=== PATIENT | female | born 1965 | race Caucasian/White ===

== ENCOUNTER 2020-06-08 13:50 | Outpatient (CLI) | payer OTHER, SELFPAY ==
--- NOTE | ~2020-06-08 | MMUS_ITS ---
EXAMINATION: MM diagnostic adonay BI w grace, US breast LT limited HISTORY: Patient feels a lump at 9:00 9 cm from nipple TECHNIQUE: ML, MLO and craniocaudal 3-D tomosynthesis images of both breasts were performed and synth etic 2-D images were generated. CAD analysis was submitted and interpreted. High resolution targeted left breast ultrasound at 9:00 9 cm from nipple where patient feels a lump breast ultrasound was perf ormed. COMPARISON: None BREAST PARENCHYMAL COMPOSITION: There are scattered areas of fibroglandular density. FINDINGS: MAMMOGRAPHIC FINDINGS: No suspicious mass or architectural distortion, malignant calcification, skin thickening or retractio n is detected. No abnormality is identified at the area of clinical complaint at 9:00; there is fatty tissue in this region. Bilateral axillary tail benign-appearing lymph nodes are noted. ULTRASOUND: There is no evidence of focal abnormal solid or cystic lesion in the vicinity of the patient's compla int of lump at 9:00 9 cm from nipple. IMPRESSION: 1. No mammographic evidence of malignancy 2. Routine mammographic screening is recommended. BI-RADS Category 2: Benign finding(s). Reviewed, dictated and finalized at location A. GRINDER IMPRESSION: 1. No mammographic evidence of malignancy 2. Routine mammographic screening is recommended. BI-RADS Category 2: Benign finding(s).
== END 2020-06-08 13:51 | disposition home or self-care (01) ==
PROVIDERS: Visit Provider Nurse Practitioner Family
DX: N63.20 Unspecified lump in the left breast, unspecified quadrant (principal); R92.8 Other abnormal and inconclusive findings on diagnostic imaging of breast
CPT/HCPCS: 76642; 77062; 77066; G0279

== ENCOUNTER 2020-12-26 11:52 | Inpatient (IN) | payer OTHER, SELFPAY ==
[2020-12-26] VITALS (9 sets, daily range): BP systolic 130–159; BP diastolic 65–93; PULSE 97–113; RESP 15–20; TEMP 36.2–36.6; O2SAT 94–98
--- NOTE | ~2020-12-26 | XR_ITS ---
EXAMINATION: XR lumbar puncture diagnostic EXAM DATE: 12/27/2020 17:46 INDICATION: Altered mental status. 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 Left-sided mastoiditis. TECHNIQUE: Informed consent was obtained from the patient for doing this procedure. I discussed bene fits and risks including bleeding, infection, backache and headache. Alternatives also discussed. Rad iologist Barak Lopez M.D. performed the procedure with date of pulsed dose reduction fluoroscopy, wit h fluoroscopic time of 0.1 minutes. The DAP for this procedure was 0.2 Gycm2. A total of 3 images o btained for the exam. A timeout procedure was performed. The back was prepped in standard sterile fashion with Betadine. L3/4 entry site was chosen under fluoroscopic guidance and infiltrated with 1% lidocaine. The thecal sac was then accessed from a right paracentral approach using a 5 22G needle. Opening pressure determined to be 18 mmHg, normal. 11 of clear cerebral spinal fluid were then drain ed and placed in 4 consecutive vials which were labeled and sent to lab for analysis. There were no immediate complications. IMPRESSION: Status post fluoroscopic guided lumbar puncture. Reviewed, dictated and finalized at location A.
--- NOTE | ~2020-12-26 | CT_ITS ---
EXAMINATION: CTA brain carotid DATE: 12/27/2020 02:17 INDICATION: Headache. Speech deficit. TECHNIQUE: Computed tomographic angiography (CTA) of the head was performed with 100 mL Omnipaque-350 intravenous contrast. CTA of the neck was performed with intravenous contrast. Automated exposure co ntrol and iterative reconstruction technique were employed. The dose-length product was 1158.11 mGy-c m. Maximum intensity projection and volume rendered 3D-reconstructions were created by the technLoudcasteri st on a separate workstation. COMPARISON: Head CT 12/26/2020 FINDINGS: HEAD CTA: There is no intracranial hemorrhage, acute infarction, or abnormal intracranial mass lesion . The ventricles are normal in size. The orbits are normal. There is mucosal thickening in the parana katelin sinuses. There is a left otomastoid effusion. There is a trace right mastoid effusion. The verteb ral arteries are codominant. There is no significant stenosis of basilar artery or the posterior cere bral arteries. There is no significant stenosis of the intracranial internal carotid arteries or ante rior or middle cerebral arteries. The posterior communicating arteries are normal. Anterior communica ting artery is normal. There is no aneurysm. NECK CTA: There are no pathologically enlarged lymph nodes. There is plaque in proximal left internal carotid artery. There is 0% stenosis of the proximal right internal carotid artery relative to laith l distal artery lumen diameter (NASCET criteria). There is 0% stenosis of the proximal left internal carotid artery relative to normal distal artery lumen diameter. There is moderate mild cervical spond ylosis. Dental disease is noted. IMPRESSION: 1. Normal brain. 2. No aneurysm or significant intracranial arterial stenosis. 3. Left otomastoid effusion. 4. 0% stenosis of the proximal internal carotid arteries relative to normal distal artery lumen diame ters (NASCET criteria). Reviewed, dictated and finalized at location A. IMPRESSION: 1. Normal brain. 2. No aneurysm or significant intracranial arterial stenosis. 3. Left otomastoid effusion. 4. 0% stenosis of the proximal internal carotid arteries relative to normal dis rita artery lumen diameters (NASCET criteria).
--- NOTE | ~2020-12-26 | CT_ITS ---
EXAMINATION: CT IAC/mastoids BI wo con DATE: 12/27/2020 15:16 INDICATION: Left-sided otomastoiditis. Headache. TECHNIQUE: Computed tomography (CT) of the temporal bones was performed without intravenous contrast. Automated exposure control and iterative reconstruction technique were employed. The dose-length pro duct was 0.00 mGy-cm. COMPARISON: Brain MRI 12/27/2020 FINDINGS: There is mucosal thickening in the paranasal sinuses. RIGHT TEMPORAL BONE: The internal auditory canal, cochlea, vestibule, semicircular canals, vestibular aqueduct, carotid ca nal, jugular bulb, facial nerve course, and tympanic membrane are normal. There is a 3 mm mass of mat erial or fluid lateral to head of malleus. Scutum is normal. There is a trace right mastoid effusion. External auditory canal is normal. LEFT TEMPORAL BONE: The internal auditory canal, cochlea, vestibule, semicircular canals, vestibular aqueduct, carotid ca nal, and jugular bulb are normal. There is opacification of the majority of the tympanic cavity and m astoid air cells. There is dehiscence of tegmen mastoideum and tegmen tympani. IMPRESSION: 1. Opacification of the majority of left tympanic cavity and the left mastoid air cells with dehiscen ce of tegmen tympani and tegmen mastoideum, consistent with otomastoiditis. Reviewed, dictated and finalized at location A. IMPRESSION: 1. Opacification of the majority of left tympanic cavity and the left mastoid a ir cells with dehiscence of tegmen tympani and tegmen mastoideum, consistent wi th otomastoiditis.
--- NOTE | ~2020-12-26 | XR_ITS ---
EXAMINATION: XR chest 1V portable DATE: 12/28/2020 08:22 INDICATION: Transient alteration of awareness. TECHNIQUE: A single frontal view of the chest was obtained. COMPARISON: Chest 2 views 05/17/2011 FINDINGS: There is no pneumonia, pleural effusion, or pneumothorax. Cardiomegaly is noted. IMPRESSION: 1. Cardiomegaly. Reviewed, dictated and finalized at location A. IMPRESSION: 1. Cardiomegaly.
--- NOTE | ~2020-12-26 | MR_ITS ---
EXAMINATION: MR brain/brain stem wo/w con DATE: 12/27/2020 09:29 INDICATION: Altered mental status. Left mastoiditis. TECHNIQUE: Magnetic resonance imaging (MRI) of the brain and brainstem was performed without and with 20 mL MultiHance intravenous contrast. Sequences included sagittal and axial T1-weighted FSE, axial diffusion-weighted FS EPI, axial T2*-weighted GRE, axial T2-weighted FLAIR Propeller, axial T2-weight ed Propeller, small bjuip-vu-xgeu coronal FIESTA, small oodht-bt-shjt coronal T1-weighted FSE, and sm all wryxy-gt-quqn axial T1-weighted SPGR. Postcontrast sequences included axial T1-weighted FSE, smal l aesjf-ei-ccql coronal T1-weighted FSE, and small fdymy-ir-yxas axial T1-weighted SPGR. Apparent dif fusion coefficient (ADC) maps were created. COMPARISON: Head CT 12/27/2020 FINDINGS: There is no intracranial hemorrhage, acute infarction, or abnormal intracranial mass lesion . The ventricles are normal in size. There is a left otomastoid effusion with extensive enhancement. There is a small right mastoid effusion. There is mucosal thickening in the paranasal sinuses. The or bits are normal. IMPRESSION: 1. Normal brain. 2. Left-sided otomastoiditis. Reviewed, dictated and finalized at location A.
--- NOTE | ~2020-12-26 | CT_ITS ---
EXAMINATION: CT brain wo con DATE: 12/26/2020 13:25 INDICATION: Confusion. Speech deficit. TECHNIQUE: Computed tomography (CT) of the head was performed without intravenous contrast. The mA wa s adjusted according to patient size. Iterative reconstruction technique was employed. The dose-lengt h product was 605.33 mGy-cm. COMPARISON: None FINDINGS: There is no intracranial hemorrhage, acute infarction, or abnormal intracranial mass lesion . The ventricles are normal in size. The orbits are normal. There is mucosal thickening in the parana katelin sinuses. There is a left otomastoid effusion. IMPRESSION: 1. Normal brain. 2. Left otomastoid effusion. Reviewed, dictated and finalized at location A.
--- NOTE | ~2020-12-26 | CT_ITS ---
EXAMINATION: CT brain wo con DATE: 12/31/2020 09:48 INDICATION: Aphasia. TECHNIQUE: Computed tomography (CT) of the head was performed without intravenous contrast. The mA wa s adjusted according to patient size. Iterative reconstruction technique was employed. The dose-lengt h product was 605.33 mGy-cm. COMPARISON: Head CT 12/27/2020, brain MRI 12/27/20 FINDINGS: There is no intracranial hemorrhage, acute infarction, or abnormal intracranial mass lesion . The ventricles are normal in size. There is a left otomastoid effusion that enhanced on the prior M RI, consistent with otomastoiditis. The orbits are normal. There is mucosal thickening in the paranas al sinuses. IMPRESSION: 1. No visible acute intracranial pathology. Note that the left temporal lobe leptomeningeal enhanceme nt seen by the prior MRI would not be expected to be visible by noncontrast head CT. 2. Left otomastoiditis. Reviewed, dictated and finalized at location A. IMPRESSION: 1. No visible acute intracranial pathology. Note that the left temporal lobe le ptomeningeal enhancement seen by the prior MRI would not be expected to be visi ble by noncontrast head CT. 2. Left otomastoiditis.
[2020-12-26 12:11] LABS: Glucose Point of Care > 500 mg/dl (65-105)
--- NOTE | 2020-12-26 12:15 | ECG_ITS ---
Measurements Intervals [place] Rate: 112 P: 23 [place]: 165 QRS: 3 QRSD: 93 T: 14 QT: 326 QTc: 447 Interpretive Statements SINUS TACHYCARDIA POSSIBLE LEFT ATRIAL ENLARGEMENT ANTERIOR INFARCT, AGE INDETERMINATE INFERIOR INFARCT, AGE INDETERMINATE ABNORMAL ECG Electronically Signed On 12-26-2020 12:48:17 CDT by Isrrael Antoine D.O.
[2020-12-26 12:28] LABS: Basophils Percent Auto 0.4 % (0.2-1.2); Eosinophils Percent Auto 0.2 % (0-4.4); Hematocrit 39.8 % (37.0-47.0); Hemoglobin 13.2 g/dL (12.0-15.0); Immature Granulocyte Absolute 0.08 K/mm3 (0.00-0.031); Immature Granulocyte Percent A 0.8 % (0-0.5); Lymphocytes Absolute Auto 1.79 K/mm3 (0.9-3.2); Lymphocytes Percent Auto 17.7 % (18.3-44.2); Mean Corpuscular HGB Conc 33.2 g/dl (32-36); Mean Corpuscular Hemoglobin 28.4 pg (26-34); Mean Corpuscular Volume 85.6 fl (80-100); Mean Platelet Volume 9.2 fl (7.4-10.4); Monocytes Absolute Auto 0.3 K/mm3 (0.1-0.6); Monocytes Percent Auto 2.9 % (2.6-8.5); Neutrophils Absolute Auto 7.9 K/mm3 (1.3-6.7); Platelet Count Result 385 k/mm3 (150-375); Red Blood Count 4.65 M/mm3 (4.2-5.4); Red Cell Distribution Width 12.9 % (11.5-14.5); White Blood Count 10.1 K/mm3 (4.5-10.0)
[2020-12-26 12:42] LABS: Alanine Aminotransferase 37 U/L (4-35); Albumin Level 4.1 g/dL (3.5-5.1); Alkaline Phosphatase 173 U/L (38-126); Anion Gap 11 mmol/L (8-16); Aspartate Amino Transferase 40 U/L (14-36); Bilirubin,Total 0.6 mg/dL (0.2-1.3); Blood Urea Nitrogen 13 mg/dL (7-17); Calcium 9.7 mg/dL (8.4-10.2); Carbon Dioxide 26 mmol/L (22-30); Chloride 94 mmol/L (98-107); Estimated CRCL calculation 107 ml/min; Estimated Glomerular Filt Rate > 60; Glucose 543 mg/dL (65-105); Magnesium 1.4 mg/dL (1.6-2.3); Sodium 131 mmol/L (137-145)
[2020-12-26 12:46] LABS: Add Urine Microscopic? YES; Appearance Urine Cloudy (Clear); Bacteria Urine Trace /hpf; Bilirubin Urine Negative (Negative); Blood Urine Negative (Negative); Color Urine Yellow (Yellow); Glucose Urine UA 3+ mg/dL (Negative); Ketones Urine Trace mg/dL (Negative); Leukocyte Esterase Ur Negative LEU/UL (Negative); Mucus Urine Rare /lpf; Nitrate Urine Negative (Negative); Protein Urine 1+ mg/dL (Negative); Specific Grav Ur 1.038 (1.001-1.035); Squamous Epithelial Cell Urine Many /hpf (Few); Urobilinogen Urine Negative mg/dL (<2.0)
[2020-12-26 12:52] LABS: Beta-Hydroxybutyrate/Acetoacetate 0.45 mmol/L (0.02-0.27)
[2020-12-26] MEDS: SODIUM CHLORIDE 0.9% IV 1,000 ML 999 ML IV CONT (13:13)
[2020-12-26] MEDS: INSULIN HUMAN REGULAR (*BKC) 100 UNITS/ML 10 UNITS IV PUSH (13:13)
--- NOTE | 2020-12-26 13:34 | ED.GENADULT ---
HPI - General Adult General Chief complaint: Neuro Symptoms/Deficit Stated complaint: difficulty speaking, confusion Time Seen by Provider: 12/26/20 13:05 Source: patient History of Present Illness HPI narrative: Patient is a 55 y/o female complaining of confusion, left sided headache and difficulty with speech for several days. She states that she was seen at [facility] for left ear infection about 1 week ago and her symptoms started shortly after. She was given Keflex. She saw Dr. Guerrier (ENT) about 5 days ago and was told that she has ruptured TM. There is no known alleviating or exacerbating factor. She rates her pain as 7-8/10. She has some nausea, but no vomiting. Related Data Home Medications Medication Instructions Recorded Confirmed cephalexin 12/26/20 ciprofloxacin-dexamethasone drp 12/26/20 [Ciprodex] gabapentin 12/26/20 glipizide mg PO 12/26/20 metformin mg 12/26/20 Allergies Allergy/AdvReac Type Severity Reaction Status Date / Time Penicillins Allergy Unknown Nausea Verified 12/26/20 18:08 Review of Systems Constitutional: Constitutional: Denies chills, Denies fever(s), Reports headache(s) and Denies weakness Eyes: Eyes: Denies blurry vision ENT: Reports headache(s) and Denies neck pain Cardiovascular: Cardiovascular: Denies chest pain and Denies dyspnea Respiratory: Respiratory: Denies cough and Denies dyspnea Gastrointestinal: Gastrointestinal: Denies abdominal pain, Denies diarrhea, Reports nausea and Denies vomiting Genitourinary: Genitourinary: Denies hematuria and Denies dysuria Musculoskeletal: Musculoskeletal: Denies back pain and Denies neck pain Neurologic: Reports Abnormal speech present, Reports confusion, Reports headache(s) and Denies weakness [facility] Social History Social History Smoking status: Former smoker Smoking end date: 06/18/12 Alcohol intake: never Substance use: never Gender identity (if verbalized by the patient): Female Spiritual care concerns: No Exam Const: General: no acute distress and well developed Orientation/consciousness: oriented to person, oriented to place, oriented to time and patient oriented x3 HENMT: Head: normocephalic Ears: external ears normal General nose exam: Normal external nose present Eyes: General: appearance normal, both eyes and all related structures Conjunctivae: conjunctivae normal Neck: Neck: normal visual inspection and full ROM Chest: Chest palpation & inspection: normal inspection of the chest and no tenderness Resp: Effort & Inspection: normal respiratory effort Auscultation: clear to auscultation bilaterally Cardio: Rate: tachycardic Rhythm: regular rhythm GI: GI Palp: No abdominal tenderness and Yes Soft to palpation Skin: General skin exam: normal color and turgor normal Neuro: General: oriented to person, oriented to place, oriented to time and patient oriented x3 Cognition (Neuro): normal cognition Extrem: General: normal to inspection, full ROM and no pedal edema Psych: Appearance: grossly normal Mental Status: mental status grossly normal Affect: normal affect Course Consultations Consultation #1: Discussed with Dr. Crow, who agrees to evaluate the patient tomorrow if admitted. Date: 12/26/20 Time: 16:11 Consultation #2: Discussed with OLIVE Reno, who agrees to admit. Date: 12/26/20 Time: 16:32 Vital Signs Vital signs: Vital Signs Temperature 36.6 C 12/26/20 12:06 Pulse Rate 113 H 12/26/20 12:06 Respiratory Rate 18 12/26/20 12:06 Blood Pressure 152/93 H 12/26/20 12:06 Pulse Oximetry 98 12/26/20 12:06 Temperature 36.2 C L 12/26/20 18:10 Pulse Rate 98 12/26/20 18:10 Respiratory Rate 18 12/26/20 18:10 Blood Pressure 143/68 H 12/26/20 18:10 Pulse Oximetry 95 12/26/20 18:10 Medical Decision Making Vital Signs Vital Signs: Vital Signs Temperature 36.6 C 12/26/20 12:06 Pulse Rate 1
[2020-12-26 15:07] LABS: Glucose Point of Care 377 mg/dl (65-105)
[2020-12-26] MEDS: INSULIN HUMAN REGULAR (*BKC) 100 UNITS/ML 8 UNITS SUB-Q (15:27)
--- NOTE | 2020-12-26 18:00 | PM.IMHP ---
H&P: HPI History of Present Illness Date/Time: 12/26/20 18:00 Chief Complaint: Altered mental status, left-sided headache. Narrative: This is a 55-year-old female with type 2 diabetes mellitus who presented to the emergency department earlier today via private vehicle from home for evaluation of altered mental status and left-sided headache. 8 days ago she was out running errands when she heard a sudden pop in her left ear associated with moderate pain. She was seen in the emergency department at [facility] and was prescribed cephalexin for a middle ear infection. She continued to have pain and was seen by Dr. Guerrier (ENT) at which time she was told that she had a small tear in her tympanic membrane and she was prescribed Ciprodex. Unfortunately her pain has gotten worse and is now in the postauricular region and seems to radiate into the left side of the head into the left faith. She has been taking ibuprofen which has not provided her with much relief. Over the past couple of days she has started to feel confused and on occasion feels as though she is having difficulties getting out the words that she wants to say. She has been running a low-grade fever but denies chills and sweats. She has not had any visual changes and she denies tinnitus and aural fullness. No vertigo, focal weakness, or paresthesias. She has not had facial weakness, dysarthria, or dysphagia. No falls or head trauma. Review of Systems Review of Systems: Narrative: Twelve systems were reviewed with pertinent positives and negatives as per HPI. No blurry vision, polydipsia, or polyuria. She admits that she does not check her glucose very often. Her appetite has not been good and she has had some nausea and did vomit couple of times. Stools have been a bit loose but not in significant quantities. No significant sinus congestion, rhinorrhea, otalgia, or odynophagia. She denies cough and shortness of breath. No chest pain, pleuritic pain, palpitations, PND, or lower extremity edema. Except as documented, all other systems were reviewed and are negative. [facility] Past Medical History Medical History (Updated 12/26/20 @ 23:33 by Tisha Mcconnell PA-C) Kidney stones Type 2 diabetes mellitus Surgical History Surgical History (Updated 12/26/20 @ 23:29 by Tisha Mcconnell PA-C) History of bilateral carpal tunnel release History of section History of cholecystectomy History of hernia repair Family History Family History (Updated 12/26/20 @ 23:29 by Tisha Mcconnell PA-C) Other Diabetes mellitus Hypertension Social History Social History (Updated 12/26/20 @ 23:29 by Tisha Mcconnell PA-C) Social History: Lives in [place]. Works for [employer] in [place]. Former smoker quit in 2012. No alcohol or illicit substance abuse. Her Alexis is her surrogate decision maker. Code status: Full code. Meds Home Medications and Allergies Home Medications Medication Instructions Recorded Confirmed Type cephalexin 12/26/20 History ciprofloxacin-dexamethasone drp 12/26/20 History [Ciprodex] gabapentin 12/26/20 History glipizide mg PO 12/26/20 History metformin mg 12/26/20 History Allergies Allergy/AdvReac Type Severity Reaction Status Date / Time Penicillins Allergy Unknown Nausea Verified 12/26/20 18:08 Vital Signs Vital Signs - 24 hr 12/26/20 12:06 12/26/20 13:16 12/26/20 14:18 Temperature 98 F Pulse Rate 113 H 113 H 104 H Respiratory Rate 18 17 19 Blood Pressure 152/93 H 152/81 H 152/81 H Pulse Oximetry 98 94 95 12/26/20 16:17 12/26/20 17:31 12/26/20 18:10 Temperature 97.2 F L Pulse Rate 105 H 105 H 98 Respiratory Rate 15 20 18 Blood Pressure 130/65 159/80 H 143/68 H Pulse Oximetry 95 98 95 Exam Narrative: Exam Narrative: General: mildly ill-appearing female sitting up in bed in no distress. Weight: 110.9 kg. BMI: 44.7. HEENT: Normocephalic, atraumatic. PERRL
--- NOTE | 2020-12-26 18:09 | ADMGEN ---
This patient, Zeenat Story, was admitted to Medical Room 245-. Patient/family oriented to hospital policies and general routines including ID bracelet, bed and alarms, visiting hours, pain management, procedures, bathroom and other care routines, personal items, smoking policy, room service/diet, and visiting hours. Information on how to activate the Rapid Response Team has been discussed. Patient/Family are encouraged to report perceived risks to care and to ask questions if they do not understand what they are told or what they should do.
[2020-12-26 18:47] LABS: Glucose Point of Care 309 mg/dl (65-105)
--- NOTE | 2020-12-26 19:00 | PC.NURSE ---
call to pharmacy to request a dose of SSI for dinner today rather than starting in a.m
[2020-12-26] MEDS: SODIUM CHLORIDE 0.9% IV 1,000 ML 100 ML IV CONT (19:16)
[2020-12-26 19:19] LABS: Ammonia < 9 umol/L (9-30)
[2020-12-26 19:23] LABS: Anion Gap 10 mmol/L (8-16); Blood Urea Nitrogen 12 mg/dL (7-17); CRP 1.6 mg/dL (<1.0); Calcium 9.4 mg/dL (8.4-10.2); Carbon Dioxide 26 mmol/L (22-30); Chloride 98 mmol/L (98-107); Estimated CRCL calculation 107 ml/min; Estimated Glomerular Filt Rate > 60; Glucose 330 mg/dL (65-105); Hemoglobin A1C 10.8 % (<5.7); Magnesium 1.4 mg/dL (1.6-2.3); Potassium 3.9 mmol/L (3.4-5.0); Sodium 134 mmol/L (137-145)
[2020-12-26 19:26] LABS: Lactic Acid Reflex 1.7 mmol/L (0.7-2.1)
[2020-12-26 19:42] LABS: Erythrocyte Sedimentation Rate 64 mm/hr (0-20)
[2020-12-26] MEDS: HYDROcodone/acetaminophen (*CRX) 5-325 MG TABLET 1 TAB PO (20:52)
[2020-12-26] MEDS: INSULIN ASPART (*BKC) 100 UNITS/ML SUB-Q (20:59)
[2020-12-26 21:43] LABS: Hepatitis B Surface Antigen Negative (Negative)
[2020-12-26 21:48] LABS: HAV RESULT Negative (Negative); Hepatitis B Core IgM Result Negative (Negative)
[2020-12-26 22:00] LABS: Hepatitis C Virus Antibody Negative (Negative)
[2020-12-27] VITALS (11 sets, daily range): BP systolic 135–172; BP diastolic 48–97; PULSE 90–130; RESP 16–20; TEMP 35.9–36.5; O2SAT 92–97; BMI 44.7
[2020-12-27 00:13] LABS: Glucose Point of Care 288 mg/dl (65-105)
[2020-12-27] MEDS: MAGNESIUM SULF 2 GM/WATER 50ML 2 GM/50 ML BAG IVPB (00:52)
[2020-12-27 01:55] LABS: Glucose Point of Care 371 mg/dl (65-105)
[2020-12-27] MEDS: HYDROcodone/acetaminophen (*CRX) 5-325 MG TABLET 1 TAB PO ×3 (02:23→20:11)
[2020-12-27] MEDS: INSULIN ASPART (*BKC) 100 UNITS/ML 6 UNITS SUB-Q (03:31)
[2020-12-27 05:45] LABS: Hematocrit 37.2 % (37.0-47.0); Hemoglobin 12.1 g/dL (12.0-15.0); Mean Corpuscular HGB Conc 32.5 g/dl (32-36); Mean Corpuscular Hemoglobin 28.1 pg (26-34); Mean Corpuscular Volume 86.5 fl (80-100); Mean Platelet Volume 9.3 fl (7.4-10.4); Platelet Count Result 401 k/mm3 (150-375); Red Cell Distribution Width 12.9 % (11.5-14.5)
[2020-12-27 06:06] LABS: Alanine Aminotransferase 30 U/L (4-35); Albumin Level 3.6 g/dL (3.5-5.1); Alkaline Phosphatase 132 U/L (38-126); Anion Gap 9 mmol/L (8-16); Aspartate Amino Transferase 37 U/L (14-36); Bilirubin,Total 0.4 mg/dL (0.2-1.3); Blood Urea Nitrogen 12 mg/dL (7-17); Calcium 8.7 mg/dL (8.4-10.2); Carbon Dioxide 25 mmol/L (22-30); Chloride 95 mmol/L (98-107); Estimated CRCL calculation 107 ml/min; Estimated Glomerular Filt Rate > 60; Glucose 355 mg/dL (65-105); Magnesium 1.7 mg/dL (1.6-2.3); Potassium 4.4 mmol/L (3.4-5.0); Sodium 129 mmol/L (137-145)
--- NOTE | 2020-12-27 08:00 | PC.NURSE ---
ear wound culture was not obtained due to no internal or external drainage present. no wound site found
--- NOTE | 2020-12-27 08:06 | PC.NURSE ---
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 Pt would be in the middle of conversation and answering appropriately and then start talking with numbers and letters and pointing to objects. I asked the pt multiple times if what she was saying made sense to her and she would shake her head no. She also stated things made sense in her head but did not come out right when she spoke them. Dr. Schwartz was called and notified of pt condition and ordered stat CTAs. No abnormal results were obtained. Waiting for MRI.
[2020-12-27 08:09] LABS: Glucose Point of Care 356 mg/dl (65-105)
--- NOTE | 2020-12-27 08:27 | WPDCN ---
Assessment and Plan Assessment and plan (1) Otitis media, left: Code(s): H66.92 - Otitis media, unspecified, left ear Status: Acute Assessment and Plan: The patient has otitis media and likely a mastoiditis on the left side. Per my review there is no tegmen dehiscence although a CTA is not the gold standard to image the skull base in this location. I recommend initiating antibiotic protocol for meningitis as the patient likely has a left-sided temporal lobe meningitis /brain infection causing the word finding difficulties, the likely source being the left-sided ear. If neurologic evaluation needed recommend transfer for higher acuity care. If the patient is to remain inpatient recommend a ct temporal bone and MRI for evaluation of the brain/meninges. Daily cbc. If the patient fails to improve in 24-48 hours, or worsens at any point would recommend OR for urgent placement of left sided myringotomy tube. (2) Middle ear infection: Code(s): H66.90 - Otitis media, unspecified, unspecified ear Status: Acute (3) Mastoiditis of left side: Code(s): H70.92 - Unspecified mastoiditis, left ear Status: Acute HPI Data of Consult Date/Time: 12/27/20 08:27 Requesting Physician: Gt Flores MD Primary Care Provider: CORONER/MEDICAL EXAMINER PHYSICIAN Consult Narrative Narrative: Zeenat Story is a 55 year old female with a history of left-sided ear infection. Reports word finding difficulties over the past several days. White count elevated at 11. CTA per my personal review demonstrates left-sided mastoid effusion almost all of the cells as well as middle ear effusion. Patient currently on cefepime. Review of Systems Constitutional: Constitutional: Denies fatigue, Denies fever(s) and Denies lethargy Eyes: Eyes: Denies blurry vision and Denies change in vision ENT: Reports as per HPI Cardiovascular: Cardiovascular: Denies chest pain Respiratory: Respiratory: Denies cough Endocrine: Endocrine: Denies fatigue Hematologic/Lymphatic: Hematologic/Lymphatic: Denies easy bleeding, Denies easy bruising and Denies lymphadenopathy Allergic/Immunologic: Allergic/Immunologic: Denies seasonal rhinorrhea [facility] Past Medical History Medical History (Updated 12/27/20 @ 08:30 by Santino Crow MD) Kidney stones Type 2 diabetes mellitus Surgical History Surgical History (Updated 12/26/20 @ 23:29 by Tisha Mcconnell PA-C) History of bilateral carpal tunnel release History of section History of cholecystectomy History of hernia repair Family History Family History (Updated 12/26/20 @ 23:29 by Tisha Mcconnell PA-C) Other Diabetes mellitus Hypertension Social History Social History (Updated 12/26/20 @ 23:29 by Tisha Mcconnell PA-C) Social History: Lives in [place]. Works for [employer] in [place]. Former smoker quit in 2012. No alcohol or illicit substance abuse. Her Alexis is her surrogate decision maker. Code status: Full code. Meds Home Medications and Allergies Home Medications Medication Instructions Recorded Confirmed Type cephalexin 12/26/20 History ciprofloxacin-dexamethasone drp 12/26/20 History [Ciprodex] gabapentin 12/26/20 History glipizide mg PO 12/26/20 History metformin mg 12/26/20 History Allergies Allergy/AdvReac Type Severity Reaction Status Date / Time Penicillins Allergy Unknown Nausea Verified 12/26/20 18:08 Vital Signs Vital Signs - 24 hr 12/26/20 12:06 12/26/20 13:16 12/26/20 14:18 Temperature 36.6 C Pulse Rate 113 H 113 H 104 H Respiratory Rate 18 17 19 Blood Pressure 152/93 H 152/81 H 152/81 H Pulse Oximetry 98 94 95 12/26/20 16:17 12/26/20 17:31 12/26/20 18:10 Temperature 36.2 C L Pulse Rate 105 H 105 H 98 Respiratory Rate 15 20 18 Blood Pressure 130/65 159/80 H 143/68 H Pulse Oximetry 95 98 95 12/26/20 18:33 12/26/20 20:00 12/26/20 21:50 Temperature 36.4 C Pulse R
--- NOTE | 2020-12-27 09:11 | PC.NURSE ---
Patient to MRI per wheelchair.
[2020-12-27] MEDS: INSULIN ASPART (*BKC) 100 UNITS/ML SUB-Q ×4 (09:36→19:37)
[2020-12-27 09:43] LABS: Glucose Point of Care 322 mg/dl (65-105)
[2020-12-27 12:25] LABS: Glucose Point of Care 386 mg/dl (65-105)
[2020-12-27] MEDS: SODIUM CHLORIDE 0.9% IV 1,000 ML 100 ML IV CONT (12:34)
--- NOTE | 2020-12-27 14:05 | WPDANESEPPF ---
Anes - Initial Pre Proc Eval Procedure: Operation Date: 12/28/20 10:30 Proposed Procedures p Left Myringotomy,Insertion Of Tube - Singh Syed MD <Tano Sanders MD - Last Filed: 12/29/20 07:18> Date/Time: 12/27/20 14:05 <Tano Sanders MD - Last Filed: 12/29/20 07:18> Surgeon: Rima Batres PA-C <Tano Sanders MD - Last Filed: 12/29/20 07:18> Pre Op Diagnosis: mastoiditis/ams <Tano Sanders MD - Last Filed: 12/29/20 07:18> Patient Data Age: 55 Gender: F Height: 1.57 m Weight: 111 kg <Tano Sanders MD - Last Filed: 12/29/20 07:18> Last Vital Signs Temp 35.9 C L 12/27/20 06:00 Pulse 102 H 12/27/20 08:00 Resp 16 12/27/20 06:00 BP 148/71 H 12/27/20 06:00 Pulse Ox 96 12/27/20 06:00 <Tano Sanedrs MD - Last Filed: 12/29/20 07:18> Allergies Allergy/AdvReac Type Severity Reaction Status Date / Time Penicillins Allergy Unknown Nausea Verified 12/26/20 18:08 <Tano Sanders MD - Last Filed: 12/29/20 07:18> Home Medications Medication Instructions Recorded Confirmed Type cephalexin 12/26/20 History ciprofloxacin-dexamethasone drp 12/26/20 History [Ciprodex] gabapentin 12/26/20 History glipizide 10 mg PO DAILY 12/26/20 12/28/20 History metformin 1,000 mg PO DAILY 12/26/20 12/28/20 History <Tano Sanders MD - Last Filed: 12/29/20 07:18> Laboratory Tests 12/26/20 12/26/20 12/26/20 15:05 18:29 18:58 WBC RBC Hgb Hct MCV MCH MCHC RDW Plt Count MPV ESR 64 mm/hr H mm/hr (0-20) Sodium Potassium Chloride Carbon Dioxide Anion Gap BUN Creatinine Estim Creat Clear Calc Estimated GFR Glucose POC Capillary Glucose 377 mg/dl H mg/dl 309 mg/dl H mg/dl (65-105) (65-105) Hemoglobin A1c Lactic Acid Calcium Magnesium Total Bilirubin AST ALT Alkaline Phosphatase Ammonia C-Reactive Protein Total Protein Albumin Vitamin B12 TSH (Reflex) Lyme IgG 18 kDa Band Lyme IgG 23 kDa Band Lyme IgG 28 kDa Band Lyme IgG 30 kDa Band Lyme IgG 39 kDa Band Lyme IgG 41 kDa Band Lyme IgG 45 kDa Band Lyme IgG 58 kDa Band Lyme IgG 66 kDa Band Lyme IgG 93 kDa Band Lyme IgG Ab (Immblot) Lyme IgM Ab (Immblot) Lyme IgM 23 kDa Band Lyme IgM 39 kDa Band Lyme IgM 41 kDa Band Hepatitis A IgM Ab Hep Bs Antigen Hep B Core IgM Ab Hepatitis C Ab Screen 12/26/20 12/26/20 12/26/20 18:58 18:58 18:58 WBC RBC Hgb Hct MCV MCH MCHC RDW Plt Count MPV ESR Sodium 134 mmol/L L mmol/L (137-145) Potassium 3.9 mmol/L mmol/L (3.4-5.0) Chloride 98 mmol/L mmol/L (98-107) Carbon Dioxide 26 mmol/L mmol/L (22-30) Anion Gap 10 mmol/L mmol/L (8-16) BUN 12 mg/dL mg/dL (7-17) Creatinine 0.60 mg/dL L mg/dL (0.7-1.0) Estim Creat Clear Calc 107 ml/min ml/min Estimated GFR > 60 (59 - ) Glucose 330 mg/dL H mg/dL (65-105) POC Capillary Glucose Hemoglobin A1c 10.8 % H % (<5.7) Lactic Acid 1.7 mmol/L mmol/L (0.7-2.1) Calcium 9.4 mg/dL mg/dL (8.4-10.2) Magnesium 1.4 mg/dL L mg/dL (1.6-2.3
--- NOTE | 2020-12-27 14:54 | PM.IMHP ---
H&P: HPI History of Present Illness Date/Time: 12/27/20 14:54 Patient presents for planned surgical procedure left tube myringotomy. Chief Complaint: left otitis media,left mastoiditis Review of Systems Constitutional: Constitutional: Denies fatigue, Denies fever(s) and Denies lethargy Eyes: Eyes: Denies blurry vision and Denies change in vision ENT: Reports as per HPI Cardiovascular: Cardiovascular: Denies chest pain Respiratory: Respiratory: Denies cough Endocrine: Endocrine: Denies fatigue Hematologic/Lymphatic: Hematologic/Lymphatic: Denies easy bleeding, Denies easy bruising and Denies lymphadenopathy Allergic/Immunologic: Allergic/Immunologic: Denies seasonal rhinorrhea [facility] Past Medical History Medical History (Updated 12/27/20 @ 14:06 by Tano Sanders MD) Kidney stones Morbid obesity with BMI of 40.0-44.9, adult Type 2 diabetes mellitus Surgical History Surgical History (Updated 12/26/20 @ 23:29 by Tisha Mcconnell PA-C) History of bilateral carpal tunnel release History of section History of cholecystectomy History of hernia repair Family History Family History (Updated 12/26/20 @ 23:29 by Tisha Mcconnell PA-C) Other Diabetes mellitus Hypertension Social History Social History (Updated 12/26/20 @ 23:29 by Tisha Mcconnell PA-C) Social History: Lives in [place]. Works for the [employer] in [place]. Former smoker quit in 2012. No alcohol or illicit substance abuse. Her Alexis is her surrogate decision maker. Code status: Full code. Meds Home Medications and Allergies Home Medications Medication Instructions Recorded Confirmed Type cephalexin 12/26/20 History ciprofloxacin-dexamethasone drp 12/26/20 History [Ciprodex] gabapentin 12/26/20 History glipizide mg PO 12/26/20 History metformin mg 12/26/20 History Allergies Allergy/AdvReac Type Severity Reaction Status Date / Time Penicillins Allergy Unknown Nausea Verified 12/26/20 18:08 Vital Signs Vital Signs - 24 hr 12/26/20 16:17 12/26/20 17:31 12/26/20 18:10 Temperature 36.2 C L Pulse Rate 105 H 105 H 98 Respiratory Rate 15 20 18 Blood Pressure 130/65 159/80 H 143/68 H Pulse Oximetry 95 98 95 12/26/20 18:33 12/26/20 20:00 12/26/20 21:50 Temperature 36.4 C Pulse Rate 97 103 H 99 Respiratory Rate 16 Blood Pressure 150/76 H Pulse Oximetry 96 12/27/20 00:00 12/27/20 04:00 12/27/20 06:00 Temperature 35.9 C L Pulse Rate 94 100 97 Respiratory Rate 16 Blood Pressure 148/71 H Pulse Oximetry 96 12/27/20 08:00 Temperature Pulse Rate 102 H Respiratory Rate Blood Pressure Pulse Oximetry Exam Const: General: cooperative, healthy appearing, comfortable, well developed and alert HENMT: Head: normal to inspection, normocephalic and atraumatic Ears: hearing grossly normal bilaterally, external ears normal, TM's abnormal bilaterally ( Left middle ear effusion purulence) and EAC's normal General nose exam: Normal external nose present, Normal nares present, No nasal polyps present, Normal nasal mucous membranes and turbinates present and Normal septum present Face and sinus: normal facial exam Mouth: Yes Normal oral and palatal mucosa present, Yes lip normal, Yes tongue normal, Yes oropharynx normal and Yes moist mucous membranes Teeth and gingiva: dentition normal and gingiva normal Throat: posterior oropharynx normal, tonsils normal and uvula midline Eyes: General: appearance normal, both eyes and all related structures Periorbital: periorbital findings normal Eyelids: eyelids normal Conjunctivae: conjunctivae normal Sclera: sclerae normal Neck: Neck: normal visual inspection, full ROM and no lymphadenopathy Thyroid: thyroid normal Lymphatic: no lymphadenopathy noted Resp: Effort & Inspection: normal respiratory effort and able to speak in complete sentences Cardio: Jugular venous distension: no JVD Neuro: Cranial ne
[2020-12-27 15:15] LABS: Prothrombin Time 13.2 Seconds (11.1-14.7)
[2020-12-27 15:17] LABS: Partial Thromboplastin Time 21.1 SECONDS (22.3-36.8)
--- NOTE | 2020-12-27 16:25 | PC.NURSE ---
Pt to X-ray for lumbar puncture. Consent signed.
--- NOTE | 2020-12-27 16:38 | PM.IMPN ---
Progress Note: A&P Assessment and Plan (1) Meningitis: Code(s): G03.9 - Meningitis, unspecified Status: Acute Assessment and Plan: Pt's symptoms and imaging concerning for meningitis -I got a call from Dr. Verma stating there was temporal meningeal enhancement on MRI, he is going to addendum -Continue cefepime and vanc -Spoke with [facility]. Pt accepted to [facility] under Dr. Dyer and I spoke to the hospitalist, ENT, and neurology. No new orders -LP ordered -Listeria and HSV seems less likely in the setting of otomasoiditis with temporal meningitis on the same side. - consult neurology (2) Altered mental status: Qualifiers: Altered mental status type: unspecified Qualified Code(s): R41.82 - Altered mental status, unspecified Code(s): R41.82 - Altered mental status, unspecified Status: Acute Assessment and Plan: 2/2 to above (3) Mastoiditis of left side: Code(s): H70.92 - Unspecified mastoiditis, left ear Status: Acute Assessment and Plan: Continue cefepime and vanc -ENT referral (4) Type 2 diabetes mellitus with hyperglycemia: Code(s): E11.65 - Type 2 diabetes mellitus with hyperglycemia Status: Acute Assessment and Plan: Last glucose 386 -Will schedule meal time insulin as well as lantus (5) Hypomagnesemia: Code(s): E83.42 - Hypomagnesemia Status: Acute Assessment and Plan: resolved (6) Elevated blood pressure reading: Code(s): R03.0 - Elevated blood-pressure reading, without diagnosis of hypertension Status: Acute Assessment and Plan: bp 155/89 -Monitor closely, not on any medications at home. Could be high due to pain (7) Middle ear infection: Code(s): H66.90 - Otitis media, unspecified, unspecified ear Status: Acute Assessment and Plan: as above Additional Plan correct sodium for hyperglycemia 135 patient being transferred to [facility] under Dr. dyer Time Spent With Patient Time: 90 minutes of critical care time was spent with the patient and speaking to various other providers at tertiary care centers coordinating care Time with patient: Greater than 35 minutes Subjective Date/time seen: 12/27/20 16:38 Interval history: Pt is a 55 y/o female here for otomastoiditis and meningitis. Pt was seen today and has transient confusion. On my first encounter she was confused and didn't know her name, where she was, or what was going on. On my second encounter she was alert and oriented and was complaining of pain in her left temporal and problems with expressing the right words. She denies neck pain, CP, SOB, vomiting, diarrhea, abdominal pain, numbness/tingling, or focal weakness. She has received both of her COVID vaccines. Review of Systems Review of Systems: All systems reviewed & are unremarkable except as noted in HPI and below Exam Narrative: Exam Narrative: General: Well developed well nourished patient in NAD HEENT: normocephalic, left ear with purlent discharge and erythema Neck: supple Neuro: exam #1 expressive aphasia and only oriented to her name. Unable to follow simple commands such as finger to nose. strength 5/5 in UE and LE. No signs of meningitis. Exam 2-A&0x4. CN 2-12 intact. able to do finger to nose and rapid alternating movements CV:RRR. tele showing brief sinus tach Resp:CTA Abd: Soft, non distended. No pain to palpation. Positive bowel sounds Extremities: No swelling, erythema, or pain to palpation. Objective Data Vital Signs Vital Signs: Vital Signs - 24 hr 12/26/20 17:31 12/26/20 18:10 12/26/20 18:33 Temperature 97.2 F L Pulse Rate 105 H 98 97 Respiratory Rate 20 18 Blood Pressure 159/80 H 143/68 H Pulse Oximetry 98 95 12/26/20 20:00 12/26/20 21:50 12/27/20 00:00 Temperature 97.6 F Pulse Rate 103 H 99 94 Respiratory Rate 16 Blood Pressure 150/76 H Pulse Oximetry 96
[2020-12-27 17:58] LABS: Appearance CSF Clear (Clear); CSF source CSF; Color CSF Colorless (Colorless)
[2020-12-27 18:02] LABS: Lymphocytes CSF 93 % (40-80); Monocytes CSF 2 % (15-45); Neutrophils CSF 5 % (0-6)
[2020-12-27 18:04] LABS: Glucose CSF 153 mg/dL (40-70); Total Protein CSF 69 mg/dL (12-60)
[2020-12-27] MEDS: INSULIN GLARGINE (*BKC) 100 UNITS/ML 10 UNITS SUB-Q (20:12)
[2020-12-27 22:27] LABS: Glucose Point of Care 292 mg/dl (65-105)
[2020-12-28] VITALS (18 sets, daily range): BP systolic 75–169; BP diastolic 31–89; PULSE 88–115; RESP 18–22; TEMP 36.2–37.7; O2SAT 92–99
[2020-12-28] MEDS: HYDROcodone/acetaminophen (*CRX) 5-325 MG TABLET 1 TAB PO ×2 (04:44→10:33)
--- NOTE | 2020-12-28 06:26 | WPDHPUPDATE1 ---
History and Physical Update Update Date/Time: 12/28/20 06:26 History and Physical has been reviewed, including an updated exam of the patient. There are NO changes in the patient's condition. Risks, benefits, and alternatives have been discussed and questions answered. Patient agrees to proceed with procedure.
[2020-12-28 07:12] LABS: Basophils Absolute Auto 0.1 K/mm3 (0.0-0.1); Basophils Percent Auto 0.5 % (0.2-1.2); Eosinophils Percent Auto 0.3 % (0-4.4); Hematocrit 36.1 % (37.0-47.0); Hemoglobin 11.9 g/dL (12.0-15.0); Immature Granulocyte Absolute 0.11 K/mm3 (0.00-0.031); Immature Granulocyte Percent A 1.2 % (0-0.5); Lymphocytes Absolute Auto 3.05 K/mm3 (0.9-3.2); Lymphocytes Percent Auto 31.9 % (18.3-44.2); Mean Corpuscular Volume 84.9 fl (80-100); Monocytes Absolute Auto 0.6 K/mm3 (0.1-0.6); Neutrophils Absolute Auto 5.7 K/mm3 (1.3-6.7); Neutrophils Percent Auto 60.1 % (45.5-73.1); Platelet Count Result 372 k/mm3 (150-375); Red Blood Count 4.25 M/mm3 (4.2-5.4); Red Cell Distribution Width 12.6 % (11.5-14.5); White Blood Count 9.6 K/mm3 (4.5-10.0)
[2020-12-28 07:40] LABS: Vancomycin Trough 12.3 ug/mL (10.0-20.0)
[2020-12-28 08:13] LABS: Alanine Aminotransferase 28 U/L (4-35); Albumin Level 3.6 g/dL (3.5-5.1); Alkaline Phosphatase 121 U/L (38-126); Anion Gap 9 mmol/L (8-16); Aspartate Amino Transferase 34 U/L (14-36); Bilirubin,Total 0.5 mg/dL (0.2-1.3); Blood Urea Nitrogen 12 mg/dL (7-17); CRP 0.5 mg/dL (<1.0); Calcium 8.5 mg/dL (8.4-10.2); Carbon Dioxide 25 mmol/L (22-30); Chloride 94 mmol/L (98-107); Estimated CRCL calculation 94 ml/min; Estimated Glomerular Filt Rate > 60; Glucose 299 mg/dL (65-105); Magnesium 1.4 mg/dL (1.6-2.3); Potassium 3.9 mmol/L (3.4-5.0); Sodium 128 mmol/L (137-145)
[2020-12-28] MEDS: MAGNESIUM SULF 2 GM/WATER 50ML 2 GM/50 ML BAG IVPB (08:35)
[2020-12-28 09:14] LABS: Glucose Point of Care 305 mg/dl (65-105)
[2020-12-28] MEDS: INSULIN ASPART (*BKC) 100 UNITS/ML SUB-Q ×3 (09:15→18:47)
[2020-12-28] MEDS: LACTATED RINGERS 1,000 ML 30 ML IV CONT ×2 (09:35→14:50)
--- NOTE | 2020-12-28 10:20 | SUR.PREOP ---
1015- Patient's procedure cancelled per Dr. Syed due to pending transfer to [facility] for higher level of care. Patient transferred from pre-op room 11 back to room 245 via bed with monitoring of telemetry and pulse ox. 1020- Floor RN Reba notified of cancelling of procedure and given report at bedside.
[2020-12-28 10:24] LABS: Beta HCG Quantitative < 2.39 mIU/ML
--- NOTE | 2020-12-28 11:16 | WPDNEURCNPN ---
Assessment and Plan Additional Plan left mastoiditis with negative MRI of the brain his spinal fluid studies are negative except the cultures are pending depending on the results will be treated accordingly at this stage will obtain only the EEG and further intervention as per the ENT physician Consult date: 12/28/20 Time Seen: 11:00 HPI: Zeenat Story is a 55 year old female 55 years old right-handed female admitted to the [facility] for planned surgical procedure that is left tube myringotomy in addition to the history of 1. Renal stones 2. Type 2 diabetes mellitus 3. Bilateral carpal tunnel releases 4. Cholecystectomy 5. Hernia repair 6. patient carries the full code status. neuro consultation has been obtained for the possibility of the meningitis because of the temporal meningeal enhancement on MRI patient has been except to [facility] under Dr. pro [place] and spinal tap has been ordered. Evaluation up until now includes the CBC which revealed no leukocytosis wbc's count is 9.6 with hemoglob 11.9 and platelet count 372 but sed rate of 64, his spinal fluid with few WBCs no organism epithelial cells were noted blood cultures negative CSF cytology negative for acute inflammation and malignant cells lymphocytes and monocytes with probable secondary to chronic inflammation initial CT scan negative, CTA with no aneurysm or significant intracranial arterial stenosis except left or to mastoid effusion normal brain structure MRI of the brain with no intracranial hemorrhage, acute infection or mass, ventricles normal in size and there is left auto mastoid effusion with extensive enhancement CT of the internal auditory canal and mastoids bilaterally with contrast documented opacification of the majority of the left tympanic cavity and the left mastoid air cells with dehiscence of the tag men tumpaniandtegmen mastoidem consistent with mastoiditis and chest x-ray consistent with cardiomegaly Review of Systems Review of Systems: All systems reviewed & are unremarkable except as noted in HPI and below PMFSH Past Medical History Medical History Kidney stones Morbid obesity with BMI of 40.0-44.9, adult Type 2 diabetes mellitus Surgical History Surgical History History of bilateral carpal tunnel release History of section History of cholecystectomy History of hernia repair Family History Family History Other Diabetes mellitus Hypertension Social History Social History Social History: Lives in [place]. Works for the [employer] in [place]. Former smoker quit in 2012. No alcohol or illicit substance abuse. Her Alexis is her surrogate decision maker. Code status: Full code. Meds Home Medications and Allergies Home Medications Medication Instructions Recorded Confirmed Type cephalexin 12/26/20 History ciprofloxacin-dexamethasone drp 12/26/20 History [Ciprodex] gabapentin 12/26/20 History glipizide mg PO 12/26/20 History metformin mg 12/26/20 History Allergies Allergy/AdvReac Type Severity Reaction Status Date / Time Penicillins Allergy Unknown Nausea Verified 12/26/20 18:08 Vital Signs Vital Signs - 24 hr 12/27/20 12:00 12/27/20 14:00 12/27/20 16:00 Temperature 36.5 C Pulse Rate 105 H 97 130 H Respiratory Rate 16 Blood Pressure 155/89 H Pulse Oximetry 97 12/27/20 17:42 12/27/20 17:44 12/27/20 20:00 Temperature Pulse Rate 107 H 107 H 118 H Respiratory Rate 20 20 Blood Pressure 172/97 H 171/88 H Pulse Oximetry 93 92 12/27/20 22:00 12/28/20 00:00 12/28/20 04:00 Temperature 36.2 C L Pulse Rate 90 98 88 Respiratory Rate 18 Blood Pressure 135/48 L Pulse Oximetry 96 12/28/20 06:00 Temperature 36.4 C L Pulse Rate 94 Respiratory Rate 20 Blood
[2020-12-28 11:31] LABS: Nucleated Cell CSF 20 /uL (0-5); Red Blood Cell CSF 20 (0-2)
[2020-12-28 12:00] LABS: Glucose Point of Care 271 mg/dl (65-105)
--- NOTE | 2020-12-28 12:04 | PM.IMPN ---
Progress Note: A&P Assessment and Plan (1) Meningitis: Code(s): G03.9 - Meningitis, unspecified Status: Acute Assessment and Plan: MRI showing signs of meningitis -Pt has improved overnight but not back to her baseline -Continue cefepime and vanc and acyclovir added today due to elevated lymph presence in the LP -LP gram stain showing WBC but no organisms. Await cultures -spoke with neurology, no further recommendations for now -Spoke with [facility] and [facility] 12/27/20. Pt accepted to [facility] under Dr. Teresa and I spoke to the hospitalist, ENT, and neurology. No new orders -Listeria seems less likely in the setting of otomasoiditis with temporal meningitis on the same side. (2) Altered mental status: Qualifiers: Altered mental status type: unspecified Qualified Code(s): R41.82 - Altered mental status, unspecified Code(s): R41.82 - Altered mental status, unspecified Status: Acute Assessment and Plan: 2/2 to above -improving (3) Mastoiditis of left side: Code(s): H70.92 - Unspecified mastoiditis, left ear Status: Acute Assessment and Plan: Continue cefepime and vanc -plan for procedure 12/28/20 -spoke with Dr. Crow 12/28/20 (4) Type 2 diabetes mellitus with hyperglycemia: Code(s): E11.65 - Type 2 diabetes mellitus with hyperglycemia Status: Acute Assessment and Plan: Last glucose 271 -Continue SSI, meal time insulin and Lantus (increased 12/28/20) (5) Hypomagnesemia: Code(s): E83.42 - Hypomagnesemia Status: Acute Assessment and Plan: replaced again today (6) Elevated blood pressure reading: Code(s): R03.0 - Elevated blood-pressure reading, without diagnosis of hypertension Status: Acute Assessment and Plan: bp 161/83 -Monitor closely, not on any medications at home. Could be high due to pain (7) Middle ear infection: Code(s): H66.90 - Otitis media, unspecified, unspecified ear Status: Acute Assessment and Plan: as above (8) Cardiomegaly: Code(s): I51.7 - Cardiomegaly Status: Acute Assessment and Plan: Noted on CXR -no signs of heart failure at this time -would recommend outpt evaluation once pt acute illness has resolved. If she shows any signs of HF will do an echo Additional Plan correct sodium for hyperglycemia 133 patient being transferred to [facility] under Dr. teresa, awaiting medicine bed Subjective Date/time seen: 12/28/20 12:04 Interval history: Pt is a 55 y/o female here for otomastoiditis and meningitis. Pt was seen today with sister at bedside. Pt states she feels okay. She is having pain in her temporal region. She has had no hearing loss. She still feels 'different and confused'. Sister at bedside states she still has slow responses and isn't at her baseline. She has been NPO for her procedure today which was moved to 430. She denies nausea, vomiting, fevers, cp, sob, diarrhea or constipation. Exam Narrative: Exam Narrative: General: Well developed well nourished patient in NAD HEENT: normocephalic, left ear with purlent discharge and erythema in the canal Neck: supple Neuro: Alert and oriented x 4. CN 2-12 intact. slow to respond but no dysarthria noted today. follows all commands CV:RRR. tele showing brief sinus tach this morning Resp:CTA Abd: Soft, non distended. No pain to palpation. Positive bowel sounds Extremities: No swelling, erythema, or pain to palpation. Objective Data Vital Signs Vital Signs: Vital Signs - 24 hr 12/27/20 14:00 12/27/20 16:00 12/27/20 17:42 Temperature 97.7 F Pulse Rate 97 130 H 107 H Respiratory Rate 16 20 Blood Pressure 155/89 H 172/97 H Pulse Oximetry 97 93 12/27/20 17:44 12/27/20 20:00 12/27/20 22:00 Temperature 97.1 F L Pulse Rate 107 H 118 H 90 Respiratory Rate 20 18 Blood Pressure 171/88 H 135/48 L Pulse Oximetry 92 96 12/28/20 0
--- NOTE | 2020-12-28 14:42 | PC.NURSE ---
Patient to OR per bed.
--- NOTE | 2020-12-28 15:40 | SUR.PREOP ---
1540- Notified Dr. Wade patient's BG 319. Obtained orders for 6 units Regular insulin IVP.
[2020-12-28] MEDS: INSULIN HUMAN REGULAR (*BKC) 100 UNITS/ML 6 UNITS IV PUSH (15:44)
--- NOTE | 2020-12-28 16:04 | WPDHPUPDATE1 ---
History and Physical Update Update Date/Time: 12/28/20 16:04 History and Physical has been reviewed, including an updated exam of the patient. There are NO changes in the patient's condition. Risks, benefits, and alternatives have been discussed and questions answered. Patient agrees to proceed with procedure.
--- NOTE | 2020-12-28 16:35 | P.OP_ITS ---
Procedure Note - Detailed Date of Procedure 12/28/20 Pre-op Diagnosis mastoiditis/ams/otitis media Post-op Diagnosis same Procedure Performed 1. Left-sided myringotomy with tube insertion Surgeon Santino Crow MD Anesthesia general Indications left-sided mastoiditis otitis media temporal lobe meningitis Findings erythematous EAC superiorly with soft tissue lesion could represent true mastoiditis a rotating posterior superior canal wall erythematous TM mucoid p urulence within the middle ear cultured tube placement Description of Procedure the patient was correctly identified and consent was verified in the p reoperative holding area. The patient was then brought to the operating room and a time-out was performed. General anesthesia induced and LMA was secured the patient's airway. [place] microscope was brought in the field on the left EAC was examined with the aforementioned findings noted. Inferior incision was made and a suction Asperger was utilized to capture the mucoid purulence which was sent for culture. Collar button tube inserted and confirmed oFloxin drops placed. I performed all dictated portions blood loss 0 patient tolerated the procedure well Urine Output 300 Drains No Packing No Pathology none sent Complications No immediate complications Condition stable Disposition PACU
--- NOTE | 2020-12-28 17:02 | SUR.PHASEI ---
Dr. Serrano aware of 312 BG. Does not want to treat at this time.
--- NOTE | 2020-12-28 17:06 | SUR.PHASEI ---
Simple mask removed at 1705.
[2020-12-28 17:13] LABS: Glucose Point of Care 319 mg/dl (65-105)
[2020-12-28 17:13] LABS: Glucose Point of Care 312 mg/dl (65-105)
--- NOTE | 2020-12-28 17:35 | SUR.PHASEI ---
Lakshmi BARRAGAN, treated initial BP in recovery. The next BP after the medication was 80s/50s.
[2020-12-28 18:43] LABS: Glucose Point of Care 308 mg/dl (65-105)
--- NOTE | 2020-12-28 19:54 | WPDCN ---
Assessment and Plan Additional Plan 1. change in mental status associated with recent possible otitis media / with tympanic membrane small tear. Bacterial meningitis in the differential diagnosis. Lumbar puncture is not consistent with bacterial meningitis. WBC count was 20 with lymphocytic predominance. Glucose was elevated as well as protein. This is more consistent with aseptic meningitis. Patient is being empirically treated on cefepime, vancomycin and acyclovir day 2. CSF cultures are pending. HSV PCR is also pending. Continue current care. monitor renal function closely on vancomycin and acyclovir. Follow up on CSF as well as blood cultures. 2. Type 2 diabetes 19 tighter glycemic control. 3. Obesity 4. Date of service 12/28/2020 HPI Data of Consult Date/Time: 12/28/20 19:54 Requesting Physician: Rima Batres PA-C Primary Care Provider: [facility] Consult Narrative Narrative: Zeenat Story is a 55 year old female with significant past medical history for type 2 diabetes presented to the emergency room with change in mental status and left-sided headache. Apparently a days prior to admission she has had the pain to the left ear and was initially prescribed oral antibiotics at another emergency room. Patient was subsequently seen by an ENT physician who placed her on Ciprodex ear drops. Patient's pain progressed subsequently developing confusion with low-grade fever. Patient was subsequently seen at [facility] and admitted. An MRI of the brain showed temporal lobe enhancement. Subsequently neurology was consulted and a lumbar puncture was done. Fluid analysis was consistent more with aseptic meningitis. Patient has been empirically started on acyclovir, cefepime and vancomycin. Currently no nuchal rigidity or photophobia. Slightly confused during examination. As per nurses mental status has fluctuated on and off. Currently not complaining of severe pain. His left ear packing in place. No nausea or vomiting. CSF cultures are so far negative. CSF HSV PCR is pending Review of Systems Review of Systems: Narrative: patient is confused therefore difficult to obtain for review of system. [facility] Past Medical History Medical History Kidney stones Morbid obesity with BMI of 40.0-44.9, adult Type 2 diabetes mellitus Surgical History Surgical History History of bilateral carpal tunnel release History of section History of cholecystectomy History of hernia repair Family History Family History Other Diabetes mellitus Hypertension Social History Social History Social History: Lives in [place]. Works for [employer] in [place]. Former smoker quit in 2012. No alcohol or illicit substance abuse. Her Alexis is her surrogate decision maker. Code status: Full code. Meds Home Medications and Allergies Home Medications Medication Instructions Recorded Confirmed Type cephalexin 12/26/20 History ciprofloxacin-dexamethasone drp 12/26/20 History [Ciprodex] gabapentin 12/26/20 History glipizide mg PO 12/26/20 History metformin mg 12/26/20 History Allergies Allergy/AdvReac Type Severity Reaction Status Date / Time Penicillins Allergy Unknown Nausea Verified 12/26/20 18:08 Vital Signs Vital Signs - 24 hr 12/27/20 20:00 12/27/20 22:00 12/28/20 00:00 Temperature 36.2 C L Pulse Rate 118 H 90 98 Respiratory Rate 18 Blood Pressure 135/48 L Pulse Oximetry 96 12/28/20 04:00 12/28/20 06:00 12/28/20 08:00 Temperature 36.4 C L Pulse Rate 88 94 98 Respiratory Rate 20 Blood Pressure 161/83 H Pulse Oximetry 98 12/28/20 12:00 12/28/20 14:00 12/28/20 14:50 Temperature 36.8 C 37.7 C H Pulse Rate 103 H 95 98 Respiratory Rate
[2020-12-28] MEDS: AMPICILLIN 2 GM/NS 100 ML 2 GM/100 ML BAG IVPB (21:26)
[2020-12-28] MEDS: CIPROFLOXACIN HC OTIC 10 ML 5 DROP LEFT EAR (21:44)
[2020-12-28] MEDS: INSULIN GLARGINE (*BKC) 100 UNITS/ML 15 UNITS SUB-Q (21:52)
[2020-12-28 22:21] LABS: Glucose Point of Care 452 mg/dl (65-105)
[2020-12-28] MEDS: INSULIN ASPART (*BKC) 100 UNITS/ML 8 UNITS SUB-Q (22:22)
--- NOTE | 2020-12-28 22:48 | PC.NURSE ---
Pharmacist Rich confirmed acyclovir and vancomycin are IV compatible and may be run concurrent.
[2020-12-29] VITALS (9 sets, daily range): BP systolic 131–182; BP diastolic 64–108; PULSE 80–115; RESP 18; TEMP 36.5–37.1; O2SAT 95–99
[2020-12-29 00:42] LABS: Glucose Point of Care 385 mg/dl (65-105)
[2020-12-29] MEDS: INSULIN ASPART (*BKC) 100 UNITS/ML 12 UNITS SUB-Q (01:05)
--- NOTE | 2020-12-29 03:05 | PC.NURSE ---
pt demonstrates verbal and written aphasia when experiencing intermittent confusion.
[2020-12-29] MEDS: AMPICILLIN 2 GM/NS 100 ML 2 GM/100 ML BAG IVPB ×3 (05:58→17:14)
[2020-12-29 06:13] LABS: Basophils Percent Auto 0.4 % (0.2-1.2); Eosinophils Percent Auto 0.2 % (0-4.4); Hematocrit 36.6 % (37.0-47.0); Immature Granulocyte Absolute 0.08 K/mm3 (0.00-0.031); Immature Granulocyte Percent A 0.8 % (0-0.5); Lymphocytes Absolute Auto 2.08 K/mm3 (0.9-3.2); Lymphocytes Percent Auto 20.7 % (18.3-44.2); Mean Corpuscular HGB Conc 32.8 g/dl (32-36); Mean Corpuscular Hemoglobin 28.2 pg (26-34); Mean Corpuscular Volume 85.9 fl (80-100); Mean Platelet Volume 9.1 fl (7.4-10.4); Monocytes Absolute Auto 0.9 K/mm3 (0.1-0.6); Monocytes Percent Auto 8.9 % (2.6-8.5); Neutrophils Absolute Auto 6.9 K/mm3 (1.3-6.7); Platelet Count Result 379 k/mm3 (150-375); Red Blood Count 4.26 M/mm3 (4.2-5.4); Red Cell Distribution Width 12.8 % (11.5-14.5); White Blood Count 10.1 K/mm3 (4.5-10.0)
[2020-12-29 06:21] LABS: Alanine Aminotransferase 23 U/L (4-35); Albumin Level 3.5 g/dL (3.5-5.1); Alkaline Phosphatase 111 U/L (38-126); Anion Gap 6 mmol/L (8-16); Aspartate Amino Transferase 31 U/L (14-36); Bilirubin,Total 0.4 mg/dL (0.2-1.3); Blood Urea Nitrogen 16 mg/dL (7-17); Calcium 8.4 mg/dL (8.4-10.2); Carbon Dioxide 28 mmol/L (22-30); Chloride 98 mmol/L (98-107); Estimated CRCL calculation 75 ml/min; Estimated Glomerular Filt Rate > 60; Glucose 281 mg/dL (65-105); Magnesium 1.8 mg/dL (1.6-2.3); Potassium 3.8 mmol/L (3.4-5.0); Sodium 132 mmol/L (137-145)
[2020-12-29 07:52] LABS: Glucose Point of Care 344 mg/dl (65-105)
[2020-12-29] MEDS: INSULIN ASPART (*BKC) 100 UNITS/ML 8 UNITS SUB-Q ×3 (08:07→17:20)
[2020-12-29] MEDS: INSULIN ASPART (*BKC) 100 UNITS/ML SUB-Q ×3 (08:08→17:19)
[2020-12-29] MEDS: CIPROFLOXACIN HC OTIC 10 ML 5 DROP LEFT EAR ×2 (08:39→20:07)
--- NOTE | 2020-12-29 09:56 | PM.IMPN ---
Progress Note: A&P Assessment and Plan (1) Meningitis: Code(s): G03.9 - Meningitis, unspecified Status: Acute Assessment and Plan: MRI showing signs of meningitis -Pt has improved overnight but not back to her baseline -Continue cefepime and vanc and acyclovir due to elevated lymph presence in the LP -LP gram stain showing WBC but no organisms. Await cultures -spoke with neurology, no further recommendations for now -Spoke with [facility] and [facility] 12/27/20. [facility] accepted to [facility] under Dr. Teresa and I spoke to the hospitalist, ENT, and neurology. No new orders -Listeria seems less likely in the setting of otomasoiditis with temporal meningitis on the same side. (2) Altered mental status: Qualifiers: Altered mental status type: unspecified Qualified Code(s): R41.82 - Altered mental status, unspecified Code(s): R41.82 - Altered mental status, unspecified Status: Acute Assessment and Plan: 2/2 to above -improving (3) Mastoiditis of left side: Code(s): H70.92 - Unspecified mastoiditis, left ear Status: Acute Assessment and Plan: Continue cefepime and vanc -left-sided myringotomy with tube insertion 12/28/[address] Crow (4) Type 2 diabetes mellitus with hyperglycemia: Code(s): E11.65 - Type 2 diabetes mellitus with hyperglycemia Status: Acute Assessment and Plan: Last glucose 344 -Pt continues to be uncontrolled. Will increase mealtime scheduled insulin to 8U and continue SSI. Increase lantus to 20u -diabetic diet -A1c 10.8 (5) Hypomagnesemia: Code(s): E83.42 - Hypomagnesemia Status: Acute Assessment and Plan: Resolved (6) Elevated blood pressure reading: Code(s): R03.0 - Elevated blood-pressure reading, without diagnosis of hypertension Status: Acute Assessment and Plan: bp 131/64 -Monitor closely, not on any medications at home. Could be high due to pain (7) Middle ear infection: Code(s): H66.90 - Otitis media, unspecified, unspecified ear Status: Acute Assessment and Plan: as above (8) Cardiomegaly: Code(s): I51.7 - Cardiomegaly Status: Acute Assessment and Plan: Noted on CXR -no signs of heart failure at this time -would recommend outpt evaluation once pt acute illness has resolved. If she shows any signs of HF will do an echo Additional Plan correct sodium for hyperglycemia 136 patient being transferred to [facility] under Dr. teresa, awaiting medicine bed Subjective Date/time seen: 12/29/20 09:56 Interval history: Pt is a 55 y/o female here for otomastoiditis and meningitis. Pt was seen today and states her confusion is better but she is still having problems with word finding and dysphasia. She is having pain in her temporal region currently 3/10(improved). She has had no hearing loss. Sister at bedside states she still has slow responses and isn't at her baseline. She had some nausea this morning and diarrhea today. No CP or SOB. Exam Narrative: Exam Narrative: General: Well developed well nourished patient in NAD HEENT: normocephalic, left ear with tube in place Neck: supple Neuro: Alert and oriented x 4. CN 2-12 intact. slow to respond with dysphasia noted today. follows all commands CV:RRR. sinus tachycardia noted on tele 110 (while dry heaving). no other reviews Resp:CTA Abd: Soft, non distended. No pain to palpation. Positive bowel sounds Extremities: No swelling, erythema, or pain to palpation. Objective Data Vital Signs Vital Signs: Vital Signs - 24 hr 12/28/20 12:00 12/28/20 14:00 12/28/20 14:50 Temperature 98.2 F 99.9 F H Pulse Rate 103 H 95 98 Respiratory Rate 18 18 Blood Pressure 152/86 H 169/80 H Pulse Oximetry 95 96 12/28/20 16:32 12/28/20 16:45 12/28/20 17:00 Temperature 97.1 F L Pulse Rate 98 97 96 Respiratory Rate 20 22 H 20 Blood Pressure 75/31 L 98/43 L 122/76 P
[2020-12-29] MEDS: ONDANSETRON INJ 4 MG/2 ML VIAL IV PUSH (09:57)
[2020-12-29 12:29] LABS: Glucose Point of Care 347 mg/dl (65-105)
[2020-12-29 16:52] LABS: Glucose Point of Care 323 mg/dl (65-105)
[2020-12-29] MEDS: INSULIN GLARGINE (*BKC) 100 UNITS/ML 20 UNITS SUB-Q (20:10)
[2020-12-30] VITALS (9 sets, daily range): BP systolic 163–174; BP diastolic 72–81; PULSE 92–122; RESP 18; TEMP 36.7–37.1; O2SAT 92–100
[2020-12-30] MEDS: AMPICILLIN 2 GM/NS 100 ML 2 GM/100 ML BAG IVPB ×4 (01:09→16:43)
[2020-12-30 02:01] LABS: Glucose Point of Care 329 mg/dl (65-105)
[2020-12-30] MEDS: HYDROcodone/acetaminophen (*CRX) 5-325 MG TABLET 1 TAB PO (05:37)
[2020-12-30 05:42] LABS: Basophils Percent Auto 0.4 % (0.2-1.2); Eosinophils Percent Auto 0.4 % (0-4.4); Hematocrit 35.1 % (37.0-47.0); Hemoglobin 11.8 g/dL (12.0-15.0); Immature Granulocyte Absolute 0.08 K/mm3 (0.00-0.031); Immature Granulocyte Percent A 0.9 % (0-0.5); Lymphocytes Absolute Auto 2.31 K/mm3 (0.9-3.2); Lymphocytes Percent Auto 25.6 % (18.3-44.2); Mean Corpuscular HGB Conc 33.6 g/dl (32-36); Mean Corpuscular Hemoglobin 28.2 pg (26-34); Mean Platelet Volume 8.9 fl (7.4-10.4); Monocytes Absolute Auto 0.6 K/mm3 (0.1-0.6); Monocytes Percent Auto 6.6 % (2.6-8.5); Neutrophils Percent Auto 66.1 % (45.5-73.1); Platelet Count Result 364 k/mm3 (150-375); Red Blood Count 4.18 M/mm3 (4.2-5.4); Red Cell Distribution Width 12.7 % (11.5-14.5)
[2020-12-30 06:01] LABS: Anion Gap 8 mmol/L (8-16); Blood Urea Nitrogen 12 mg/dL (7-17); Calcium 8.3 mg/dL (8.4-10.2); Carbon Dioxide 27 mmol/L (22-30); Chloride 97 mmol/L (98-107); Estimated CRCL calculation 95 ml/min; Estimated Glomerular Filt Rate > 60; Glucose 300 mg/dL (65-105); Magnesium 1.5 mg/dL (1.6-2.3); Potassium 3.8 mmol/L (3.4-5.0); Sodium 132 mmol/L (137-145)
[2020-12-30] MEDS: MAGNESIUM SULF 4 GM/WATER100ML 4 GM/100 ML BAG IVPB (08:15)
[2020-12-30] MEDS: INSULIN ASPART (*BKC) 100 UNITS/ML 12 UNITS SUB-Q ×3 (08:22→16:41)
[2020-12-30] MEDS: INSULIN ASPART (*BKC) 100 UNITS/ML 8 UNITS SUB-Q (08:30)
--- NOTE | 2020-12-30 09:46 | PM.IMPN ---
Progress Note: A&P Assessment and Plan (1) Meningitis: Code(s): G03.9 - Meningitis, unspecified Status: Acute Assessment and Plan: MRI showing signs of meningitis -Pt seems to still have signs of confusion with what seems to be some aphasia -Continue cefepime and vanc and acyclovir due to elevated lymph presence in the LP -LP gram stain showing WBC but no organisms. -Cultures finalized with no organisms seen -spoke with neurology, no further recommendations for now -Spoke with [facility] and [facility] 12/27/20. [facility] to [facility] under [facility] Teresa and I spoke to the hospitalist, ENT, and neurology. No new orders -Listeria seems less likely in the setting of otomasoiditis with temporal meningitis on the same side. (2) Altered mental status: Qualifiers: Altered mental status type: unspecified Qualified Code(s): R41.82 - Altered mental status, unspecified Code(s): R41.82 - Altered mental status, unspecified Status: Acute Assessment and Plan: 2/2 to above -stable at this time (3) Mastoiditis of left side: Code(s): H70.92 - Unspecified mastoiditis, left ear Status: Acute Assessment and Plan: Continue cefepime and vanc -left-sided myringotomy with tube insertion 12/28/[address] Crow (4) Type 2 diabetes mellitus with hyperglycemia: Code(s): E11.65 - Type 2 diabetes mellitus with hyperglycemia Status: Acute Assessment and Plan: Last glucose 448 according to POC -Pt continues to be uncontrolled. Will increase mealtime scheduled insulin to 12U and continue SSI. Increase lantus to 20u -one time dose of 20units given at breakfast -diabetic diet -A1c 10.8 (5) Hypomagnesemia: Code(s): E83.42 - Hypomagnesemia Status: Acute Assessment and Plan: Mag today is 1.5 replace with 4 gram Trend labs Labs in the am (6) Elevated blood pressure reading: Code(s): R03.0 - Elevated blood-pressure reading, without diagnosis of hypertension Status: Acute Assessment and Plan: bp 163/80 -Monitor closely, not on any medications at home. Could be high due to pain (7) Middle ear infection: Code(s): H66.90 - Otitis media, unspecified, unspecified ear Status: Acute Assessment and Plan: as above (8) Cardiomegaly: Code(s): I51.7 - Cardiomegaly Status: Acute Assessment and Plan: Noted on CXR -no signs of heart failure at this time -would recommend outpt evaluation once pt acute illness has resolved. If she shows any signs of HF will do an echo Additional Plan correct sodium for hyperglycemia 136 patient being transferred to [facility] under [facility]. teresa, awaiting medicine bed Time Spent With Patient Time with patient: 25 - 35 minutes Subjective Date/time seen: 12/30/20 09:46 Interval history: Pt is a 55 y/o female here for otomastoiditis and meningitis. Patient still has a little bit confusion today she can answer some questions however she will tell you things that are a little obscure or bizarre. She also states that she has a very muffled hearing in the left ear with the abscesses. She also seems like she has global aphasia. It looks a she is trying to think about which are saying however when she responds it is a response that has nothing to do with what you asked. she also states that she has pain in her left temporal area and that she rates a 4-5 that his pressure. She also described as maybe feeling congested and is not opening up. I did ask if she was have any chest pain or shortness of breath and she does said she was Sorry and that she wants to get better. I told her that he completely understood and that we would work our way to that goal. Patient still on [facility] to [facility] to [facility]. review of systems was not able to be obtained due to patient's mental status. Review of Systems Review of Systems: All systems reviewed & are unremarkable except as no
[2020-12-30 09:55] LABS: Glucose Point of Care 448 mg/dl (65-105)
[2020-12-30] MEDS: CIPROFLOXACIN HC OTIC 10 ML 5 DROP LEFT EAR ×2 (10:12→21:03)
[2020-12-30] MEDS: LIDOCAINE HCL 1% PF INJ 5 ML VIAL INFILTRATE (10:15)
[2020-12-30 10:54] LABS: NT Pro B Type Natriuretic Pept 314 pg/mL (5-100)
[2020-12-30 12:09] LABS: Glucose Point of Care 257 mg/dl (65-105)
[2020-12-30] MEDS: INSULIN ASPART (*BKC) 100 UNITS/ML SUB-Q ×2 (12:18→16:41)
[2020-12-30] MEDS: CENTRAL LINE FLUSH 10 ML IV PUSH ×2 (14:03→23:29)
--- NOTE | 2020-12-30 15:19 | PM.PNGS ---
Progress Note: A&P Assessment and Plan (1) Meningitis: Code(s): G03.9 - Meningitis, unspecified Status: Acute Assessment and Plan: No otorrhea seen on exam today. Tube in place. Recommend aggressive blood sugar control and continued meningitis treatment. (2) Middle ear infection: Code(s): H66.90 - Otitis media, unspecified, unspecified ear Status: Acute Subjective Subjective Date/Time Seen: 12/30/20 15:19 Objective Data Vital Signs Vital Signs: Vital Signs - 24 hr 12/29/20 16:00 12/29/20 20:00 12/29/20 22:00 Temperature 36.5 C Pulse Rate 115 H 98 80 Respiratory Rate 18 Blood Pressure 139/65 Pulse Oximetry 97 12/30/20 04:00 12/30/20 05:58 12/30/20 08:00 Temperature 36.7 C Pulse Rate 95 93 122 H Respiratory Rate 18 Blood Pressure 163/80 H Pulse Oximetry 95 12/30/20 10:02 12/30/20 12:00 Temperature Pulse Rate 100 Respiratory Rate Blood Pressure Pulse Oximetry 92 Intake/Output Intake/Output: Intake & Output 12/27/20 12/28/20 12/29/20 12/30/20 23:59 23:59 23:59 23:59 Intake Total 2410 2015 6796 8351 Output Total 1050 700 600 850 Balance 1360 1316 4224 1909 Meds/Results Medications: Active Medications Generic Name Dose Route Start Last Admin Trade Name Freq PRN Reason Stop Dose Admin Hydrocodone Bitart/Acetaminophen 1 tab 12/26/20 20:35 12/30/20 05:37 Hydrocodone/Acetaminophen (*Crx) 5-325 Mg Tablet PO 1 tab Q6H PRN Administration Pain Ciprofloxacin/Hydrocortisone 5 drop 12/28/20 21:00 12/30/20 10:12 Ciprofloxacin Hc Otic 10 Ml LEFT EAR 5 drop Q12HR GREG Administration Dextrose 12.5 gm 12/27/20 16:19 Dextrose 50% 25 Gm/50 Ml Syringe IV PUSH PRN PRN Hypoglycemia Protocol Glucagon 1 mg 12/27/20 16:19 Glucagon For Inj 1 Mg Vial IM PRN PRN Hypoglycemia Protocol Glucose 15 gm 12/27/20 16:19 Glucose Oral Gel 15 Gm Of Glucse In 37.5 Gm Tube PO PRN PRN Hypoglycemia Protocol Hydromorphone HCl 0.25 mg 12/27/20 14:05 Hydromorphone Hcl Inj (*Crx) 1 Mg/Ml Syr IV PUSH Q5M PRN Pain Cefepime HCl 2 gm in 50 mls @ 100 mls/hr 12/26/20 22:00 12/30/20 14:13 Maxipime 2 Gm/D5w 50 Ml IVPB Infused Q8H GREG Infusion Vancomycin HCl 1,750 mg/ 500 mls @ 250 mls/hr 12/27/20 20:00 12/30/20 10:28 Sodium Chloride IVPB Infused Q12H GREG Infusion Dextrose 1,000 mls @ 100 mls/hr 12/27/20 16:19 Dextrose 5% 1,000 Ml IVPB PRN PRN Hypoglycemia Protocol Acyclovir Sodium 1,100 mg/ 272 mls @ 272 mls/hr 12/28/20 08:00 12/30/20 14:37 Dextrose IVPB 272 mls/hr Q8HR GREG Administration Ampicillin Sodium 2 gm in 100 mls @ 200 mls/hr 12/28/20 20:25 12/30/20 12:47 Ampicillin 2 Gm/Ns 100 Ml IVPB Infused Q6HR GREG Infusion Insulin Aspart 2 - 5 units 12/27/20 17:00 12/30/20 12:18 Insulin Aspart (*Bkc) 100 Units/Ml SUB-Q 3 units TIDWM GREG Administration Protocol Insulin Aspart 12 units 12/30/20 08:00 12/30/20 12:18 Insulin Aspart (*Bkc) 100 Units/Ml SUB-Q 12 units TIDWM GREG Administration Insulin Glargine 20 units 12/29/20 21:00 12/29/20 20:10 Insulin Glargine (*Bkc) 100 Units/Ml SUB-Q 20 units HS GREG Administration Ondansetron HCl 4 mg 12/27/20 13:52 12/29/20 09:57 Ondansetron Inj 4 Mg/2 Ml Vial IV PUSH 4 mg Q6H PRN Administration Nausea And Vomiting Sodium Chloride 10 ml 12/30/20 14:00 12/30/20 14:03 Central Line Flush IV PUSH 10 ml Q8HR GREG Administration Sodium Chloride 10 ml 12/30/20 11:11 Central Line Flush IV PUSH PRN PRN with TPN bag changes Sodium Chloride 20 ml 12/30/20 11:11 Central Line Flush IV PUSH PRN PRN after blood draws Radiology Results: ITS Impressions Head CT 12/26/20 13:44 IMPRESSION: 1. Normal brain. 2. Left otomastoid effusion. ADDENDUM: 12/27/20 1352 There is left tem
[2020-12-30 16:51] LABS: Glucose Point of Care 280 mg/dl (65-105)
[2020-12-30] MEDS: ONDANSETRON INJ 4 MG/2 ML VIAL IV PUSH (20:42)
[2020-12-30] MEDS: INSULIN GLARGINE (*BKC) 100 UNITS/ML 20 UNITS SUB-Q (21:02)
[2020-12-30 22:14] LABS: Lyme Disease Ab (IgM), Blot Negative (Negative); Lyme Disease Ab(IgG), Blot Negative (Negative)
[2020-12-30 23:08] LABS: Glucose Point of Care 269 mg/dl (65-105)
[2020-12-31] VITALS (14 sets, daily range): BP systolic 138–185; BP diastolic 74–94; PULSE 80–109; RESP 16–28; TEMP 36.7–37.4; O2SAT 94–100
--- NOTE | 2020-12-31 | ECHO_ITS ---
Patient Info Name: Zeenat Story Age: 55 years : 1965 Gender: Female Ht: 62 in Wt: 251 lbs BSA: 2.30 m2 HR: 101 bpm BP: 155 / 85 mmHg Technical Quality: Good Exam Date: 12/31/2020 2:20 PM Exam Location: [facility] Patient Status: Inpatient Admit Date: 12/28/2020 Staff Ordering Physician: Daniel Campbell Chief Of Production: Steve Jordan RDCS, RT Attending Provider: Rima Batres PA-C Referring Physician: Adrian GALINDO; Exam Type: CA echo doppler color flow Study Info Indications I51.9 - Heart disease, unspecified Complete two-dimensional, color flow and Doppler transthoracic echocardiogram is performed. Strain analysis performed. Summary 1. Complete two-dimensional, color flow and Doppler transthoracic echocardiogram is performed. 2. Left ventricular chamber dimension is normal. 3. Left ventricular systolic function is hyperdynamic, estimated at >70%. 4. There is mildly increased left ventricular wall thickness. 5. The left ventricular diastolic function is grade I diastolic dysfunction. 6. E/e' 17 is elevated. 7. Global longitudinal strain is mildly abnormal at -16.1%. Left Ventricle E/e' 17 is elevated. Global longitudinal strain is mildly abnormal at -16.1%. Left ventricular chamber dimension is normal. Left ventricular systolic function is hyperdynamic, estimated at >70%. There is mildly increased left ventricular wall thickness. The left ventricular diastolic function is grade I diastolic dysfunction. Right Ventricle Right ventricular systolic function is normal and with normal TAPSE 2.5 cm. Right ventricular chamber dimension is normal. Left Atria Left atrial chamber dimension is normal. Right Atria Right atrial chamber dimension is normal. Aortic Valve The aortic valve is trileaflet. There is no aortic valve stenosis. There is no aortic valve regurgitation. Pulmonic Valve There is no pulmonic regurgitation. Mitral Valve There is no mitral valve stenosis. There is no mitral valve regurgitation. Tricuspid Valve There is no tricuspid valve regurgitation. Pericardium/Pleural There is no pericardial effusion. Inferior Vena Cava Normal inferior vena cava with >50% collapse upon inspiration consistent with normal right atrial pressure, 5 mmHg. Aorta The aortic root size at the sinus of Valsalva is normal. Left Ventricular Outflow Tract Name Value Normal LVOT 2D LVOT Diameter 2.0 cm LVOT Doppler LVOT Peak Gradient 5 mmHg LVOT Mean Gradient 3 mmHg LVOT VTI 21 cm LVOT VTI/AV VTI Ratio 0.7 LVOT Stroke Volume 68 ml LVOT CO 7.0 l/min LVOT CI 3.0 l/min/m2 Mitral Valve Name Value Normal MV Doppler
[2020-12-31] MEDS: AMPICILLIN 2 GM/NS 100 ML 2 GM/100 ML BAG IVPB ×4 (00:54→17:25)
[2020-12-31 04:46] LABS: Basophils Absolute Auto 0.1 K/mm3 (0.0-0.1); Basophils Percent Auto 0.4 % (0.2-1.2); Eosinophils Absolute Auto 0.1 K/mm3 (0-0.3); Eosinophils Percent Auto 0.5 % (0-4.4); Hematocrit 35.1 % (37.0-47.0); Hemoglobin 11.7 g/dL (12.0-15.0); Immature Granulocyte Absolute 0.09 K/mm3 (0.00-0.031); Immature Granulocyte Percent A 0.8 % (0-0.5); Lymphocytes Absolute Auto 2.58 K/mm3 (0.9-3.2); Lymphocytes Percent Auto 22.6 % (18.3-44.2); Mean Corpuscular HGB Conc 33.3 g/dl (32-36); Mean Corpuscular Hemoglobin 28.5 pg (26-34); Mean Corpuscular Volume 85.6 fl (80-100); Mean Platelet Volume 9.4 fl (7.4-10.4); Monocytes Absolute Auto 0.6 K/mm3 (0.1-0.6); Monocytes Percent Auto 5.6 % (2.6-8.5); Neutrophils Percent Auto 70.1 % (45.5-73.1); Platelet Count Result 356 k/mm3 (150-375); Red Cell Distribution Width 12.9 % (11.5-14.5); White Blood Count 11.4 K/mm3 (4.5-10.0)
[2020-12-31] MEDS: HYDROcodone/acetaminophen (*CRX) 5-325 MG TABLET 1 TAB PO ×2 (05:04→22:26)
[2020-12-31] MEDS: CENTRAL LINE FLUSH 10 ML IV PUSH ×3 (05:10→22:27)
[2020-12-31 05:16] LABS: Alanine Aminotransferase 21 U/L (4-35); Albumin Level 3.5 g/dL (3.5-5.1); Alkaline Phosphatase 97 U/L (38-126); Anion Gap 7 mmol/L (8-16); Aspartate Amino Transferase 33 U/L (14-36); Bilirubin,Total 0.7 mg/dL (0.2-1.3); Blood Urea Nitrogen 9 mg/dL (7-17); Calcium 8.5 mg/dL (8.4-10.2); Carbon Dioxide 30 mmol/L (22-30); Chloride 93 mmol/L (98-107); Estimated CRCL calculation 94 ml/min; Estimated Glomerular Filt Rate > 60; Glucose 249 mg/dL (65-105); Magnesium 1.6 mg/dL (1.6-2.3); Potassium 3.5 mmol/L (3.4-5.0); Sodium 130 mmol/L (137-145)
[2020-12-31 07:32] LABS: Glucose Point of Care 272 mg/dl (65-105)
[2020-12-31 07:38] LABS: NT Pro B Type Natriuretic Pept 358 pg/mL (5-100)
[2020-12-31] MEDS: INSULIN ASPART (*BKC) 100 UNITS/ML SUB-Q (07:53)
[2020-12-31] MEDS: CIPROFLOXACIN HC OTIC 10 ML 5 DROP LEFT EAR ×2 (07:53→20:23)
[2020-12-31] MEDS: INSULIN ASPART (*BKC) 100 UNITS/ML 12 UNITS SUB-Q (07:53)
[2020-12-31] MEDS: ONDANSETRON INJ 4 MG/2 ML VIAL IV PUSH (08:06)
[2020-12-31] MEDS: LORazepam INJ (*CRX) 2 MG/ML VIAL 1 MG IV PUSH (09:15)
[2020-12-31 09:31] LABS: Base Excess ABG -4.8 mEq/l (+/-2.0); Fractional Inspired Oxygen 32 %; HCO3 ABG 20.4 mEq/l (22.0-26.0); Oxyhemoglobin 72.8 % THb (90.0-100.0); PCO2 ABG 38.5 mmHg (35.0-45.0); Total Hemoglobin 13.3 g/dL (12.0-18.0); pH ABG 7.342 (7.350-7.450)
[2020-12-31 09:34] LABS: Oxygen Saturation ABG 69.7 % (95.0-100.0); PO2 ABG 38.3 mmHg (80.0-100.0)
[2020-12-31 09:35] LABS: Device NASAL CANNULA
[2020-12-31 09:41] LABS: Basophils Absolute Auto 0.1 K/mm3 (0.0-0.1); Basophils Percent Auto 0.6 % (0.2-1.2); Eosinophils Absolute Auto 0.1 K/mm3 (0-0.3); Eosinophils Percent Auto 0.7 % (0-4.4); Hematocrit 35.9 % (37.0-47.0); Hemoglobin 11.9 g/dL (12.0-15.0); Immature Granulocyte Absolute 0.06 K/mm3 (0.00-0.031); Immature Granulocyte Percent A 0.5 % (0-0.5); Lymphocytes Absolute Auto 2.84 K/mm3 (0.9-3.2); Lymphocytes Percent Auto 23.7 % (18.3-44.2); Mean Corpuscular HGB Conc 33.1 g/dl (32-36); Mean Corpuscular Hemoglobin 28.1 pg (26-34); Mean Corpuscular Volume 84.9 fl (80-100); Mean Platelet Volume 8.9 fl (7.4-10.4); Monocytes Absolute Auto 0.7 K/mm3 (0.1-0.6); Monocytes Percent Auto 5.4 % (2.6-8.5); Neutrophils Absolute Auto 8.3 K/mm3 (1.3-6.7); Neutrophils Percent Auto 69.1 % (45.5-73.1); Platelet Count Result 383 k/mm3 (150-375); Red Blood Count 4.23 M/mm3 (4.2-5.4); Red Cell Distribution Width 12.9 % (11.5-14.5)
--- NOTE | 2020-12-31 09:44 | WPDCNINT ---
Assessment and Plan Assessment and plan (1) Encephalopathy: Code(s): G93.40 - Encephalopathy, unspecified Status: Acute Assessment and Plan: I suspect is metabolic encephalopathy secondary to her sepsis, meningitis versus seizures versus postictal from a unwitnessed seizure significantly elevated lactate with stable blood pressure suggests the patient may have had a seizure stat head CT has been done and shows no new change check EEG empiric Keppra loading dose Ammonia was normal patient is protecting her airway at this point and does not need advanced airway (2) Meningitis: Code(s): G03.9 - Meningitis, unspecified Status: Acute Assessment and Plan: her CSF was lymphocytic predominant with elevated blood sugar consistent with her hyperglycemia and slightly abnormal protein other CSF studies like her peace West Nile Lyme are pending this is likely aseptic meningitis from her otitis media versus bacterial continue acyclovir, ampicillin, cefepime, and vancomycin antimicrobials are being managed by infectious disease (3) Mastoiditis: Qualifiers: Laterality: left Qualified Code(s): H70.92 - Unspecified mastoiditis, left ear Code(s): H70.90 - Unspecified mastoiditis, unspecified ear Status: Acute Assessment and Plan: status post myringotomy and tube placed ENT is following patient is awaiting transfer to [facility] for ENT/NSGY eval (4) Otitis media, left: Code(s): H66.92 - Otitis media, unspecified, left ear Status: Acute Assessment and Plan: see above (5) Type 2 diabetes mellitus with hyperglycemia: Code(s): E11.65 - Type 2 diabetes mellitus with hyperglycemia Status: Acute Assessment and Plan: start insulin infusion for tighter control continue Lantus (6) Lactic acidosis: Code(s): E87.2 - Acidosis Status: Acute Assessment and Plan: sepsis versus secondary to seizures patient already on broad-spectrum antibiotics. Afebrile over last 24 hours and wbc's not significantly increased than yesterday 2 L saline bolus and start IV fluid monitor lactic acid level nurse off a thread suggestive of possible tempon. she was unable to see tempon itself. patient is morbidly obese. Trigonometry Teacher was called and they will come and examine patient with a speculum Additional Plan DVT prophylaxis - start Lovenox Nutrition - NPO at this Code Status - Full Code patient's son at bedside who was updated. also spoke to [facility] ICU. Patient was awaiting transfer to [facility] but since she has had a status change, she would need to go to a ICU bed. I spoke to critical care fellow Dr. Kelley and updated him with patient's status. Dr. Valdez will be the accepting physician now Total Critical Care Time - 50 minutes Due to a high probability of clinically significant, life threatening deterioration, the patient required my highest level of preparedness to intervene emergently and I personally spent this critical care time directly and personally managing the patient. This critical care time included obtaining a history; examining the patient; pulse oximetry; ordering and review of studies; arranging urgent treatment with development of a management plan; evaluation of patient's response to treatment; frequent reassessment; and discussions with other providers. It was exclusive of separately billable procedures and treating other patients and teaching time. Please see Assessment and Plan section and the rest of the note for further information on patient assessment and treatment [facility] Consult Note Consult date: 12/31/20 Time Seen: 09:45 HPI: Zeenat Story is a 55 year old female with past medical history of type 2 diabetes mellitus who was admitted 12/26 with chief complaint of altered mental status and left-sided headache. Prior t
[2020-12-31 09:45] LABS: Glucose Point of Care 328 mg/dl (65-105)
--- NOTE | 2020-12-31 09:46 | PM.IMPN ---
Progress Note: A&P Assessment and Plan (1) Meningitis: Code(s): G03.9 - Meningitis, unspecified Status: Acute Assessment and Plan: MRI showing signs of meningitis -Pt seems to still have signs of confusion with what seems to be some aphasia -Continue cefepime and vanc and acyclovir due to elevated lymph presence in the LP -LP gram stain showing WBC but no organisms. -Cultures finalized with no organisms seen -spoke with neurology, no further recommendations for now -Spoke with [facility] and [facility] 12/27/20. [facility] under [facility] Teresa and I spoke to the hospitalist, ENT, and neurology. No new orders -Listeria seems less likely in the setting of otomasoiditis with temporal meningitis on the same side. -Could be related to lodged tampon -Examination did reveal string fragments, patient stated that there was a tampon in her vagina -OB consulted thank you -pelvic exam ordered -patient currently on cefepime 2 g q.8, vancomycin 1750 q.12, acyclovir 1100 mg q.8, ampicillin 2 g q.6 (2) Altered mental status: Qualifiers: Altered mental status type: unspecified Qualified Code(s): R41.82 - Altered mental status, unspecified Code(s): R41.82 - Altered mental status, unspecified Status: Acute Assessment and Plan: 2/2 to above -stable at this time - could be from possible seizures - patient was given 1 mg of Ativan - Keppra has been started, loading dose 1000 mg 1 time, 500 mg b.i.d. (3) Mastoiditis of left side: Code(s): H70.92 - Unspecified mastoiditis, left ear Status: Acute Assessment and Plan: Continue cefepime and vanc -left-sided myringotomy with tube insertion 12/28/[address] Crow (4) Type 2 diabetes mellitus with hyperglycemia: Code(s): E11.65 - Type 2 diabetes mellitus with hyperglycemia Status: Acute Assessment and Plan: Last glucose 328 according to POC -Pt continues to be uncontrolled. Increase lantus to 20u - patient on insulin drip in the ICU -sliding scale -one time dose of 20units given at breakfast -diabetic diet -A1c 10.8 (5) Hypomagnesemia: Code(s): E83.42 - Hypomagnesemia Status: Acute Assessment and Plan: Mag today is 1.6, the 1.5 on repeat replace with 4 gram Trend labs Labs in the am (6) Elevated blood pressure reading: Code(s): R03.0 - Elevated blood-pressure reading, without diagnosis of hypertension Status: Acute Assessment and Plan: bp 155/85 Monitor closely, not on any medications at home. Could be high due to pain (7) Middle ear infection: Code(s): H66.90 - Otitis media, unspecified, unspecified ear Status: Acute Assessment and Plan: as above (8) Cardiomegaly: Code(s): I51.7 - Cardiomegaly Status: Acute Assessment and Plan: Noted on CXR no signs of heart failure at this time would recommend outpt evaluation once pt acute illness has resolved. If she shows any signs of HF will do an echo (9) Hyponatremia: Code(s): E87.1 - Hypo-osmolality and hyponatremia Status: Acute Assessment and Plan: sodium this morning was 130 going to work patient up for fluid overload echo was ordered and pending chest x-ray from 12/28/2020 showed cardiomegaly BNP was 358 (10) Encephalopathy: Code(s): G93.40 - Encephalopathy, unspecified Status: Acute Assessment and Plan: patient had a movement this morning where she became unresponsive, drooling, not following commands loading dose of Keppra 1000 mg IV once, Keppra 500 mg b.i.d. for seizure prophylactic 1 mg of Ativan given once ammonia was less than 9 could be due to possible toxic shock syndrome string fragments found in patient's vagina Ob was consulted thank you pelvic exam was ordered EEG is ordered neurology already on the case will adjust medications as
[2020-12-31 09:53] LABS: Ammonia < 9 umol/L (9-30)
[2020-12-31 09:58] LABS: Lactic Acid Reflex 8.2 mmol/L (0.7-2.1)
[2020-12-31 10:03] LABS: Alanine Aminotransferase 33 U/L (4-35); Albumin Level 3.5 g/dL (3.5-5.1); Alkaline Phosphatase 99 U/L (38-126); Anion Gap 16 mmol/L (8-16); Aspartate Amino Transferase 43 U/L (14-36); Bilirubin,Total 0.4 mg/dL (0.2-1.3); Blood Urea Nitrogen 7 mg/dL (7-17); Calcium 8.1 mg/dL (8.4-10.2); Carbon Dioxide 21 mmol/L (22-30); Chloride 93 mmol/L (98-107); Estimated CRCL calculation 84 ml/min; Estimated Glomerular Filt Rate > 60; Glucose 320 mg/dL (65-105); Magnesium 1.5 mg/dL (1.6-2.3); Potassium 3.1 mmol/L (3.4-5.0); Sodium 130 mmol/L (137-145)
[2020-12-31] MEDS: levETIRAcetam 1000MG/NACL100ML 1,000 MG/100 ML BAG 400 MG IVPB (10:49)
[2020-12-31] MEDS: MAGNESIUM SULF 4 GM/WATER100ML 4 GM/100 ML BAG IVPB (10:49)
[2020-12-31] MEDS: SODIUM CHLORIDE 0.9% IV 1,000 ML 999 ML IV CONT ×2 (10:50)
[2020-12-31] MEDS: KCL 20MEQ/0.9% SOD CHL 1,000 ML 100 ML IV CONT (12:20)
[2020-12-31 12:38] LABS: Reflex Lactic Acid Yes or No Add Lactic
[2020-12-31 12:39] LABS: Glucose Point of Care 245 mg/dl (65-105)
[2020-12-31 12:49] LABS: EDCOVIDSCREEN Negative (Negative)
[2020-12-31 13:53] LABS: Glucose Point of Care 252 mg/dl (65-105)
--- NOTE | 2020-12-31 14:04 | WPDCN ---
Assessment and Plan Assessment and plan (1) Vaginal foreign body: Code(s): T19.2XXA - Foreign body in vulva and vagina, initial encounter Status: Acute Assessment and Plan: this patient is 55-year-old female who was bleed to have retained foreign body in the vagina has a possible etiology for her sepsis and mental status changes. No foreign body was observed. The patient does have a moderate to severe vulvar skin infection that is likely fungal. We agreed to use topical steroid/antifungal. The exam was normal other than a small cervical polyp. This can be dealt with as an outpatient. 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 I was asked to see this patient in consultation. She is in the ICU. there is the possibility of retained tampon. Patient is septic and has acute mental status changes and seizure recently. No gynecologic symptoms were reported. There is no vaginal bleeding. [facility] Past Medical History Medical History Kidney stones Morbid obesity with BMI of 40.0-44.9, adult Type 2 diabetes mellitus Surgical History Surgical History History of bilateral carpal tunnel release History of section History of cholecystectomy History of hernia repair Family History Family History Other Diabetes mellitus Hypertension Social History Social History Social History: Lives in [place]. Works for [employer] in [place]. Former smoker quit in 2012. No alcohol or illicit substance abuse. Her Alexis is her surrogate decision maker. Code status: Full code. Meds Home Medications and Allergies Home Medications Medication Instructions Recorded Confirmed Type cephalexin 12/26/20 History ciprofloxacin-dexamethasone drp 12/26/20 History [Ciprodex] gabapentin 12/26/20 History glipizide 10 mg PO DAILY 12/26/20 12/28/20 History metformin 1,000 mg PO DAILY 12/26/20 12/28/20 History Allergies Allergy/AdvReac Type Severity Reaction Status Date / Time Penicillins Allergy Unknown Nausea Verified 12/26/20 18:08 Vital Signs Vital Signs - 24 hr 12/30/20 16:00 12/30/20 20:00 12/30/20 22:00 Temperature 98.6 F Pulse Rate 104 H 96 92 Respiratory Rate 18 18 Blood Pressure 174/81 H Pulse Oximetry 98 98 12/31/20 00:00 12/31/20 06:00 12/31/20 10:44 Temperature 98.1 F Pulse Rate 97 94 100 Respiratory Rate 18 22 H Blood Pressure 155/85 H Pulse Oximetry 95 96 12/31/20 10:54 12/31/20 12:00 12/31/20 12:09 Temperature 99 F Pulse Rate 109 H 89 86 Respiratory Rate 23 H 21 H Blood Pressure 138/80 Pulse Oximetry 95 95 12/31/20 14:00 Temperature 98.8 F Pulse Rate 105 H Respiratory Rate 16 Blood Pressure 145/74 H Pulse Oximetry 99 Exam : General: Yes bimanual renal exam normal bilaterally External Female Exam: external swelling and other ( There is diffuse erythema over the vulva. The skin is swollen raised.) Speculum Exam - Vagina: normal appearance of the vagina, normal palpation and normal vaginal discharge Speculum Exam - Cervix: normal appearance of the cervix ( Small cervical polyp -benign - at the internal os.) Bimanual exam- vagina & uterus: normal bimanual exam Bimanual Exam- Adnexa, other: normal adnexae Results Labs CBC & Chem 7: 12/31/20 09:34 12/31/20 09:34 Labs: Short CBC 12/31/20 12/31/20 Range/Units 04:33 09:34 WBC 11.4 H 12.0 H (4.5-10.0) K/mm3 Hgb 11.7 L 11.9 L (12.0-15.0) g/dL Hct 35.1 L 35.9 L (37.0-47.0) % Plt Count 356 383 H (150-375) k/mm3 [facility] 12/31/20 12/31/20 04:33 09:34 S
[2020-12-31] MEDS: INSULIN HUMAN REGULAR (*BKC) 100 UNITS in SODIUM CHLORIDE 0.9% IV 99 ML IV CONT (14:13)
[2020-12-31 14:19] LABS: Lactic Acid Reflex 0.9 mmol/L (0.7-2.1)
[2020-12-31 15:16] LABS: Glucose Point of Care 237 mg/dl (65-105)
[2020-12-31 16:20] LABS: Glucose Point of Care 203 mg/dl (65-105)
[2020-12-31 17:29] LABS: Glucose Point of Care 134 mg/dl (65-105)
[2020-12-31 17:46] LABS: Herpes Simplex Type 1 DNA PCR Not Detected (Not Detected); Herpes Simplex Type 2 DNA PCR Not Detected (Not Detected)
[2020-12-31 18:33] LABS: Glucose Point of Care 95 mg/dl (65-105)
[2020-12-31 20:13] LABS: Glucose Point of Care 95 mg/dl (65-105)
[2020-12-31] MEDS: BETAMETHASONE/CLOTRIMAZOLE CR 15 GM TUBE 1 APPLIC TOPICAL (20:19)
--- NOTE | 2020-12-31 20:44 | WPDINFPN2 ---
Progress Note: A&P Additional Plan 1. change in mental status associated with recent possible otitis media / with tympanic membrane small tear. Bacterial meningitis in the differential diagnosis. Lumbar puncture is not consistent with bacterial meningitis. WBC count was 20 with lymphocytic predominance. Glucose was elevated as well as protein. This is more consistent with aseptic meningitis. Patient is being empirically treated on cefepime, vancomycin and acyclovir day 5. ampicillin day 3. Cultures have been so far negative. HSV PCR is also pending. Continue current care. Lyme serology is negative. May start deescalating antibiotics therapy. Stop vancomycin today. 2. Type 2 diabetes 19 tighter glycemic control. 3. Obesity Subjective Date/time seen: 12/31/20 20:44 Exam HENMT: Ears: other ( Left ear packing in place) Face and sinus: other ( no facial swelling) Eyes: General: appearance normal, both eyes and all related structures Neck: Neck: normal visual inspection Resp: Effort & Inspection: normal respiratory effort Auscultation: clear to auscultation bilaterally Cardio: Rate: regular rate Rhythm: regular rhythm Heart sounds: S1 normal heart sound present and S2 normal heart sound present GI: Inspection: normal to inspection Auscultation: normal bowel sounds Neuro: General: other ( no nuchal rigidity or photophobia. Still confused) Speech: dysarthria ( dysarthria) Objective Data Vital Signs Vital Signs: Vital Signs - 24 hr 12/30/20 22:00 12/31/20 00:00 12/31/20 06:00 Temperature 37.0 C 36.7 C Pulse Rate 92 97 94 Respiratory Rate 18 18 Blood Pressure 174/81 H 155/85 H Pulse Oximetry 98 95 12/31/20 10:44 12/31/20 10:54 12/31/20 12:00 Temperature Pulse Rate 100 109 H 89 Respiratory Rate 22 H 23 H Blood Pressure Pulse Oximetry 96 95 12/31/20 12:09 12/31/20 14:00 12/31/20 14:25 Temperature 37.2 C 37.1 C Pulse Rate 86 105 H 98 Respiratory Rate 21 H 16 28 H Blood Pressure 138/80 145/74 H Pulse Oximetry 95 99 97 12/31/20 15:09 12/31/20 16:00 12/31/20 17:59 Temperature 37.4 C Pulse Rate 92 92 89 Respiratory Rate 20 21 H Blood Pressure 147/84 H Pulse Oximetry 94 97 12/31/20 18:00 Temperature Pulse Rate 95 Respiratory Rate 22 H Blood Pressure 172/92 H Pulse Oximetry 98 Intake/Output Intake/Output: Intake & Output 12/28/20 12/29/20 12/30/20 12/31/20 23:59 23:59 23:59 23:59 Intake Total 2015 7675 4311 4316 Output Total 700 067 841 7275 Balance 1316 4224 3461 1066 Meds/Results Medications: Active Medications Generic Name Dose Route Start Last Admin Trade Name Freq PRN Reason Stop Dose Admin Hydrocodone Bitart/Acetaminophen 1 tab 12/26/20 20:35 12/31/20 05:04 Hydrocodone/Acetaminophen (*Crx) 5-325 Mg Tablet PO 1 tab Q6H PRN Administration Pain Ciprofloxacin/Hydrocortisone 5 drop 12/28/20 21:00 12/31/20 20:23 Ciprofloxacin Hc Otic 10 Ml LEFT EAR 5 drop Q12HR GREG Administration Clotrimazole 1 applic 12/31/20 21:00 12/31/20 20:19 Betamethasone/Clotrimazole Cr 15 Gm Tube TOPICAL 1 applic Q12HR GREG Administration Dextrose 12.5 gm 12/31/20 10:01 Dextrose 50% 25 Gm/50 Ml Syringe IV PUSH PRN PRN Hypoglycemia Protocol Glucagon 1 mg 12/31/20 10:01 Glucagon For Inj 1 Mg Vial IM PRN PRN Hypoglycemia Protocol Glucose 15 gm 12/31/20 10:01 Glucose Oral Gel 15 Gm Of Glucse In 37.5 Gm Tube PO PRN PRN Hypoglycemia Protocol Hydromorphone HCl 0.25 mg 12/27/20 14:05 Hydromorphone Hcl Inj (*Crx) 1 Mg/Ml Syr IV PUSH Q5M PRN Pain Cefepime HCl 2 gm in 50 mls @ 100 mls/hr 12/26/20 22:00 12/31/20 15:02 Maxipime 2 Gm/D5w 50 Ml IVPB Infused Q8H GREG Infusion Vancomycin HCl 1,750 mg/ 500 mls @ 250 mls/hr 12/27/20 20:00 12/31/20 20:19 Sodium Chloride IVPB 250 mls/hr Q12H GREG Administration Acyclovir Sodium 1,100 mg/ 272
[2020-12-31 21:20] LABS: Glucose Point of Care 91 mg/dl (65-105)
[2020-12-31] MEDS: levETIRAcetam 500MG/NACL 100ML 500 MG/100 ML BAG 400 MG IVPB (21:39)
[2020-12-31] MEDS: INSULIN GLARGINE (*BKC) 100 UNITS/ML 30 UNITS SUB-Q (21:40)
[2021-01-01] VITALS (12 sets, daily range): BP systolic 141–183; BP diastolic 68–99; PULSE 87–115; RESP 14–26; TEMP 36.6–37.5; O2SAT 92–99
[2021-01-01] MEDS: AMPICILLIN 2 GM/NS 100 ML 2 GM/100 ML BAG IVPB ×4 (00:25→17:47)
[2021-01-01 00:39] LABS: Glucose Point of Care 157 mg/dl (65-105)
[2021-01-01 04:32] LABS: Glucose Point of Care 172 mg/dl (65-105)
[2021-01-01] MEDS: CENTRAL LINE FLUSH 10 ML IV PUSH ×2 (05:36→13:59)
[2021-01-01 07:44] LABS: Hematocrit 35.2 % (37.0-47.0); Hemoglobin 11.4 g/dL (12.0-15.0); Mean Corpuscular HGB Conc 32.4 g/dl (32-36); Mean Corpuscular Hemoglobin 28.1 pg (26-34); Mean Corpuscular Volume 86.9 fl (80-100); Mean Platelet Volume 8.9 fl (7.4-10.4); Platelet Count Result 297 k/mm3 (150-375); Red Blood Count 4.05 M/mm3 (4.2-5.4); Red Cell Distribution Width 13.2 % (11.5-14.5); White Blood Count 9.1 K/mm3 (4.5-10.0)
[2021-01-01 07:53] LABS: Anion Gap 6 mmol/L (8-16); Blood Urea Nitrogen 4 mg/dL (7-17); Calcium 8.3 mg/dL (8.4-10.2); Carbon Dioxide 32 mmol/L (22-30); Chloride 98 mmol/L (98-107); Estimated CRCL calculation 93 ml/min; Estimated Glomerular Filt Rate > 60; Glucose 169 mg/dL (65-110); Magnesium 1.7 mg/dL (1.6-2.3); Potassium 3.4 mmol/L (3.4-5.0); Sodium 136 mmol/L (137-145)
[2021-01-01] MEDS: CIPROFLOXACIN HC OTIC 10 ML 5 DROP LEFT EAR (08:25)
[2021-01-01] MEDS: levETIRAcetam 500MG/NACL 100ML 500 MG/100 ML BAG 400 MG IVPB (08:26)
--- NOTE | 2021-01-01 08:57 | WPDINTPN ---
Progress Note: A&P Assessment and Plan (1) Aphasia: Code(s): R47.01 - Aphasia Status: Acute Assessment and Plan: patient appears to have aphasia without any other focal neurological deficit. This is likely due to temporal area involvement with meningitis and cerebritis as evidenced by her MRI finding. neurology consult (2) Encephalopathy: Code(s): G93.40 - Encephalopathy, unspecified Status: Acute Assessment and Plan: patient likely had metabolic encephalopathy secondary to her meningitis versus seizures versus postictal from a unwitnessed seizure significantly elevated lactate with stable blood pressure suggests the patient may have had a seizure stat head CT has been done and shows no new change EEG was done which was abnormal but did not show any seizure-like activity as per Dr. Dmitry Carver Ammonia was normal (3) Meningitis: Code(s): G03.9 - Meningitis, unspecified Status: Acute Assessment and Plan: her CSF was lymphocytic predominant with elevated blood sugar consistent with her hyperglycemia and slightly abnormal protein other CSF studies like her peace West Nile Lyme are pending this is likely aseptic meningitis from her otitis media versus bacterial continue acyclovir, ampicillin, cefepime. vancomycin has been discontinued antimicrobials are being managed by infectious disease (4) Mastoiditis: Qualifiers: Laterality: left Qualified Code(s): H70.92 - Unspecified mastoiditis, left ear Code(s): H70.90 - Unspecified mastoiditis, unspecified ear Status: Acute Assessment and Plan: status post myringotomy and tube placed ENT is following patient is awaiting transfer to [facility] for ENT/NSGY eval (5) Otitis media, left: Code(s): H66.92 - Otitis media, unspecified, left ear Status: Acute Assessment and Plan: see above (6) Type 2 diabetes mellitus with hyperglycemia: Code(s): E11.65 - Type 2 diabetes mellitus with hyperglycemia Status: Acute Assessment and Plan: insulin drip has been weaned off sliding scale and Lantus (7) Lactic acidosis: Code(s): E87.2 - Acidosis Status: Acute Assessment and Plan: likely secondary to seizures it cleared off with IV fluid bolus. patient already on broad-spectrum antibiotics. Afebrile over last 24 hours and wbc's not significantly increased than yesterday Additional Plan DVT prophylaxis - start Lovenox Nutrition - Diabetic diet Code Status - Full Code patient is awaiting transfer to [facility] seen hospital Subjective Date/time seen: 01/01/21 Overnight events reviewed. Afebrile Patient appears much more awake this morning but she is confused.. She told me that she remembered me from yesterday. When asked her about chief complaint or review of systems she kept speaking inappropriate words and with inappropriate. she seemed to have difficulty finding words and was struggling although her speech was coherent and clear. Insulin drip has been weaned off. she appears to be able to use her cellphone and is able to unlock her phone with the Passcode. later I saw her sitting in a chair, browsing her phone with her glasses on Vitals acceptable Review of Systems Review of Systems: ROS unobtainable: Yes unobtainable due to medical condition and unobtainable due to mental status Exam Narrative: Exam Narrative: General: Pt is obese confused female not in any distress Lungs/Chest: Trachea central Clear BS B/L, No crackles or wheezing. Cardiac: tachycardic RRR. Normal S1 S2. No murmurs Circulation: Pedal pulses are intact and symmetrical. Abdomen: Normal bowel sounds. obese. Soft. NT. ND. Extremities: No clubbing, cyanosis or edema. Warm : River in place Neurologic: patient is much more awake today as compared to yesterday. she is confused in the sen
[2021-01-01] MEDS: MAGNESIUM SULF 2 GM/WATER 50ML 2 GM/50 ML BAG IVPB (09:27)
[2021-01-01] MEDS: POTASSIUM CHLORIDE 20 MEQ TABLET.ER 40 MEQ PO ×2 (09:27→15:01)
[2021-01-01] MEDS: INSULIN ASPART (*BKC) 100 UNITS/ML SUB-Q ×2 (12:15→17:47)
[2021-01-01] MEDS: BETAMETHASONE/CLOTRIMAZOLE CR 15 GM TUBE 1 APPLIC TOPICAL (12:16)
[2021-01-01 12:23] LABS: Glucose Point of Care 259 mg/dl (65-105)
[2021-01-01] MEDS: HYDROcodone/acetaminophen (*CRX) 5-325 MG TABLET 1 TAB PO (12:56)
--- NOTE | 2021-01-01 15:07 | WPDNEUROPN ---
Progress Note: A&P Additional Plan Patient is receiving the antibiotics showing some improvement in these clinical picture treatment will be continued as such there is no indication for the surgical intervention at this stage Review of Systems Review of Systems: All systems reviewed & are unremarkable except as noted in HPI and below Exam Narrative: Exam Narrative: on examination she is awake alert sitting in chair and the family member is here. She follows the instructions fairly well but when she communicates she is dysphasic with paraphasic errors. Pupils round regular feels the vision full extraocular movements are full facial sensation intact face symmetrical tongue midline motor examination reveals her to have no drift a 1 or other side against gravity reflexes are symmetrical and plantars are downgoing. Objective Data Vital Signs Vital Signs: Vital Signs - 24 hr 12/31/20 15:09 12/31/20 16:00 12/31/20 17:59 Temperature 37.4 C Pulse Rate 92 92 89 Respiratory Rate 20 21 H Blood Pressure 147/84 H Pulse Oximetry 94 97 12/31/20 18:00 12/31/20 20:00 12/31/20 22:00 Temperature 37.4 C Pulse Rate 95 99 100 Respiratory Rate 22 H 17 16 Blood Pressure 172/92 H 169/79 H 185/94 H Pulse Oximetry 98 97 100 01/01/21 00:00 01/01/21 01:59 01/01/21 04:00 Temperature 37.3 C 37.4 C Pulse Rate 98 92 87 Respiratory Rate 20 20 20 Blood Pressure 156/82 H 156/75 H 146/99 H Pulse Oximetry 97 99 98 01/01/21 05:47 01/01/21 05:48 01/01/21 08:00 Temperature 37.4 C 37.5 C Pulse Rate 94 90 106 H Respiratory Rate 26 H 20 Blood Pressure 141/87 H 183/77 H Pulse Oximetry 95 95 01/01/21 09:47 01/01/21 10:00 01/01/21 12:00 Temperature 36.6 C Pulse Rate 101 H 101 H 95 Respiratory Rate 22 H 20 Blood Pressure 143/80 H 149/68 H Pulse Oximetry 97 98 01/01/21 14:00 Temperature Pulse Rate 108 H Respiratory Rate 18 Blood Pressure 156/78 H Pulse Oximetry 92 Intake/Output Intake/Output: Intake & Output 12/29/20 12/30/20 12/31/20 01/01/21 23:59 23:59 23:59 23:59 Intake Total 4824 4311 4738 872 Output Total 259 268 8203 185 Balance 4226 7954 2803 -108 Meds/Results Medications: Active Medications Generic Name Dose Route Start Last Admin Trade Name Freq PRN Reason Stop Dose Admin Hydrocodone Bitart/Acetaminophen 1 tab 12/26/20 20:35 01/01/21 12:56 Hydrocodone/Acetaminophen (*Crx) 5-325 Mg Tablet PO 1 tab Q6H PRN Administration Pain Ciprofloxacin/Hydrocortisone 5 drop 12/28/20 21:00 01/01/21 08:25 Ciprofloxacin Hc Otic 10 Ml LEFT EAR 5 drop Q12HR GREG Administration Clotrimazole 1 applic 12/31/20 21:00 01/01/21 12:16 Betamethasone/Clotrimazole Cr 15 Gm Tube TOPICAL 1 applic Q12HR GREG Administration Dextrose 12.5 gm 12/31/20 10:01 Dextrose 50% 25 Gm/50 Ml Syringe IV PUSH PRN PRN Hypoglycemia Protocol Glucagon 1 mg 12/31/20 10:01 Glucagon For Inj 1 Mg Vial IM PRN PRN Hypoglycemia Protocol Glucose 15 gm 12/31/20 10:01 Glucose Oral Gel 15 Gm Of Glucse In 37.5 Gm Tube PO PRN PRN Hypoglycemia Protocol Cefepime HCl 2 gm in 50 mls @ 100 mls/hr 12/26/20 22:00 01/01/21 14:34 Maxipime 2 Gm/D5w 50 Ml IVPB Infused Q8H GREG Infusion Acyclovir Sodium 1,100 mg/ 272 mls @ 272 mls/hr 12/28/20 08:00 01/01/21 15:01 Dextrose IVPB 272 mls/hr Q8HR GREG Administration Ampicillin Sodium 2 gm in 100 mls @ 200 mls/hr 12/28/20 20:25 01/01/21 13:51 Ampicillin 2 Gm/Ns 100 Ml IVPB Infused Q6HR GREG Infusion Levetiracetam 500 mg in 100 mls @ 400 mls/hr 12/31/20 21:00 01/01/21 09:48 Keppra Iv IVPB Infused Q12HR GREG Infusion Dextrose 1,000 mls @ 100 mls/hr 12/31/20 10:01 Dextrose 5% 1,000 Ml IVPB PRN PRN Hypoglycemia Protocol Insulin Aspart 12 units 12/30/20 08:00 12/31/20 07:53 Insulin Aspart (*Bkc) 100 Units/Ml SUB-Q 12 units [facility] Administ
--- NOTE | 2021-01-01 15:31 | P.NEURO_ITS ---
Neurology EEG Report General Information Date of Study: 12/31/20 TEST eeg DIAGNOSIS change in the mental status CONDITION OF RECORDING drowsy and sleep EEG NUMBER [id number] CLINICAL HISTORY patient came to the hospital with ear infection and intermittent altered mental status and reportedly had a seizure this morning EEG DESCRIPTION hold record consists of low-voltage 15 to 18 hertz per 2nd beta admixed with poorly organized low voltage 9 to 11 hertz per 2nd alpha. Bilateral sleep activity seen. Throughout the trace intermittent low to medium voltage 5 to 7 hertz per 2nd theta activity seen over the left hemispheric linkages. Hyperv entilation not done. Photic stimulation not done. Non paroxysmal. Focal. Lateralizing. IMPRESSION Abnormal record due to the presence of left hemispheric intermittent theta activity even though there is no evidence of any focal paroxysmal discharge but findings suggestive of focal abnormalities. These abnormalities could be suggestive of postictal state.
--- NOTE | 2021-01-01 15:40 | PM.IMPN ---
Progress Note: A&P Assessment and Plan (1) Meningitis: Code(s): G03.9 - Meningitis, unspecified Status: Acute Assessment and Plan: MRI showing signs of meningitis -Pt seems to still have signs of confusion with what seems to be some aphasia -Continue cefepime and vanc and acyclovir due to elevated lymph presence in the LP -LP gram stain showing WBC but no organisms. -Cultures finalized with no organisms seen -spoke with neurology, no further recommendations for now -Spoke with [facility] and [facility] 12/27/20. Pt accepted to [facility] under Dr. Teresa and I spoke to the hospitalist, ENT, and neurology. No new orders -Listeria seems less likely in the setting of otomasoiditis with temporal meningitis on the same side. -Could be related to lodged tampon -Examination did reveal string fragments, patient stated that there was a tampon in her vagina -OB consulted and reveal no such finding -patient currently on cefepime 2 g q.8, vancomycin 1750 q.12, acyclovir 1100 mg q.8, ampicillin 2 g q.6 being managed by infectious disease (2) Altered mental status: Qualifiers: Altered mental status type: unspecified Qualified Code(s): R41.82 - Altered mental status, unspecified Code(s): R41.82 - Altered mental status, unspecified Status: Acute Assessment and Plan: 2/2 to above -stable at this time - could be from possible seizures. with significantly elevated lactic acidosis. CT head repeat with no new change - patient was given 1 mg of Ativan - Keppra has been started, loading dose 1000 mg 1 time, 500 mg b.i.d. Continue Keppra EEG was abnormal without any seizure-like activity per Dr. Krishnan (3) Mastoiditis of left side: Code(s): H70.92 - Unspecified mastoiditis, left ear Status: Acute Assessment and Plan: Continue cefepime and vanc -left-sided myringotomy with tube insertion 12/28/[address] Crow (4) Type 2 diabetes mellitus with hyperglycemia: Code(s): E11.65 - Type 2 diabetes mellitus with hyperglycemia Status: Acute Assessment and Plan: -Pt continues to be uncontrolled. Increase lantus to 20u - patient on insulin drip in the ICU -sliding scale -one time dose of 20units given at breakfast -diabetic diet -A1c 10.8 (5) Hypomagnesemia: Code(s): E83.42 - Hypomagnesemia Status: Acute Assessment and Plan: Mag today is 1.6, the 1.5 on repeat replace with 4 gram Trend labs (6) Elevated blood pressure reading: Code(s): R03.0 - Elevated blood-pressure reading, without diagnosis of hypertension Status: Acute Assessment and Plan: bp 155/85 Monitor closely, not on any medications at home. Could be high due to pain (7) Middle ear infection: Code(s): H66.90 - Otitis media, unspecified, unspecified ear Status: Acute Assessment and Plan: as above (8) Cardiomegaly: Code(s): I51.7 - Cardiomegaly Status: Acute Assessment and Plan: Noted on CXR no signs of heart failure at this time would recommend outpt evaluation once pt acute illness has resolved. If she shows any signs of HF will do an echo (9) Hyponatremia: Code(s): E87.1 - Hypo-osmolality and hyponatremia Status: Acute Assessment and Plan: echo was ordered and pending chest x-ray from 12/28/2020 showed cardiomegaly BNP was 358 (10) Encephalopathy: Code(s): G93.40 - Encephalopathy, unspecified Status: Acute Assessment and Plan: patient had a movement this morning where she became unresponsive, drooling, not following commands loading dose of Keppra 1000 mg IV once, Keppra 500 mg b.i.d. for seizure prophylactic 1 mg of Ativan given once ammonia was less than 9 could be due to possible toxic shock syndrome From noted strength fragments in vagina. obstetrics gynecology consulted for pelvic exam and no such finding foun
--- NOTE | 2021-01-01 15:48 | PM.TDS ---
Transfer Discharge Sum: Prov Provider Date of admission: 12/28/20 11:54 Primary care physician: DISASTER RECOVERY MANAGER PHYSICIAN Admitting clinician: Gt Flores MD Consults: 12/26/20 16:40 Consult to Physician Routine Comment: Consulting Provider: Santino Crow Reason for consultation: mastoiditis Has provider been notified: Yes 12/27/20 11:21 Consult to Physician Routine Comment: Spoke to Dr @ 11:30am () Consulting Provider: Florian Andres call center associate/MD group to consult: neurology Reason for consultation: concerns for meningitis Has provider been notified: Yes 12/28/20 08:18 Consult to Physician Routine Comment: Spoke to 12/29 he seen pt Last night Consulting Provider: Miguel Angel Natarajan call center associate/MD group to consult: infectious disease Reason for consultation: meningitis Has provider been notified: Yes 12/31/20 Consult to Physician Routine Comment: NJ Templeton RN SPOKE WITH DR. MAGALLANES Consulting Provider: Yaw Magallanes call center associate/MD group to consult: OB Reason for consultation: Pelvic exam possible tampon stuck in vagina Has provider been notified: Yes Consult to Physician Routine Comment: icu admission Consulting Provider: Luis Antonio Willett call center associate/MD group to consult: intensivest Reason for consultation: icu admission Has provider been notified: Yes DS: Admitting Diagnosis Admitting Diagnosis Admitting Diagnosis: headache confused DS: Discharge Diagnosis Discharge Diagnosis (1) Aphasia: Code(s): R47.01 - Aphasia Status: Acute (2) Lactic acidosis: Code(s): E87.2 - Acidosis Status: Acute (3) Hyponatremia: Code(s): E87.1 - Hypo-osmolality and hyponatremia Status: Acute (4) Encephalopathy: Code(s): G93.40 - Encephalopathy, unspecified Status: Acute (5) Cardiomegaly: Code(s): I51.7 - Cardiomegaly Status: Acute (6) Meningitis: Code(s): G03.9 - Meningitis, unspecified Status: Acute (7) Otitis media, left: Code(s): H66.92 - Otitis media, unspecified, left ear Status: Acute (8) Mastoiditis of left side: Code(s): H70.92 - Unspecified mastoiditis, left ear Status: Acute (9) Hypomagnesemia: Code(s): E83.42 - Hypomagnesemia Status: Acute (10) Type 2 diabetes mellitus with hyperglycemia: Code(s): E11.65 - Type 2 diabetes mellitus with hyperglycemia Status: Acute Transfer Discharge Sum: Med Medications Active and Home Medications: Home Medications cephalexin 12/26/20 [History] ciprofloxacin-dexamethasone [Ciprodex] drp 12/26/20 [History] gabapentin 12/26/20 [History] glipizide 10 mg PO DAILY 12/26/20 [History Confirmed 12/28/20] metformin 1,000 mg PO DAILY 12/26/20 [History Confirmed 12/28/20] Active Medications Hydrocodone Bitart/Acetaminophen (Hydrocodone/Acetaminophen (*Crx) 5-325 Mg Tablet) 1 tab PO Q6H PRN PRN Reason: Pain Last Admin: 01/01/21 12:56 Dose: 1 tab Documented by: Ciprofloxacin/Hydrocortisone (Ciprofloxacin Hc Otic 10 Ml) 5 drop LEFT EAR Q12HR GREG Last Admin: 01/01/21 08:25 Dose: 5 drop Documented by: Clotrimazole (Betamethasone/Clotrimazole Cr 15 Gm Tube) 1 applic TOPICAL Q12HR GREG Last Admin: 01/01/21 12:16 Dose: 1 applic Documented by: Dextrose (Dextrose 50% 25 Gm/50 Ml Syringe) 12.5 gm IV PUSH PRN PRN; Protocol PRN Reason: Hypoglycemia Glucagon (Glucagon For Inj 1 Mg Vial) 1 mg IM PRN PRN; Protocol PRN Reason: Hypoglycemia Glucose (Glucose Oral Gel 15 Gm Of Glucse In 37.5 Gm Tube) 15 gm PO PRN PRN; Protocol PRN Reason: Hypoglycemia Cefepime HCl (Maxipime 2 Gm/D5w 50 Ml) 2 gm in 50 mls @ 100 mls/hr IVPB Q8H GREG Last Infusion: 01/01/21 14:34 Dose: Infused Documented by: Acyclovir Sodium 1,100 mg/ (Dextrose) 272 mls @ 272 mls/hr IVPB Q8HR GREG Last Admin: 01/01/21 15:01 Dose: 272 mls/hr Documented by: Ampicillin Sodium (Ampicillin 2 Gm/Ns 100 Ml) 2 gm in 100 mls @ 200 mls/hr IVPB Q6HR GREG Last Infusion:
[2021-01-01 17:37] LABS: Glucose Point of Care 285 mg/dl (65-105)
--- NOTE | 2021-01-01 19:11 | PC.NURSE ---
This patient, Zeenat Story, was transferred to [[facility] room 647 via [facility]] on 01/01/21 at 1900. Personal belongings sent with patient. Report given to [ mejia ]. Appropriate documentation sent with patient.
== END 2021-01-01 19:10 | disposition short-term general hospital (02) | DRG 988 ==
LOC: ANHED 13:05 → ANH2MED 17:19 → ANHICU 01-03 12:12
PROVIDERS: Anesthesiology; Nurse Practitioner; Otolaryngology; Physician Assistant; Admitting Provider Family Medicine; Emergency Provider Emergency Medicine; Visit Provider Internal Medicine
PROC: 099670Z Drainage of Left Middle Ear with Drainage Device, Via Natural or Artificial Opening (ICD-10-PCS; principal; 2020-12-28 17:00)
DX: G03.0 Nonpyogenic meningitis (principal); G93.40 Encephalopathy, unspecified; Z68.41 Body mass index [BMI] 40.0-44.9, adult; E87.1 Hypo-osmolality and hyponatremia; E87.2 Acidosis; R47.01 Aphasia; B48.8 Other specified mycoses; H72.92 Unspecified perforation of tympanic membrane, left ear; H66.92 Otitis media, unspecified, left ear; R47.02 Dysphasia; H70.92 Unspecified mastoiditis, left ear; Z20.822 Contact with and (suspected) exposure to COVID-19; E11.65 Type 2 diabetes mellitus with hyperglycemia; I51.7 Cardiomegaly; E83.42 Hypomagnesemia; R03.0 Elevated blood-pressure reading, without diagnosis of hypertension; E66.01 Morbid (severe) obesity due to excess calories; R56.9 Unspecified convulsions; T19.2XXA Foreign body in vulva and vagina, initial encounter; X58.XXXA Exposure to other specified factors, initial encounter; N84.1 Polyp of cervix uteri; Z87.891 Personal history of nicotine dependence; Z90.49 Acquired absence of other specified parts of digestive tract; Z87.442 Personal history of urinary calculi
CPT/HCPCS: 36415; 36569; 36600; 62328; 70450; 70480; 70496; 70498; 70553; 71045; 80048; 80053; 80074; 80076; 80202; 81001; 81025; 82010; 82140; 82607; 82805; 82945; 82948; 83036; 83605; 83735; 83880; 84100; 84157; 84443; 84702; 85025; 85027; 85610; 85652; 85730; 86140; 86617; 87040; 87070; 87075; 87205; 87255; 87426; 87529; 87798; 88108; 89051; 93005; 93306; 95816; 96361; 96365; 96366; 96367; 96368; 96375; 99285; A9270; A9577; C1751; C9803; G0378; J0133; J0290; J0692; J0696; J1815; J1953; J2060; J2370; J2405; J3370; J3475; J3480; J7030; J7040; J7060; J7120; Q9967

== ENCOUNTER 2021-05-18 14:50 | Observation (INO) | payer OTHER, SELFPAY ==
[2021-05-18] VITALS (16 sets, daily range): BP systolic 134–153; BP diastolic 67–98; PULSE 88–109; RESP 15–20; TEMP 36.8; O2SAT 98–99
--- NOTE | ~2021-05-18 | CT_ITS ---
EXAMINATION: CT abdomen pelvis w con DATE: 05/18/2021 19:06 INDICATION: Right lower quadrant abdominal pain. TECHNIQUE: Computed tomography (CT) of the abdomen and pelvis was performed with 100 mL Omnipaque 350 intravenous contrast. Automated exposure control and iterative reconstruction technique were employe d. The dose-length product was 1464.24 mGy-cm. COMPARISON: CT abdomen and pelvis 01/05/2019 FINDINGS: The visualized portions of the lung bases and streaky mild atelectasis. There are chronic 4 mm and 2 mm nodules in right lower lobe, likely benign. No pleural effusion. The heart size is laith l. No pericardial effusion. There is diffuse hepatic steatosis. There are changes of cholecystectomy. The spleen, pancreas, and adrenal glands are normal. There is cortical thinning of the kidneys. Ther e are no dilated loops of bowel. The appendix is normal. There are no pathologically enlarged lymph n odes. There is no free intraperitoneal fluid. There is a 4.2 cm cyst in left ovary. There are chronic bilateral L5 pars defects. There is 9 mm retrolisthesis of L5 on S1. There is moderate thoracic and lumbar spondylosis. IMPRESSION: 1. Diffuse hepatic steatosis. 2. 4.2 cm left ovarian cyst, increased from 2.8 cm on 01/05/19, likely benign. Pelvis ultrasound is re commended in one year. Reviewed, dictated and finalized at location A. PULL MACHINE OPERATOR IMPRESSION: 1. Diffuse hepatic steatosis. 2. 4.2 cm left ovarian cyst, increased from 2.8 cm on 01/05/19, likely benign. P claudia ultrasound is recommended in one year.
--- NOTE | ~2021-05-18 | NM_ITS ---
EXAMINATION: NM taryn stress w perfusion DATE: 05/19/2021 13:58 INDICATION: Chest pain TECHNIQUE: Rest images were obtained following intravenous administration of 9.9 mCi Tc99m tetrofosmi n (Myoview). The patient was infused intravenously with Lexiscan (Regadenoson). Then, 31.2 mCi Tc99m tetrofosmin (Myoview) was administered intravenously, and stress images were obtained. Data was recon structed into short axis and horizontal and vertical long axis SPECT images. Gated SPECT images were also obtained. COMPARISON: None. FINDINGS: There is no definite reversible or fixed perfusion abnormality to suggest ischemia or infar ction. There is normal left ventricular chamber size, wall motion and ejection fraction. Left ventr icular ejection fraction measures 66%. IMPRESSION: 1. Normal myocardial perfusion at rest and during stress. 2. Left ventricular ejection fraction measuring 66%. Reviewed, dictated and finalized at location A. LE MANAGER
--- NOTE | ~2021-05-18 | XR_ITS ---
EXAMINATION: XR chest 2V EXAM DATE: 05/18/2021 15:56 INDICATION: Chest pain 2-3 weeks. TECHNIQUE: Frontal and lateral projections of the chest obtained and reviewed. Comparison is made to prior examination from 12/28/2020. FINDINGS: The lungs are clear. There are no pleural effusions. The cardiomediastinal silhouette is within normal limits. There is no pneumothorax suspected. The bones and soft tissues are unremarkab le. IMPRESSION: No acute cardiopulmonary findings. Reviewed, dictated and finalized at location A. ING AND STAPLING MACHINE OPERATOR
--- NOTE | 2021-05-18 14:54 | ECG_ITS ---
Measurements Intervals [place] Rate: 106 P: 9 IL: 140 QRS: 9 QRSD: 88 T: 14 QT: 332 QTc: 442 Interpretive Statements SINUS TACHYCARDIA ANTERIOR INFARCT, AGE INDETERMINATE INFERIOR INFARCT, AGE INDETERMINATE ABNORMAL ECG Electronically Signed On 05-18-2021 15:56:25 LINE MAINTAINER SECTION by Isrrael Antoine D.O.
[2021-05-18 17:19] LABS: Basophils Absolute Auto 0.1 K/mm3 (0.0-0.1); Basophils Percent Auto 0.8 % (0.2-1.2); Eosinophils Absolute Auto 0.1 K/mm3 (0-0.3); Eosinophils Percent Auto 1.7 % (0-4.4); Hematocrit 36.8 % (37.0-47.0); Hemoglobin 12.5 g/dL (12.0-15.0); Immature Granulocyte Absolute 0.02 K/mm3 (0.00-0.031); Immature Granulocyte Percent A 0.2 % (0-0.5); Lymphocytes Absolute Auto 3.27 K/mm3 (0.9-3.2); Lymphocytes Percent Auto 39.2 % (18.3-44.2); Mean Corpuscular Hemoglobin 29.3 pg (26-34); Mean Corpuscular Volume 86.2 fl (80-100); Mean Platelet Volume 9.6 fl (7.4-10.4); Monocytes Absolute Auto 0.5 K/mm3 (0.1-0.6); Monocytes Percent Auto 6.5 % (2.6-8.5); Neutrophils Absolute Auto 4.3 K/mm3 (1.3-6.7); Neutrophils Percent Auto 51.6 % (45.5-73.1); Platelet Count Result 310 k/mm3 (150-375); Red Blood Count 4.27 M/mm3 (4.2-5.4); Red Cell Distribution Width 13.5 % (11.5-14.5); White Blood Count 8.4 K/mm3 (4.5-10.0)
--- NOTE | 2021-05-18 17:26 | ED.ABDPAIN ---
HPI - Abdominal Pain General Chief Complaint: Abdominal Pain Stated Complaint: R abd Pain,CP Time Seen by Provider: 05/18/21 17:16 Source: patient and RN notes reviewed Mode of arrival: ambulatory Limitations: no limitations History of Present Illness HPI narrative: This is a 56 year old female with history of hypertension, Diabetes Mellitus, encephalitis who presents for evaluation of right lower abdominal pain and chest pain. She has been having both right lower abdominal pain and midsternal chest pressure for 2-3 weeks. Her pain has been intermittent and only last for few minutes. She denies chest pain pain currently. She states her pain is random, and it occurs with rest and activity. She thinks it is due to anxiety because when she gets upset she has pain. Her right abdominal pain has been intermittent as well but today it is constant and associated with nausea and vomiting. She denies any urinary complaints. She reports her abdominal pain is 6/10. Related Data Home Medications Medication Instructions Recorded Confirmed glipizide 10 mg PO DAILY 12/26/20 03/30/21 metformin 1,000 mg PO DAILY 12/26/20 03/30/21 amlodipine 10 mg tablet 10 mg PO DAILY 01/26/21 03/30/21 carvedilol 6.25 mg tablet 6.25 mg PO Q12H 01/26/21 03/30/21 lacosamide 100 mg tablet 100 mg PO Q12H 01/26/21 03/30/21 levetiracetam 1,000 mg tablet 1,000 mg PO Q12H 01/26/21 03/30/21 Allergies Allergy/AdvReac Type Severity Reaction Status Date / Time Penicillins AdvReac Unknown Nausea Verified 05/18/21 17:17 Review of Systems Review of Systems: All systems reviewed & are unremarkable except as noted in HPI and below PMFSH Past Medical History Medical History Kidney stones Morbid obesity with BMI of 40.0-44.9, adult Type 2 diabetes mellitus Surgical History Surgical History History of bilateral carpal tunnel release History of section History of cholecystectomy History of hernia repair Family History Family History Father Cancer Diabetes mellitus Mother Cancer Diabetes mellitus Hypertension Social History Social History Social History: Lives in [place]. Works for the [email or web address] in [place]. Former smoker quit in 2012. No alcohol or illicit substance abuse. Her Alexis is her surrogate decision maker. Code status: Full code. Exam Const: General: no acute distress and alert Orientation/consciousness: patient oriented x3 Eyes: EOM: EOMs intact bilaterally Resp: Effort & Inspection: normal respiratory effort and no retractions Auscultation: clear to auscultation bilaterally Cardio: Rate: regular rate Rhythm: regular rhythm Heart sounds: no murmurs GI: GI Palp: Yes Soft to palpation, Yes Tenderness to palpation present (GI) (RLQ) and No Guarding due to palpation present (GI) Auscultation: normal bowel sounds Back/Spine/Pelvis: Back: no CVA tenderness Neuro: General: patient oriented x3, moves all extremities and CN's II-XI intact bilaterally Psych: Mental Status: mental status grossly normal Affect: normal affect Course Reevaluation(s) Reevaluation #1: I Discussed with patient CT shows left ovarian cyst but no cause of right abdominal pain. Given she is high risk for coronary artery disease I will obs for chest pain. She is agreeable to this plan. Date: 05/18/21 Time: 19:55 Consultations Consultation #1: Dr. Blanco agrees to consult. Date: 05/18/21 Time: 19:55 Consultation #2: I discussed case with DR. Washington who accepts patient to service. Date: 05/18/21 Time: 20:00 Vital Signs Vital signs: Vital Signs Temperature 98.3 F 05/18/21 14:54 Pulse Rate 109 H 05/18/21 14:54 Respiratory Rate 20 05/18/21 14:54 Blood Pressure 149/98 H 05/18/21 14:54 Pulse Oxime
[2021-05-18 17:28] LABS: INR 0.9
[2021-05-18 17:29] LABS: Partial Thromboplastin Time 26.1 SECONDS (22.3-36.8)
[2021-05-18 18:13] LABS: Alanine Aminotransferase 36 U/L (4-35); Alkaline Phosphatase 120 U/L (38-126); Anion Gap 13 mmol/L (8-16); Aspartate Amino Transferase 36 U/L (14-36); Bilirubin,Total 0.4 mg/dL (0.2-1.3); Blood Urea Nitrogen 17 mg/dL (7-17); Calcium 9.5 mg/dL (8.4-10.2); Carbon Dioxide 20 mmol/L (22-30); Chloride 104 mmol/L (98-107); Estimated CRCL calculation 75 ml/min; Estimated Glomerular Filt Rate > 60; Glucose 176 mg/dL (65-110); Lipase 474 U/L (23-300); Potassium 4.2 mmol/L (3.4-5.0); Sodium 137 mmol/L (137-145)
[2021-05-18 18:25] LABS: Troponin I < 0.012 ng/mL (0.000-0.034)
--- NOTE | 2021-05-18 19:00 | PC.NURSE ---
Assuming care of pt.
[2021-05-18 20:08] LABS: Add Urine Microscopic? YES; Appearance Urine Cloudy (Clear); Bilirubin Urine Negative (Negative); Blood Urine Negative (Negative); Color Urine Yellow (Yellow); Glucose Urine UA Negative (Negative); Ketones Urine Negative (Negative); Leukocyte Esterase Ur Trace LEU/UL (Negative); Mucus Urine Rare /lpf; Nitrate Urine Negative (Negative); Protein Urine Negative (Negative); Squamous Epithelial Cell Urine Few /hpf (Few); Urobilinogen Urine Negative mg/dL (<2.0)
--- NOTE | 2021-05-18 20:19 | PM.IMHP ---
H&P: HPI History of Present Illness Date/Time: 05/18/21 20:19 Chief Complaint: Chest pain abdominal pain Narrative: This is a 56 year old female with history of hypertension, Diabetes Mellitus, recent encephalitis causing seizures presents for evaluation of right lower abdominal pain and chest pain. She states she started having right lower abdominal pain since past few days which is dull 6 x 10 in intensity associated with nausea vomiting. She also has been having intermittent diarrhea since past few days. No blood in stool. She denies any urinary complaints with no burning or frequency of urination. She states she has not had a period since her encephalitis in December 2020. Today she was also noticing some chest pressure that she is getting intermittently and hence came to the ER for evaluation. See denies any fever or chills. She was evaluated in the ER with CT abdomen and pelvis which showed left ovarian cyst which is larger in size compared to previous imaging report. She reports that she always had left-sided cyst in her ovary she does follow-up with the [facility] executive [facility]. Her chest x-ray came back negative. EKG had only nonspecific ST-T changes troponins were negative. Her lipase level was elevated at 474. She is getting admitted for further evaluation and management. She has been given aspirin 325 mg for her chest pressure. She denies any other complaints Review of Systems Review of Systems: - CONSTITUTIONAL: Denies weight loss, fever and chills. - HEENT: Denies changes in vision and hearing - RESPIRATORY: Denies SOB and cough. - CV: Denies palpitations and reports CP. - GI: Reports abdominal pain, nausea, vomiting and diarrhea. - : Denies dysuria and urinary frequency. - MSK: Denies myalgia and joint pain. - SKIN: Denies rash and pruritus. - NEUROLOGICAL: Denies headache and syncope. - PSYCHIATRIC: Denies recent changes in mood. Denies anxiety and depression. All systems reviewed & are unremarkable except as noted in HPI and below Constitutional: Constitutional: Reports fatigue and Reports weakness Neurologic: Reports weakness Endocrine: Endocrine: Reports fatigue PMFSH Past Medical History Medical History Kidney stones Morbid obesity with BMI of 40.0-44.9, adult Type 2 diabetes mellitus Surgical History Surgical History History of bilateral carpal tunnel release History of section History of cholecystectomy History of hernia repair Family History Family History Father Cancer Diabetes mellitus Mother Cancer Diabetes mellitus Hypertension Social History Social History Social History: Lives in [place]. Works for [employer] in [employer]. Former smoker quit in 2012. No alcohol or illicit substance abuse. Her Alexis is her surrogate decision maker. Code status: Full code. Meds Home Medications and Allergies Home Medications Medication Instructions Recorded Confirmed Type glipizide 10 mg PO DAILY 12/26/20 03/30/21 History metformin 1,000 mg PO DAILY 12/26/20 03/30/21 History amlodipine 10 mg tablet 10 mg PO DAILY 01/26/21 03/30/21 History carvedilol 6.25 mg tablet 6.25 mg PO Q12H 01/26/21 03/30/21 History lacosamide 100 mg tablet 100 mg PO Q12H 01/26/21 03/30/21 History levetiracetam 1,000 mg tablet 1,000 mg PO Q12H 01/26/21 03/30/21 History Allergies Allergy/AdvReac Type Severity Reaction Status Date / Time Penicillins AdvReac Unknown Nausea Verified 05/18/21 17:17 Vital Signs Vital Signs - 24 hr 05/18/21 14:54 05/18/21 17:12 05/18/21 19:10 Temperature 98.3 F Pulse Rate 109 H 103 H 90 Respiratory Rate 20 18 16 Blood Pressure 149/98 H 153/77 H 137/68 Pulse Oximetry 98 98 99 05/18/21 20:02 Temperature Pul
[2021-05-18] MEDS: ASPIRIN 81 MG CHEWABLE TABLET 324 MG PO (20:21)
[2021-05-18 20:46] LABS: Troponin I < 0.012 ng/mL (0.000-0.034)
[2021-05-18 20:53] LABS: Specific Grav Ur 1.034 (1.001-1.035)
[2021-05-18 22:03] LABS: Troponin I < 0.012 ng/mL (0.000-0.034)
[2021-05-19] VITALS (51 sets, daily range): BP systolic 105–153; BP diastolic 61–95; PULSE 86–117; RESP 8–29; O2SAT 94–98
[2021-05-19 07:57] LABS: Basophils Absolute Auto 0.1 K/mm3 (0.0-0.1); Basophils Percent Auto 1.2 % (0.2-1.2); Eosinophils Absolute Auto 0.2 K/mm3 (0-0.3); Eosinophils Percent Auto 2.4 % (0-4.4); Hematocrit 36.4 % (37.0-47.0); Hemoglobin 12.2 g/dL (12.0-15.0); Immature Granulocyte Absolute 0.02 K/mm3 (0.00-0.031); Immature Granulocyte Percent A 0.3 % (0-0.5); Lymphocytes Absolute Auto 2.55 K/mm3 (0.9-3.2); Lymphocytes Percent Auto 38.2 % (18.3-44.2); Mean Corpuscular HGB Conc 33.5 g/dl (32-36); Mean Corpuscular Hemoglobin 28.5 pg (26-34); Mean Platelet Volume 9.4 fl (7.4-10.4); Monocytes Absolute Auto 0.4 K/mm3 (0.1-0.6); Monocytes Percent Auto 6.6 % (2.6-8.5); Neutrophils Absolute Auto 3.4 K/mm3 (1.3-6.7); Neutrophils Percent Auto 51.3 % (45.5-73.1); Platelet Count Result 277 k/mm3 (150-375); Red Blood Count 4.28 M/mm3 (4.2-5.4); Red Cell Distribution Width 13.2 % (11.5-14.5); White Blood Count 6.7 K/mm3 (4.5-10.0)
[2021-05-19] MEDS: carvediloL 6.25 MG TABLET PO (08:33)
[2021-05-19 08:34] LABS: Alanine Aminotransferase 42 U/L (4-35); Albumin Level 3.8 g/dL (3.5-5.1); Alkaline Phosphatase 112 U/L (38-126); Anion Gap 6 mmol/L (8-16); Aspartate Amino Transferase 50 U/L (14-36); Bilirubin,Total 0.5 mg/dL (0.2-1.3); Blood Urea Nitrogen 18 mg/dL (7-17); Calcium 8.7 mg/dL (8.4-10.2); Carbon Dioxide 26 mmol/L (22-30); Chloride 100 mmol/L (98-107); Estimated CRCL calculation 84 ml/min; Estimated Glomerular Filt Rate > 60; Glucose 245 mg/dL (65-110); Lipase 100 U/L (23-300); Potassium 4.3 mmol/L (3.4-5.0); Sodium 132 mmol/L (137-145)
[2021-05-19] MEDS: LACOSAMIDE (*CRX) 100 MG TABLET PO (08:34)
[2021-05-19] MEDS: amLODIPine BESYLATE 5 MG TABLET 10 MG PO (08:34)
[2021-05-19] MEDS: levETIRAcetam 500 MG TABLET 1000 MG PO (08:34)
[2021-05-19] MEDS: SODIUM CHLORIDE 0.9% IV 1,000 ML 75 ML IV CONT (08:35)
--- NOTE | 2021-05-19 08:50 | PC.NURSE ---
BS 248
[2021-05-19 08:55] LABS: Glucose Point of Care 248 mg/dl (65-105)
[2021-05-19] MEDS: INSULIN ASPART (*BKC) 100 UNITS/ML SUB-Q (09:00)
--- NOTE | 2021-05-19 09:10 | EST_ITS ---
Patient Info Name: Zeenat Story Age: 56 years : 1965 Gender: Female Ht: 63 in Wt: 248 lbs BSA: 2.30 m2 HR: 89 bpm BP: 125 / 70 mmHg Heart Rhythm: Sinus Rhythm Exam Date: 05/19/2021 12:18 PM Exam Location: [facility] Stress Patient Status: Outpatient Admit Date: 05/18/2021 Staff Ordering Physician: Deyanira Oviedo MD Attending Provider: Uziel Washington MD Exercise Technologist: Chantale Luciano CT Exercise Physician: Josselin Blanco MD Exam Type: CA stress taryn w NM Study Info Indications R07.9 - Chest pain, unspecified A regadenoson stress test was performed. Summary 1. No abnormal ST-T wave changes with lexiscan. 2. Nuclear test results to follow. Protocol: Lexiscan Stress ECG Details Stage: REST Duration (min): 1 min : 23 sec HR (bpm): 89 SBP (mmHg): 125 DBP (mmHg): 70 Stage: REST Duration (min): 15 min : 35 sec HR (bpm): 90 SBP (mmHg): 125 DBP (mmHg): 70 Stage: STAGE 1 Duration (min): 1 min : 0 sec HR (bpm): 96 SBP (mmHg): 123 DBP (mmHg): 62 Stage: RECOVERY Duration (min): 1 min : 0 sec HR (bpm): 109 SBP (mmHg): 123 DBP (mmHg): 62 Stage: RECOVERY Duration (min): 2 min : 0 sec HR (bpm): 106 SBP (mmHg): 123 DBP (mmHg): 62 Stage: RECOVERY Duration (min): 3 min : 0 sec HR (bpm): 106 SBP (mmHg): 135 DBP (mmHg): 60 Stage: RECOVERY Duration (min): 4 min : 0 sec HR (bpm): 106 SBP (mmHg): 135 DBP (mmHg): 60 Stage: RECOVERY Duration (min): 4 min : 52 sec HR (bpm): 104 SBP (mmHg): 139 DBP (mmHg): 56 Rest HR: 90 bpm Peak HR: 109 bpm Rest Sys BP: 125 mmHg Peak Sys BP: 139 mmHg Max Pred HR: 165 bpm % Max Pred HR: 66 % Target HR: 140 bpm Max RPP: 15,151 bpm*mmHg BP Response: Normal blood pressure response Termination Reason: Completed protocol Cardiac Symptoms: None Total Time: 1 min : 0 sec Rest Bass BP: 70 mmHg Peak Bass BP: 56 mmHg Total Dose: 0.4 mg Resting ECG Normal sinus rhythm - normal ECG. Stress ECG No abnormal ST/T wave changes with exercise. Arrhythmias None. Report Signatures
--- NOTE | 2021-05-19 09:42 | PM.CNCAR ---
Assessment and Plan Additional Plan -chest pain - abnormal EKG - diabetes - hypertension - right lower quadrant pain - history of encephalitis and seizures this is 56-year-old patient who presents the hospital with right lower quadrant pain but also complaining of squeezing central chest pain for the last few months. Intermittent and aggravated by anxiety and also symptoms by exertion. Her EKG looks abnormal showing anterior and inferior old NH. She has multiple factors for coronary artery disease including diabetes and hypertension. Arrange for Lexiscan stress test to rule out ischemia resume home medications for blood pressure History of Present Illness History of Present Illness Consult date/time: Date of service 05/19/21 09:42 Requesting physician: Karen Hobson MD Consult reason: chest pain Reason For Visit: Chest pain, Ovarian Cyst,Right Abdominal Pain Narrative: this is 56-year-old female with past history of hypertension, obesity, type 2 diabetes and history of encephalitis and seizures in December 2020 who presents to the hospital complaining of right lower quadrant pain that has been ongoing for couple weeks. She also was complaining of squeezing central chest pain that started after the last hospitalization in December. It is squeezing in nature happens when she is stressed out or sometimes when she ambulates lasting for about a couple minutes with no radiation and associated with shortness of breath. Denies lower limb edema, dizziness, syncope, palpitations. Advanced to the right lower quadrant pain she had this for couple weeks but yesterday she had a episode of vomiting. She mentions colonoscopy done 3-4 years ago that was looked unremarkable as patient states She quit smoking 8 years ago, troponins x3 negative, white cell count 6 K, CT scan of the pelvis shows cyst in the left ovary and recommended 1 year follow-up. EKG reviewed analyze myself shows sinus tachycardia, Q-waves inferior leads and Q-waves in leads V3 to V6 but no active ischemia. Review of Systems Constitutional: Constitutional: Denies chills, Denies fever(s) and Denies poor appetite Eyes: Eyes: Denies eye discharge, Denies loss of vision, Denies eye pain and Denies photophobia ENT: Denies dizziness, Denies epistaxis, Denies nasal congestion and Denies sore throat Cardiovascular: Cardiovascular: Reports chest pain, Denies syncope, Denies pedal edema, Denies leg edema, Denies palpitations, Denies dyspnea, Reports dyspnea on exertion and Denies orthopnea Respiratory: Respiratory: Denies cough, Denies dyspnea, Reports dyspnea on exertion and Denies wheezing Gastrointestinal: Gastrointestinal: Denies abdominal pain, Denies diarrhea, Denies nausea and Denies vomiting Genitourinary: Genitourinary: Denies hematuria, Denies genital lesions and Denies dysuria Musculoskeletal: Musculoskeletal: Denies arthralgias, Denies joint swelling and Denies numbness Integumentary/Breasts: Skin/Breast: Denies pruritus and Denies rash Neurologic: Denies dizziness, Denies syncope, Denies loss of vision and Denies numbness Psychiatric: Psychiatric: Denies anxiety and Denies depression Endocrine: Endocrine: Denies cold intolerance, Denies heat intolerance and Denies palpitations Hematologic/Lymphatic: Hematologic/Lymphatic: Denies easy bleeding and Denies easy bruising Allergic/Immunologic: Allergic/Immunologic: Denies urticaria and Denies wheezing PMFSH Past Medical History Medical History Kidney stones Morbid obesity with BMI of 40.0-44.9, adult Type 2 diabetes mellitus Surgical History Surgical History History of bilateral carpal tunnel release History of section History of cholecystectomy History of hernia repair Family History Family History Father Cancer Diabetes mellitus
[2021-05-19 13:49] LABS: Glucose Point of Care 194 mg/dl (65-105)
--- NOTE | 2021-05-19 15:07 | PM.DS ---
DS: Admitting Diagnosis Discharge Date 05/19/21 Admitting Diagnosis Chest pain DS: Discharge Diagnosis Discharge Diagnosis (1) Abdominal pain, right lower quadrant: Code(s): R10.31 - Right lower quadrant pain Status: Acute (2) Chest pain: Code(s): R07.9 - Chest pain, unspecified Status: Acute (3) Gastroenteritis: Code(s): K52.9 - Noninfective gastroenteritis and colitis, unspecified Status: Acute (4) Type 2 diabetes mellitus: Code(s): E11.9 - Type 2 diabetes mellitus without complications Status: Acute (5) Seizure: Code(s): R56.9 - Unspecified convulsions Status: Acute DS: Summary Hospital Course Reason for hospitalization: 56yo female with DM, HTN and recent encephalitis with associated seizures here for chest pain. Please see H&P for details Hospital Course: Patient presents with complaints of right lower abdominal pain associated with nausea, vomiting and diarrhea the past few days. During her evaluation she also revealed that she has been having chest pain the past 2-3 weeks that is associated with anxiety. She states that chest pain lasts a few seconds. No shortness of breath or pleuritic chest pain. Emergency room patient was mildly tachycardic at 1:09 a.m. with blood pressure 149/98. CBC, PT PTT were normal. CMP was normal except for bicarb of 20, glucose 176 and ALT 36. Troponin negative x3. Lipase slightly elevated 474 but on repeat normalized. UA had trace leukocyte esterase and 4-6 white cells but this did not prompt a urine culture. Chest x-ray was clear. CT of the abdomen pelvis showed diffuse hepatic steatosis. She also was noted to have a 4.2 cm cyst in the left ovary with recommendation of a pelvic ultrasound in 1 year. EKG showed anterior and inferior infarct, age indeterminate. EKG was similar to an EKG from December without acute changes. Patient was seen by Cardiology and underwent Lexiscan stress test. Nuclear images showed normal myocardial perfusion at rest and during stress with an EF of 66%. There is no definitive reversible or fixed perfusion abnormalities. Discussed with cardiology who felt patient could be discharged home safely. They relate see the patient back in 2-3 months. [place] that the patient has. Chest pain was related to anxiety. Her abdominal pain has resolved and was felt this was related to gastroenteritis. No abnormalities noted on the CT scan otherwise. Patient overall did well and was able to be discharged home on 05/19/2021. Status at Discharge Cognitive/behavioral status at discharge: stable Time Spent with Patient Time attestation: Total time spent providing and/or coordinating discharge services: 35 minutes Time spent: Greater than 30 minutes Exam Narrative: AF 98.3 124/68 89 17 94% ra Gen - NARD Chest - CTA bilaterally, nml RR CV - RRR S1/S2 Abd - Soft, NT/ND, Positive BS Ext - No pedal edema Psych - Nml mood and affect Skin - Warm and dry DS: Data Data Completed and Pending Labs on day of discharge: Labs from last 24 hours 05/19/21 05/19/21 05/19/21 13:46 08:47 07:39 WBC RBC Hgb Hct MCV MCH MCHC RDW Plt Count MPV Immature Gran % (Auto) Neut % (Auto) Lymph % (Auto) [place] % (Auto) Eos % (Auto) Baso % (Auto) Lymph # (Auto) [place] # (Auto) Eos # (Auto) Baso # (Auto) Abs Immat Gran (auto) Absolute Neuts (auto) Absolute Nucleated RBC Nucleated RBC % PT INR APTT Sodium 132 L Potassium 4.3 Chloride 100 Carbon Dioxide 26 Anion Gap 6 L BUN 18 H Creatinine 0.80 Estim Creat Clear Calc 84 Estimated GFR > 60 Glucose 245 H POC Capillary Glucose 194 H 248 H Calcium 8.7 Total Bilirubin 0.5 AST 50 H ALT 42 H Alkaline Phosphatase 112 Troponin I Total Protein 7.0 Albumin 3.8 Lipase 100 Urine Color Urine Appearance Urine
--- NOTE | 2021-05-19 17:33 | PC.NURSE ---
pt discharged to home, pt had all questions answered prior to leaving the Dept. educated on medications and discharge instructions. stable to leave the ED. ambulatory out of Dept
== END 2021-05-19 17:35 | disposition home or self-care (01) ==
LOC: ANHED 17:26 → ANHIMU 21:11 → ANH3MEDSUR 05-23 14:00
PROVIDERS: Emergency Medicine; Admitting Provider Internal Medicine; Emergency Provider General Practice; PCP Nurse Practitioner Family; Visit Provider Internal Medicine
DX: R07.9 Chest pain, unspecified (principal); K52.9 Noninfective gastroenteritis and colitis, unspecified; E11.9 Type 2 diabetes mellitus without complications; I25.2 Old myocardial infarction; K76.0 Fatty (change of) liver, not elsewhere classified; N83.202 Unspecified ovarian cyst, left side; I10 Essential (primary) hypertension; E66.01 Morbid (severe) obesity due to excess calories; Z68.41 Body mass index [BMI] 40.0-44.9, adult; Z87.891 Personal history of nicotine dependence; Z79.84 Long term (current) use of oral hypoglycemic drugs
CPT/HCPCS: 36415; 71046; 74177; 78452; 80053; 81001; 82948; 83690; 84484; 85025; 85610; 85730; 93005; 93017; 99285; A9270; A9502; G0378; J1815; J2785; J7030; J7050; Q9967

== ENCOUNTER 2023-07-26 08:20 | Emergency (ER) | payer OTHER, SELFPAY ==
[2023-07-26] VITALS (11 sets, daily range): BP systolic 127–177; BP diastolic 78–93; PULSE 90–100; RESP 13–26; TEMP 36.7; O2SAT 97–100
--- NOTE | ~2023-07-26 | CT_ITS ---
EXAMINATION: CTA chest PE abdomen pel DATE: 07/26/2023 13:04 INDICATION: Shortness of breath and abdominal pain TECHNIQUE: Computed tomography angiography (CTA) of the chest was performed with 100 mL Omnipaque-350 intravenous contrast timed to evaluate the pulmonary arteries. Subsequent postcontrast images of the abdomen and pelvis are obtained. Coronal maximum intensity projection 3D-reconstructions were create d by the technologist. The dose-length product (DLP) was 2056.42 mGy-cm. Automated exposure control a nd iterative reconstruction technique were employed. COMPARISON: 05/18/2021 FINDINGS: CTA CHEST: The pulmonary arteries are well-opacified. No pulmonary embolism is identified. The lungs are free of focal airspace opacities. No pleural effusion or pneumothorax. The heart size is normal. There is mild dependent atelectasis. A mildly enlarged right upper paratracheal lymph node measures u p to 12 mm. There is moderate thoracic spondylosis. ABDOMEN/PELVIS CT: There are changes of cholecystectomy. The liver, spleen, pancreas, and adrenal gla nds are normal. The right kidney is unremarkable. There is a 5 mm cyst of the left kidney. No patholo gically enlarged abdominal or pelvic lymph nodes are identified. No free intraperitoneal gas or evide nce of bowel obstruction. The appendix is normal . There are bilateral L5 pars interarticularis defec ts with grade 1 anterolisthesis of L5 on S1. IMPRESSION: 1. No pulmonary embolus identified. 2. No acute findings of the abdomen or pelvis. 3. Mildly enlarged right upper paratracheal lymph node, likely reactive although finding could reflec t metastatic disease if there is known malignancy. Reviewed, dictated and finalized at location L. [employer]E PLANT LABORER IMPRESSION: 1. No pulmonary embolus identified. 2. No acute findings of the abdomen or pelvis. 3. Mildly enlarged right upper paratracheal lymph node, likely reactive althoug h finding could reflect metastatic disease if there is known malignancy.
--- NOTE | ~2023-07-26 | XR_ITS ---
EXAMINATION: XR chest 2V DATE: 07/26/2023 08:58 INDICATION: Chest pain TECHNIQUE: PA and lateral views of the chest are obtained. COMPARISON: 05/18/2021 FINDINGS: The lungs are free of acute opacities. No pleural effusion or pneumothorax. The cardiomedia stinal silhouette is normal. There is moderate thoracic spondylosis. Surgical clips in the right uppe r quadrant are likely from prior cholecystectomy. IMPRESSION: 1. No acute cardiopulmonary abnormality. Reviewed, dictated and finalized at location L. COUNCIL MEMBER
--- NOTE | 2023-07-26 08:23 | ECG_ITS ---
Measurements Intervals [place] Rate: 100 P: 8 WA: 148 QRS: -9 QRSD: 89 T: 7 QT: 335 QTc: 432 Interpretive Statements SINUS TACHYCARDIA POSSIBLE LEFT ATRIAL ENLARGEMENT [-0.1mV P WAVE IN V1/V2] ANTERIOR MYOCARDIAL INFARCTION , OF INDETERMINATE AGE [40+ ms Q WAVE AND/OR ST/T ABNORMALITY IN V3/V4] INFERIOR MYOCARDIAL INFARCTION , PROBABLY OLD [40+ ms Q WAVE AND/OR ST/T ABNORMALITY IN II/aVF] COMPARED TO ECG 05/18/2021 15:05:21 NO SIGNIFICANT CHANGES Electronically Signed On 07-26-2023 11:27:05 INTERNET PROJECT MANAGER by Ramiro Young M.D.
[2023-07-26] MEDS: ASPIRIN 81 MG CHEWABLE TABLET 324 MG PO (08:37)
[2023-07-26 09:02] LABS: Basophils Absolute Auto 0.1 K/mm3 (0.0-0.1); Eosinophils Absolute Auto 0.1 K/mm3 (0-0.3); Eosinophils Percent Auto 1.4 % (0-4.4); Hematocrit 40.3 % (37.0-47.0); Hemoglobin 13.5 g/dL (12.0-15.0); Immature Granulocyte Absolute 0.03 K/mm3 (0.00-0.031); Immature Granulocyte Percent A 0.4 % (0-0.5); Lymphocytes Absolute Auto 2.66 K/mm3 (0.9-3.2); Lymphocytes Percent Auto 38.4 % (18.3-44.2); Mean Corpuscular HGB Conc 33.5 g/dl (32-36); Mean Corpuscular Hemoglobin 28.4 pg (26-34); Mean Corpuscular Volume 84.7 fl (80-100); Monocytes Absolute Auto 0.4 K/mm3 (0.1-0.6); Monocytes Percent Auto 5.1 % (2.6-8.5); Neutrophils Absolute Auto 3.7 K/mm3 (1.3-6.7); Neutrophils Percent Auto 53.7 % (45.5-73.1); Platelet Count Result 294 k/mm3 (150-375); Red Blood Count 4.76 M/mm3 (4.2-5.4); White Blood Count 6.9 K/mm3 (4.5-10.0)
[2023-07-26 09:05] LABS: Alanine Aminotransferase 23 U/L (6-35); Albumin Level 3.8 g/dL (3.5-5.1); Alkaline Phosphatase 193 U/L (38-126); Anion Gap 10 mmol/L (8-16); Aspartate Amino Transferase 32 U/L (14-36); Bilirubin,Total 0.7 mg/dL (0.2-1.3); Blood Urea Nitrogen 12 mg/dL (7-17); Calcium 9.1 mg/dL (8.4-10.2); Carbon Dioxide 23 mmol/L (22-30); Chloride 99 mmol/L (98-107); Estimated CRCL calculation 89 ml/min; Estimated Glomerular Filt Rate > 60; Glucose 424 mg/dL (65-110); Lipase 483 U/L (23-300); Potassium 4.8 mmol/L (3.4-5.0); Sodium 132 mmol/L (137-145)
[2023-07-26 09:09] LABS: INR 0.9; Prothrombin Time 12.8 Seconds (11.1-14.7)
[2023-07-26 09:10] LABS: Partial Thromboplastin Time 27.8 SECONDS (22.3-36.8)
[2023-07-26 09:11] LABS: Troponin I < 0.012 ng/mL (0.000-0.034)
[2023-07-26 09:24] LABS: Influenza A QL RT-PCR Negative (Negative); Influenza B QL RT-PCR Negative (Negative); RSV RNA, RT-PCR Negative (Negative); SARS-CoV-2 RNA PCR Negative (Negative)
[2023-07-26 10:36] LABS: D Dimer 0.36 ug/mL (<0.48)
[2023-07-26 11:58] LABS: Troponin I < 0.012 ng/mL (0.000-0.034)
--- NOTE | 2023-07-26 13:19 | ED.CHESTPAIN ---
HPI - Chest Pain General Chief Complaint: Chest Pain Stated Complaint: chest pain Time Seen by Provider: 07/26/23 09:21 History of Present Illness HPI narrative: Patient is a 58-year-old female who presents to the emergency department this complaining of ongoing shortness of breath and dyspnea which has been ongoing since the beginning of last month, approximately for 4 weeks. Patient states that early June she and her tested positive for influenza, her has been needed to be hospitalized but she was able to manage her symptoms at with [id number] medications. Patient states that although she feels as though she cleared the influenza and her cough improves, she continues to have shortness of breath. Patient does have a history of multiple blood clots in the long which were precipitated by a surgery she had prior to the blood clots. She denies any sharp chest pain but admits to mid epigastric discomfort/pressure. She denies any history of GERD. Patient denies any additional symptoms including nausea, vomiting, abdominal pain, dysuria, hematuria, constipation, diarrhea, melena, hematochezia, fevers or chills. Patient also denies any headaches, dizziness, lightheadedness, blurry visions, focal weakness, numbness and or tingling. There are no other modifying, alleviating, or precipitating factors at this time. Related Data Home Medications Medication Instructions Recorded Confirmed glipizide 10 mg tablet, extended 10 mg PO DAILY 12/26/20 08/01/21 release 24 hr metformin 1,000 mg tablet 1,000 mg PO DAILY 12/26/20 08/01/21 amlodipine 10 mg tablet 10 mg PO DAILY 01/26/21 08/01/21 carvedilol 6.25 mg tablet 6.25 mg PO Q12H 01/26/21 08/01/21 lacosamide 100 mg tablet 100 mg PO Q12H 01/26/21 08/01/21 levetiracetam 1,000 mg tablet 1,000 mg PO Q12H 01/26/21 08/01/21 Allergies Allergy/AdvReac Type Severity Reaction Status Date / Time Penicillins AdvReac Unknown Nausea Verified 08/01/21 07:42 Review of Systems Review of Systems: All systems are reviewed and are negative unless stated otherwise in the HPI. [facility] Past Medical History Medical History Kidney stones Morbid obesity with BMI of 40.0-44.9, adult Type 2 diabetes mellitus Surgical History Surgical History History of bilateral carpal tunnel release History of section History of cholecystectomy History of hernia repair Family History Family History Father Cancer Diabetes mellitus Mother Cancer Diabetes mellitus Hypertension Social History Social History Social History: Lives in [place]. Works for [employer] in [place]. Former smoker quit in 2012. No alcohol or illicit substance abuse. Her Alexis is her surrogate decision maker. Code status: Full code. Smoking status: Former smoker Alcohol intake: current Alcohol use details: occasional Exam Narrative: General: Alert, awake, afebrile, in no acute distress. HEENT: PERRL, no rhinorrhea, no post nasal drip, oropharynx clear. Neck: Trachea midline, no JVD, no lymphadenopathy. Cardiovascular: Regular rate and rhythm, no murmurs, rubs or gallops, no peripheral edema. Respiratory: Clear to auscultation bilaterally, no tachypnea, no wheezing, no rhonchi, no rubs, no respiratory distress. Abdomen: Soft, nontender, nondistended, no rebound, no guarding, no peritoneal signs. Musculoskeletal: No joint swelling or deformity, normal muscle tone. Skin: No rashes or petechia, no signs of infection. Psychiatric: Alert and oriented, normal behavior and judgment for situation. Neurological: Alert and oriented to person, place, and time. Follows all commands. No focal deficits, speech is clear and fluent. Course Vital Signs Vital signs: Vital Signs Temp
== END 2023-07-26 14:20 | disposition home or self-care (01) ==
PROVIDERS: Emergency Provider Emergency Medicine; PCP Nurse Practitioner Family
DX: R06.00 Dyspnea, unspecified (principal); Z20.822 Contact with and (suspected) exposure to COVID-19; E11.9 Type 2 diabetes mellitus without complications; E66.01 Morbid (severe) obesity due to excess calories; Z68.41 Body mass index [BMI] 40.0-44.9, adult; Z87.442 Personal history of urinary calculi; Z87.891 Personal history of nicotine dependence; Z90.49 Acquired absence of other specified parts of digestive tract; Z79.84 Long term (current) use of oral hypoglycemic drugs
CPT/HCPCS: 36415; 71046; 71275; 74177; 80053; 83690; 84484; 85025; 85380; 85610; 85730; 87637; 93005; 99284; A9270; Q9967

== ENCOUNTER 2024-02-21 09:34 | Outpatient (CLI) | payer OTHER, SELFPAY | END 2024-02-21 09:35 | disposition home or self-care (01) | LOC: ANHAUDIO 09:36 | PROVIDERS: PCP Nurse Practitioner Family; Visit Provider Otolaryngology | DX: H90.42 Sensorineural hearing loss, unilateral, left ear, with unrestricted hearing on the contralateral side (principal) | CPT/HCPCS: 92557; 92567 ==

== ENCOUNTER 2025-04-23 18:46 | Emergency (ER) | payer OTHER, SELFPAY ==
[2025-04-23] VITALS (7 sets, daily range): BP systolic 135–173; BP diastolic 66–94; PULSE 86–96; RESP 13–19; TEMP 36.2; O2SAT 95–99
--- NOTE | ~2025-04-23 | CT_ITS ---
EXAMINATION: CTA chest PE protocol DATE: 04/24/2025 00:53 INDICATION: Rule out PE TECHNIQUE: Computed tomography angiography (CTA) of the chest was performed with 100 mL Omnipaque-350 intravenous contrast timed to evaluate the pulmonary arteries. Coronal maximum intensity projection 3D-reconstructions were created by the technologist. The dose-length product was 959.51 mGy-cm. COMPARISON: July 26, 2023 FINDINGS: Exam is somewhat degraded by respiratory motion and beam hardening streak artifact. No central large pulmonary emboli. Thoracic aorta appears normal in size. Heart appears normal. Mild patchy areas of groundglass opacification noted. Mild atelectatic changes present with no consolidation effusion or pneumothorax. No bulky lymphadenopathy masses. Mildly enlarged right paratracheal lymph nodes similar to the previous exam. No acute process seen in the visualized upper abdomen. There appears to be at least mild hepatomegaly partially visualized. Cholecystectomy clips also noted. Degenerative changes throughout the thoracic spine. IMPRESSION: 1. No pulmonary emboli. Exam somewhat limited as well. 2. Mild groundglass opacification could be associated with vascular congestion; correlate clinically for possible pneumonitis. 3. Other chronic findings as above. NOTE: Preliminary radiology report provided by [facility] physician/radiologist. Reviewed, dictated and finalized at location A. ING VESSEL OPERATOR
--- NOTE | ~2025-04-23 | XR_ITS ---
XR chest 2V HOSTORY: palpitations COMPARISON:[ None] FINDINGS: Frontal and lateral views of the chest were obtained. The lungs are clear. The heart size is normal in size. Pulmonary vasculature is unremarkable. Osseous structures are intact. IMPRESSION: No acute lung findings.] [ ] Reviewed, dictated and finalized at location S. NSIC ANTHROPOLOGIST
--- NOTE | 2025-04-23 18:48 | ECG_ITS ---
Test Date: 2025-04-23 18:52:52 Measurements Intervals [place] Rate: 91 P: 13 MT: 173 QRS: -2 QRSD: 89 T: 14 QT: 355 QTc: 438 Interpretive Statements SINUS RHYTHM INFERIOR MYOCARDIAL INFARCTION , PROBABLY OLD [40+ ms Q WAVE AND/OR ST/T ABNORMALITY IN II/aVF] ANTEROLATERAL MYOCARDIAL INFARCTION , PROBABLY OLD [40+ ms Q WAVE IN I/aVL/V3-V6] No previous ECG available for comparison Electronically Signed On 04-23-2025 21:26:55 NEUROSCIENTIST by Deyanira Oviedo M.D.
--- NOTE | 2025-04-23 18:49 | ED_ITS ---
HPI - Arrhythmia/Palpitations General Chief Complaint: Arrhythmia/Palpitations <Deann Barry PA-C - Last Filed: 04/25/25 14:35> Stated Complaint: palpitations <Deann Barry PA-C - Last Filed: 04/25/25 14:35> Time Seen by Provider: 04/23/25 18:49 <Deann Barry PA-C - Last Filed: 04/25/25 14:35> Focused HPI: This is a 60 year old female that presents to the ER for palpitations. Ongoing over the last couple of weeks. Reports associated shortness of breath. Reports history of PE. She is not currently on anticoagulation GENERAL: Well-appearing, well-nourished, and in no acute distress. HEAD: Normocephalic, atraumatic. CHEST: Clear to auscultation. ?No respiratory distress. HEART: Regular rate and rhythm.? NEURO: ?Alert and oriented x3. Patient screened in triage and initial orders placed.? ?Additional care and disposition to be based upon?diagnostic testing and treatment. <Deann Barry PA-C - Last Filed: 04/25/25 14:35> History of Present Illness HPI narrative: 60-year-old female presenting for palpitations. Patient says she has been having intermittent palpitations over the last several weeks. When they happen she feels her heart is racing to become short of breath dizzy. It then resolved on their own. She does have a history of PEs or provoked by surgery is not currently on anticoagulation. She is currently asymptomatic. She denies fevers chills productive cough, shortness of breath at rest abdominal pain nausea vomiting diarrhea. <Hu Ramirez MD - Last Filed: 04/24/25 02:38> Related Data Home Medications: Home Medications ?Medication ?Instructions ?Recorded ?Confirmed ?Last Taken ?Type glipizide 10 mg tablet, extended 10 mg PO DAILY 02/07/24 Unknown History release 24 hr metformin 1,000 mg tablet 1,000 mg PO DAILY 12/26/20 0 02/07/24 Unknown History carvedilol 6.25 mg tablet 6.25 mg PO Q12H 01/26/21 Unknown History lacosamide 100 mg tablet 100 mg PO Q12H 01/26/2101/17 Unknown History levetiracetam 1,000 mg tablet 1,000 mg PO Q12H 1 02/07/24 Unknown History <Deann Barry PA-C - Last Filed: 04/25/25 14:35> Allergies/Adverse Reactions: Allergies Allergy/AdvReac Type Severity Reaction Status Date / Time Penicillins AdvReac Unknown Nausea Verified 04/23/25 18:52 <Deann Barry PA-C - Last Filed: 04/25/25 14:35> Review of Systems 2 Review of Systems: All systems reviewed & are unremarkable except as noted in HPI and below <Deann Barry PA-C - Last Filed: 04/25/25 14:35> [facility] Past Medical History Medical History: Medical History Kidney stones Morbid obesity with BMI of 40.0-44.9, adult Type 2 diabetes mellitus <Deann Barry PA-C - Last Filed: 04/25/25 14:35> Surgical History Surgical History: Surgical History History of bilateral carpal tunnel release History of section History of cholecystectomy History of hernia repair <Deann Barry PA-C - Last Filed: 04/25/25 14:35> Family History Family History: Family History Father Cancer Diabetes mellitus Mother Cancer Diabetes mellitus Hypertension <Deann Barry PA-C - Last Filed: 04/25/25 14:35> Social History Social History: Social History Social History: Lives in [place]. Works for the [employer] in [place]. Former smoker quit in 2012. No alcohol or illicit substance abuse. Her Alexis is her surrogate decision maker. Code status: Full code. Alcohol intake: current Alcohol use details: occasional <AVERY Martines Last Filed: 04/25/25 14:35> Exam 2 Narrative: APPEARANCE: No apparent distress. Head: atraumatic. EYES: EOMI, NOSE: Atraumatic NECK: Trachea midline RESPIRATORY: No increased rate of breathing clear to auscultation CARDIOVASCULAR: RRR, edema lower extremities-chronic ABDOMINAL: Non-distended soft nontender MUSCULOSKELETAl: No obvious deformities NEURO: Alert. Moving 4/4 extremities SKIN:: Warm, dry. Normal color PSYCHIATRIC: Normal affect <Hu Ramirez MD - Last Filed: 04/24/25 02:38> Course Vital Signs Vital signs: Vital Signs Temperature 97.2 F L 04/23/25 18:49 Pulse Rate 96 04/23/25 18:49 Respiratory Rate 18 04/23/25 18:49 Blood Pressure 173/94 H 04/23/25 18:49 Pulse Oximetry 98 04/23/25 18:49 Oxygen Delivery Room Air 04/23/25 18:49 Temperature 97.2 F L 04/23/25 18:49 Pulse Rate 94 04/24/25 02:15 Respiratory Rate 15 04/24/25 02:15 Blood Pressure 158/78 H 04/24/25 02:02 Pulse Oximetry 98 04/24/25 02:15 Oxygen Delivery Room Air 04/23/25 18:49 <Deann Barry PA-C - Last Filed: 04/25/25 14:35> Vital Signs Temperature 97.2 F L 04/23/25 18:49 Pulse Rate 96 04/23/25 18:49 Respiratory Rate 18 04/23/25 18:49 Blood Pressure 173/94 H 04/23/25 18:49 Pulse Oximetry 98 04/23/25 18:49 Oxygen Delivery Room Air 04/23/25 18:49 Temperature 97.2 F L 04/23/25 18:49 Pulse Rate 94 04/24/25 02:15 Respiratory Rate 15 04/24/25 02:15 Blood Pressure 158/78 H 04/24/25 02:02 Pulse Oximetry 98 04/24/25 02:15 Oxygen Delivery Room Air 04/23/25 18:49 <Hu Ramirez MD - Last Filed: 04/24/25 02:38> MDM - Arrhythmia/Palpitations MDM Narrative Medical decision making narrative: -Course: 60-year-old female presenting with intermittent palpitations. She was sent in by primary care physician there concern for PE. CTA did not reveal a pulmonary embolism. CT noted some mild ground-glass opacities. Patient does not have any fevers or cough or shortness of breath to indicate pneumonia. The rest of the workup including EKG, troponin x2 and laboratory studies was unremarkable. Patient was monitored on a traffic director stay without dysrhythmias. Viral swabs are negative. Patient will be discharged to follow-up with primary care physician for further management. given return precautions. -DDX includes but is not limited to: PE, dehydration, cardiac dysrhythmia, anxiety -Co-morbidities complicating care: History of PE <Hu Ramirez MD - Last Filed: 04/24/25 02:38> Lab Data Result diagrams: 04/23/25 19:08 04/23/25 19:08 <Deann Barry PA-C - Last Filed: 04/25/25 14:35> Labs: Lab Results 04/23/25 04/23/25 04/24/25 Range/Units 19:08 21:39 00:28 WBC 9.1 (4.5-10.0) K/mm3 RBC 4.36 (4.2-5.4) M/mm3 Hgb 12.6 (12.0-15.0) g/dL Hct 37.4 (37.0-47.0) % MCV 85.8 (80-100) fl MCH 28.9 (26-34) pg MCHC 33.7 (32-36) g/dl RDW 13.2 (11.5-14.5) % Plt Count 263 (150-375) k/mm3 MPV 9.2 (7.4-10.4) fl Immature Gran % (Auto) 0.3 (0-0.5) % Neut % (Auto) 56.7 (45.5-73.1) % Lymph % (Auto) 33.8 (18.3-44.2) % [place] % (Auto) 5.7 (2.6-8.5) % Eos % (Auto) 2.5 (0-4.4) % Baso % (Auto) 1.0 (0.2-1.2) % Lymph # (Auto) 3.07 (0.9-3.2) K/mm3 [place] # (Auto) 0.5 (0.1-0.6) K/mm3 Eos # (Auto) 0.2 (0-0.3) K/mm3 Baso # (Auto) 0.1 (0.0-0.1) K/mm3 Abs Immat Gran (auto) 0.03 (0.00-0.031) K/mm3 Absolute Neuts (auto) 5.2 (1.3-6.7) K/mm3 Absolute Nucleated RBC 0.000 (0.0-0.012) K/mm3 Nucleated RBC % 0.0 (0.0-0.2) % PT 13.2 (11.1-14.7) Seconds INR 1.0 APTT 26.6 (22.3-36.8) Seconds Sodium 133 L (137-145) mmol/L Potassium 4.4 (3.4-5.0) mmol/L Chloride 100 (98-107) mmol/L Carbon Dioxide 20 L (22-30) mmol/L Anion Gap 13 H (4-12) mmol/L BUN 15 (7-17) mg/dL Creatinine 0.73 (0.7-1.0) mg/dL Estim Creat Clear Calc 85 ml/min Estimated GFR > 60 (59 - ) Glucose 195 H (65-110) mg/dL Calcium 8.6 (8.4-10.2) mg/dL Total Bilirubin 0.6 (0.2-1.3) mg/dL AST 41 H (14-36) U/L ALT 42 H (6-35) U/L Alkaline Phosphatase 122 (38-126) U/L Troponin I < 0.012 < 0.012 (0.000-0.034) ng/mL Total Protein 7.6 (6.3-8.2) g/dL Albumin 4.2 (3.5-5.1) g/dL Lipase 44 (23-300) U/L Influenza A (RT-PCR) Negative (Negative) Influenza B (RT-PCR) Negative (Negative) RSV (RT-PCR) Negative (Negative) SARS-CoV-2 RNA (RT-PCR) Negative (Negative) <Deann Barry PA-C - Last Filed: 04/25/25 14:35> Lab Results 04/23/25 04/23/25 04/24/25 Range/Units 19:08 21:39 00:28 WBC 9.1 (4.5-10.0) K/mm3 RBC 4.36 (4.2-5.4) M/mm3 Hgb 12.6 (12.0-15.0) g/dL Hct 37.4 (37.0-47.0) % MCV 85.8 (80-100) fl MCH 28.9 (26-34) pg MCHC 33.7 (32-36) g/dl RDW 13.2 (11.5-14.5) % Plt Count 263 (150-375) k/mm3 MPV 9.2 (7.4-10.4) fl Immature Gran % (Auto) 0.3 (0-0.5) % Neut % (Auto) 56.7 (45.5-73.1) % Lymph % (Auto) 33.8 (18.3-44.2) % [place] % (Auto) 5.7 (2.6-8.5) % Eos % (Auto) 2.5 (0-4.4) % Baso % (Auto) 1.0 (0.2-1.2) % Lymph # (Auto) 3.07 (0.9-3.2) K/mm3 [place] # (Auto) 0.5 (0.1-0.6) K/mm3 Eos # (Auto) 0.2 (0-0.3) K/mm3 Baso # (Auto) 0.1 (0.0-0.1) K/mm3 Abs Immat Gran (auto) 0.03 (0.00-0.031) K/mm3 Absolute Neuts (auto) 5.2 (1.3-6.7) K/mm3 Absolute Nucleated RBC 0.000 (0.0-0.012) K/mm3 Nucleated RBC % 0.0 (0.0-0.2) % PT 13.2 (11.1-14.7) Seconds INR 1.0 APTT 26.6 (22.3-36.8) Seconds Sodium 133 L (137-145) mmol/L Potassium 4.4 (3.4-5.0) mmol/L Chloride 100 (98-107) mmol/L Carbon Dioxide 20 L (22-30) mmol/L Anion Gap 13 H (4-12) mmol/L BUN 15 (7-17) mg/dL Creatinine 0.73 (0.7-1.0) mg/dL Estim Creat Clear Calc 85 ml/min Estimated GFR > 60 (59 - ) Glucose 195 H (65-110) mg/dL Calcium 8.6 (8.4-10.2) mg/dL Total Bilirubin 0.6 (0.2-1.3) mg/dL AST 41 H (14-36) U/L ALT 42 H (6-35) U/L Alkaline Phosphatase 122 (38-126) U/L Troponin I < 0.012 < 0.012 (0.000-0.034) ng/mL Total Protein 7.6 (6.3-8.2) g/dL Albumin 4.2 (3.5-5.1) g/dL Lipase 44 (23-300) U/L Influenza A (RT-PCR) Negative (Negative) Influenza B (RT-PCR) Negative (Negative) RSV (RT-PCR) Negative (Negative) SARS-CoV-2 RNA (RT-PCR) Negative (Negative) <Hu Ramirez MD - Last Filed: 04/24/25 02:38> Discharge Plan Discharge Clinical Impression: Palpitations <Deann Barry PA-C - Last Filed: 04/25/25 14:35> Patient Disposition: Home <Deann Barry PA-C - Last Filed: 04/25/25 14:35> Condition: Stable <Deann Barry PA-C - Last Filed: 04/25/25 14:35> Instructions: Antibiotic Form, Heart Palpitations (DC) <Deann Barry PA-C - Last Filed: 04/25/25 14:35> Additional Instructions: You were seen in the emergency department for palpitations. Your workup here was reassuring. You do not have a pulmonary embolism. Your CT showed some ground-glass opacities in the lungs although you do not have any symptoms of pneumonia. If you develop worsening shortness of breath, fevers, or productive cough, please return to the ED for re-evaluation. Otherwise please follow-up with your primary care physician for further management. <Deann Barry PA-C - Last Filed: 04/25/25 14:35> Patient Language: Guatemalan <Deann Barry PA-C - Last Filed: 04/25/25 14:35> Prescriptions: No Action carvedilol 6.25 mg tablet 6.25 mg PO Q12H Rx Instructions: must administer with a meal/food lacosamide 100 mg tablet 100 mg PO Q12H levetiracetam 1,000 mg tablet 1,000 mg PO Q12H mupirocin 2 % ointment 1 applic topical BID-TID Qty: 22 3RF glipizide 10 mg tablet extended release 24hr 10 mg PO DAILY metformin 1,000 mg tablet 1,000 mg PO DAILY <Deann Barry PA-C - Last Filed: 04/25/25 14:35> Follow-up/Referrals: Gina,Linda English NP [Primary Care Provider, Unknown] - 2 Days Referral Note: palpitations <Deann Barry PA-C - Last Filed: 04/25/25 14:35> Stand Alone Forms: Work/School Release IP <Deann Barry PA-C - Last Filed: 04/25/25 14:35>
[2025-04-23 19:14] LABS: Hematocrit 37.4 % (37.0-47.0); Hemoglobin 12.6 g/dL (12.0-15.0); Immature Granulocyte Percent A 0.3 % (0-0.5); Lymphocytes Absolute Auto 3.07 K/mm3 (0.9-3.2); Mean Corpuscular HGB Conc 33.7 g/dl (32-36); Mean Corpuscular Hemoglobin 28.9 pg (26-34); Mean Corpuscular Volume 85.8 fl (80-100); Nucleated Red Blood Cells Absolute Auto 0.000 K/mm3 (0.0-0.012); Nucleated Red Blood Cells Perc 0.0 % (0.0-0.2); Platelet Count Result 263 k/mm3 (150-375); Red Blood Count 4.36 M/mm3 (4.2-5.4); White Blood Count 9.1 K/mm3 (4.5-10.0)
[2025-04-23 19:25] LABS: Alanine Aminotransferase 42 U/L (6-35); Albumin Level 4.2 g/dL (3.5-5.1); Alkaline Phosphatase 122 U/L (38-126); Anion Gap 13 mmol/L (4-12); Aspartate Amino Transferase 41 U/L (14-36); Bilirubin,Total 0.6 mg/dL (0.2-1.3); Blood Urea Nitrogen 15 mg/dL (7-17); Calcium 8.6 mg/dL (8.4-10.2); Carbon Dioxide 20 mmol/L (22-30); Chloride 100 mmol/L (98-107); Estimated CRCL calculation 85 ml/min; Estimated Glomerular Filt Rate > 60; Glucose 195 mg/dL (65-110); Lipase 44 U/L (23-300); Potassium 4.4 mmol/L (3.4-5.0); Sodium 133 mmol/L (137-145); Total Protein 7.6 g/dL (6.3-8.2)
[2025-04-23 19:33] LABS: INR 1.0; Prothrombin Time 13.2 Seconds (11.1-14.7)
[2025-04-23 19:34] LABS: Partial Thromboplastin Time 26.6 Seconds (22.3-36.8)
[2025-04-23 19:37] LABS: Troponin I < 0.012 ng/mL (0.000-0.034)
--- OUTSIDE RECORDS SUMMARY | 2025-04-23 21:16 | XMS_ITS | Data Portability ---
Author Organization S[facility] DARCYLazaro Edwards Address [address] [place] [address] Assessment No assessment recorded. Plan of Treatment Reminders Order Date Submit Date Provider Last Modified By Organization Details Last Modified Time Details Appointments None recorded . Lab TSH + free T4, serum 2014 015 [facility], [address], [address], [place], [address], 5 12:33:17 vitamin D, 25-hydro xy, total, serum 2014 015 [facility] [place] [facility], [address] [facility] [address], [address], [place], [address], 5 09:27:09 glucose, fingerst ick, blood 2014 015 [email or web address] In-Office Order, Internal Use Only DO Not Attach Compendium DO Not Attach Compendium, Do Not Delete/merge, [id number] 5 13:50:46 CBC 2014 015 GEOVANNA [facility], [address], [address], [place], [address], 5 13:37:07 lipid panel, serum 2014 015 GEOVANNA [facility], [address], [address], [place], [address], 5 13:37:06 albumin, urine 2014 015 GEOVANNA [facility], [address] [facility], [address], [place], [address], 5 17:27:58 HbA1c (hemoglo bin A1c), blood 2014 015 GEOVANNA [facility], [address] [facility], [address], [place], [address], 5 13:37:08 CMP, serum or plasma 2014 015 GEOVANNA [facility], [address] [facility], [address], [place], [address], 5 13:37:07 vitamin B12 + folate, serum or blood 2014 015 [email or web address] [facility], [address] [facility], [address], [place], [address], 5 09:27:[address] referral - family history colon cancer 2014 016 GEOVANNA Bermudez Yuritim , [address], [address], 6 13:56:24 Procedures None recorded . Surgeries None recorded . Imaging None recorded . Medication Orders glimepir devan 1 mg tablet [address] [facility] [address] [facility] [place], [address], 6 17:26:40 naproxen 500 mg tablet [address] [facility], [address] [place], [address], 5 13:51:29 metformi n 500 mg tablet [address] [facility], [address] [place], [address], 5 13:51:07 Patient TargetsNo targets recorded. Patient Instructions Encounter Date Encounter Id Patient Instructions Last Modified By Organization Details Last Modified Time 05/26/2015 [id number] medical record request* - records from feb 2015 admission yeimy Not available 06/04/2015 10:34:57 knee pain or injury: care instructions [email or web address] Not available 05/26/2015 14:22:17 Reason for Referral family history colon cancer Referring Physician: Татьяна Carrasco, Internal Medicine, Encounter Date: 05/26/2015 Results Created Date Observation Date Name Description Value Unit Range Abnormal Flag Note LastModifiedBy Organization Detail LastModifiedTime 05/26/20 15 05/26/2015 gluco se, finge rstic k, blood Blood Glucose: mg/dl with food 193 Not Available In-Office Order Internal Use Only DO Not Attach Compendium DO Not Attach Compendium, Do Not Delete/merge, [id number] 05/26/2015 12:43:54 06/09/20 15 06/10/2015 lipid panel , serum cholesterol, total 185 mg/dL 125-20 0 normal Not Available [facility] [address], [address], 06/10/2015 13:37:06 06/09/20 15 06/10/2015 lipid panel , serum HDL cholesterol 39 mg/dL > or = 46 low Not Available [facility] [address], [address], 06/10/2015 13:37:06 06/09/20 15 06/10/2015 lipid panel , serum triglyceride s 235 mg/dL <150 high Not Available [facility] [address] [place], [address], 06/10/2015 13:37:06 06/09/20 15 06/10/2015 lipid panel , serum LDL-choleste rol 99 mg/dL _(jacoby c) <130 normal [place] able range <100 mg/dL for patie nts with CHD or diabe latricia and <70 mg/dL for diabe tic patie nts with known heart disea se. Not Available [address] [place], [address], 06/10/2015 13:37:06 06/09/20 15 06/10/2015 lipid panel , serum chol/HDLC ratio 4.7 (calc ) < or = 5.0 normal Not Available [address], [address], 06/10/2015 13:37:06 06/09/20 15 06/10/2015 lipid panel , serum non HDL cholesterol 146 mg/dL _(jacoby c) normal Targe t for non-H DL goldie stero l is 30 mg/dL highe r than LDL goldie stero l targe t. Not Available [address], [address], 06/10/2015 13:37:06 06/09/20 15 06/10/2015 micro album in/cr eatin ine, mass ratio , urine creatinine, random urine 153 mg/dL 20-320 normal Not Available [address], [address], 06/10/2015 13:37:06 06/09/20 15 06/10/2015 micro album in/cr eatin ine, mass ratio , urine microalbumin 2.3 mg/dL see note: normal Refer ence Range : Refer ence Range Not estab lishe d Not Available [address], [address], 06/10/2015 13:37:06 06/09/20 15 06/10/2015 micro album in/cr eatin ine, mass ratio , urine microalbumin /creatinine ratio, random urine 15 mcg/m g_cre at <30 normal The ADA defin es abnor malit ies in album in excre tion as follo ws: Categ ory Resul t (mcg/ mg creat inine ) Edie l <30 Micro album inuri a 30-29 9 Clini jacoby album inuri a > OR = 300 The ADA recom mends that at least two of three speci mens colle cted withi n a 3-6 month perio d be abnor mal befor e consi charles g a patie nt to be withi n a diagn ostic categ ory. Not Available [address], [address], 06/10/2015 13:37:06 06/09/20 15 06/10/2015 CMP, serum or plasm a glucose 175 mg/dL 65-99 high Fasti ng refer ence inter chani Not Available [facility] [address], [address], 06/10/2015 13:37:06 06/09/20 15 06/10/2015 CMP, serum or plasm a urea nitrogen (BUN) 6 mg/dL 7-25 low Not Available [address], [address], 06/10/2015 13:37:06 06/09/20 15 06/10/2015 CMP, serum or plasm a creatinine 0.58 mg/dL 0.50-1 .10 normal Not Available [address], [address], 06/10/2015 13:37:06 06/09/20 15 06/10/2015 CMP, serum or plasm a eGFR non-afr. palauan 108 mL/mi n/1.7 3m2 > or = 60 normal Not Available [facility] [address], [address], 06/10/2015 13:37:06 06/09/20 15 06/10/2015 CMP, serum or plasm a eGFR 125 mL/mi n/1.7 3m2 > or = 60 normal Not Available [facility] [address], [address], 06/10/2015 13:37:06 06/09/20 15 06/10/2015 CMP, serum or plasm a BUN/creatini ne ratio 10 (calc ) 6-22 normal Not Available [address], [address], 06/10/2015 13:37:06 06/09/20 15 06/10/2015 CMP, serum or plasm a sodium 137 mmol/ L 135-14 6 normal Not Available [address], [address], 06/10/2015 13:37:06 06/09/20 15 06/10/2015 CMP, serum or plasm a potassium 4.6 mmol/ L 3.5-5. 3 normal Not Available [address], [address], 06/10/2015 13:37:06 06/09/20 15 06/10/2015 CMP, serum or plasm a chloride 100 mmol/ L 98-110 normal Not Available [address], [address], 06/10/2015 13:37:06 06/09/20 15 06/10/2015 CMP, serum or plasm a carbon dioxide 26 mmol/ L 19-30 normal Not Available [address], [address], 06/10/2015 13:37:06 06/09/20 15 06/10/2015 CMP, serum or plasm a calcium 9.2 mg/dL 8.6-10 .2 normal Not Available [address], [address], 06/10/2015 13:37:06 06/09/20 15 06/10/2015 CMP, serum or plasm a protein, total 6.8 g/dL 6.1-8. 1 normal Not Available [address], [address], 06/10/2015 13:37:06 06/09/20 15 06/10/2015 CMP, serum or plasm a albumin 4.1 g/dL 3.6-5. 1 normal Not Available [address], [address], 06/10/2015 13:37:06 06/09/20 15 06/10/2015 CMP, serum or plasm a globulin 2.7 g/dL_ (calc ) 1.9-3. 7 normal Not Available [address], [address], 06/10/2015 13:37:06 06/09/20 15 06/10/2015 CMP, serum or plasm a albumin/glob ulin ratio 1.5 (calc ) 1.0-2. 5 normal Not Available [address], [address], 06/10/2015 13:37:06 06/09/20 15 06/10/2015 CMP, serum or plasm a bilirubin, total 0.7 mg/dL 0.2-1. 2 normal Not Available [address], [address], 06/10/2015 13:37:06 06/09/20 15 06/10/2015 CMP, serum or plasm a alkaline phosphatase 90 U/L 33-115 normal Not Available [facility] [employer] [facility] [place] [address] [place], [address], 06/10/2015 13:37:06 06/09/20 15 06/10/2015 CMP, serum or plasm a AST 24 U/L 10-35 normal Not Available [address], [address], 06/10/2015 13:37:06 06/09/20 15 06/10/2015 CMP, serum or plasm a ALT 29 U/L 6-29 normal Not Available [facility] [place] [address] [place], [address], 06/10/2015 13:37:06 06/09/20 15 06/10/2015 CBC white blood cell count 7.7 thous and/u L 3.8-10 .8 normal Not Available [address], [address], 06/10/2015 13:37:07 06/09/20 15 06/10/2015 CBC red blood cell count 4.67 otto on/uL 3.80-5 .10 normal Not Available [address], [address], 06/10/2015 13:37:07 06/09/20 15 06/10/2015 CBC hemoglobin 13.5 g/dL 11.7-1 5.5 normal Not Available [address], [address], 06/10/2015 13:37:07 06/09/20 15 06/10/2015 CBC hematocrit 41.9 % 35.0-4 5.0 normal Not Available [address], [address], 06/10/2015 13:37:07 06/09/20 15 06/10/2015 CBC MCV 89.7 fL 80.0-1 00.0 normal Not Available [address], [address], 06/10/2015 13:37:07 06/09/20 15 06/10/2015 CBC MCH 28.9 pg 27.0-3 3.0 normal Not Available [address], [address], 06/10/2015 13:37:07 06/09/20 15 06/10/2015 CBC MCHC 32.2 g/dL 32.0-3 6.0 normal Not Available [address], [address], 06/10/2015 13:37:07 06/09/20 15 06/10/2015 CBC RDW 13.3 % 11.0-1 5.0 normal Not Available [facility] [address] [place], [address], 06/10/2015 13:37:07 06/09/20 15 06/10/2015 CBC platelet count 307 thous and/u L 140-40 0 normal Not Available [facility] [address], [address], 06/10/2015 13:37:07 06/09/20 15 06/10/2015 vitam in B12 + folat e, serum or blood vitamin B12 338 pg/mL 200-11 00 normal Pleas e Note: Altho ugh the refer ence range for vitam in B12 is 200-1 100 pg/mL , it has been repor darby that betwe en 5 and 10% of patie nts with value s betwe en 200 and 400 pg/mL may exper ience neuro psych iatri c and hemat ologi c abnor malit ies due to occul t B12 defic iency ; less than 1% of patie nts with value s above 400 pg/mL will have sympt oms. Not Available [facility] [address], [address], 06/10/2015 13:37:08 06/09/20 15 06/10/2015 vitam in B12 + folat e, serum or blood folate, serum 16.6 NG/mL normal Refer ence Range Low: <3.4 Borde rline : 3.4-5 .4 Edie l: >5.4 Not Available [facility] [address] [place], [address], 06/10/2015 13:37:08 06/09/20 15 06/10/2015 vitam in D, 25-hy droxy , total , serum vitamin D,25-oh,tota l,ia 8 NG/mL 30-100 low Vitam in D Statu s 25-OH Vitam in D: Defic iency : <20 ng/mL Insuf ficie ncy: 20 - 29 ng/mL Optim al: > or = 30 ng/mL For 25-OH Vitam in D testi ng on patie nts on D2-haq pplem entat ion and patie nts for whom quant itati on of D2 and D3 fract ions is requi red, the [employer] Assur eD(TM ) 25-OH VIT D, (D2,D 3), LC/MS /MS is recom [place] d: order code 15088 (jayjay ents >2yrs ). For more infor [place] cam on this test, go to: http: //[facility] trevizo stdia gnost ics.c om/fa q/FAQ 163 (This link is being provi ded for infor matgavi nal/e ducat ional purpo ses only. ) Not Available [facility] [address] [place], [address], 06/10/2015 13:37:08 06/09/20 15 06/10/2015 HbA1c (hemo globi n A1c), blood hemoglobin A1C 10.0 %_of_ total _HGB <5.7 high Accor ding to ADA guide lines , hemog lobin A1c <7.0% repre sents optim al contr ol in non-p regna nt diabe tic patie nts. Diffe rent metri cs may apply to speci fic patie nt javad [place] s. [facility] Medic al Care in Diabe latricia-2 013. Diabe latricia Care. 2013; 36:s1 1-s66 For the purpo se of mushtaq willg for the prese nce of diabe latricia <5.7% Consi stent with the absen ce of diabe latricia 5.7-6 .4% Consi stent with incre ased risk for diabe latricia (pred iabet es) >or=6 .5% Consi stent with diabe latricia This assay resul t is consi stent with diabe latricia melli tus. Curre ntly, no conse nsus exist s for use of hemog lobin A1c for diagn osis of diabe latricia for child bella. Not Available [facility] [address] [place], [address], 06/10/2015 13:37:08 Result Notes None recorded. Problems Name Problem SNOMED Code Status Onset Date Resolution Date Notes Provider Name and Address Organization Details Recorded Time Diabetes mellitus 22120204 Ritesh Carrasco MD Attn: Ja jose luis,[address] [facility], [place], [address], [facility] 6 17:26:39 Neuropathy due to diabetes mellitus 925489034 Ritesh Carrasco MD Attn: Ja jose luis,[address] [facility] [address], [place], [address], [facility] 6 17:26:39 Obesity 295733001 Ritesh Carrasco MD Attn: Gretelcyrus amaya,[address] [facility] [address], [place], [address], [facility] 6 17:26:39 Diarrhea 59949848 Ritesh Carrasco MD Attn: Ja jose luis,[address] [facility] [address], [place], [address], [facility] 5 13:50:44 Abnormal weight loss 218652497 Ritesh Carrasco MD Attn: Ja jose luis,[address] [facility] [address], [place], [address], [facility] 5 10:58:36 Steatotic liver disease 525521468 Ritesh Carrasco MD Attn: Ja jose luis,[address] [facility] [address], [place], [address], [facility] 6 17:26:39 Knee pain Ritesh Carrasco MD Attn: Ja jose luis,[address] [facility] [address], [place], [address], [facility] 5 13:50:44 Disorder of biliary tract 783644490 Ritesh Carrasco MD Attn: Ja amaya,[address] [facility] [address], [place], [address], [facility] 5 13:50:44 Problem Notes None recorded. Procedures Surgical History Date Name Laterality Status Provider Name and Address Organization Details Recorded Time Hernia Repair completed Lj Li MA [facility] 05/26/2015 12:43:53 Caesarean Section completed Lj Li MA [facility] 05/26/2015 12:43:53 Cholecystectomy completed Lj Li MA [facility] 05/26/2015 12:43:53 Imaging Results None recorded. Procedure Notes None recorded. Medical Equipment None Reported. Allergies Allergen ID Allergen Name Allergen Category Reaction Reaction Severity Criticality Documentation Date Start Date Code Code System Note Provider Name and Address Organization Details Recorded Time 42305 Product containin g penicilli n (product) medicatio n Not available Not available Not available 05/26/2015 34542 8001 SNOMED Lj wei MA null, [facility] 5 12:43:54 Medications Name Sig Start Date Stop Date Status Note LastModified by Organization Details LastModified Time metformin 500 mg tablet Take 2 tablets twice a day by oral route. active Not Available Not Available No t Available ibuprofen 800 mg tablet active Not Available Not Available No t Available hydrocodone 5 mg-acetaminop hen 325 mg tablet active Not Available Not Available Not Available ondansetron HCl 4 mg tablet active Not Available Not Available Not Available glimepiride 1 mg tablet Take 1 tablet every day by oral route. 016 active Not Available Not Available Not Avai lable prednisone 50 mg tablet active Not Available Not Available No t Available hyoscyamine 0.125 mg sublingual tablet active Not Available Not Available Not Available lorazepam 1 mg tablet active Not Available Not Available No t Available Vitamin D2 1,250 mcg (50,000 unit) capsule Take 1 capsule every week by oral route. active Not Available Not Available No t Available naproxen 500 mg tablet Take 1 tablet twice a day by oral route. active Not Available Not Available No t Available Vitals Date Recorded Body height Heart rate Body weight Body mass index (BMI) Body temperature Systolic And Diastolic Provider Name and Address Organization Details Last Updated DateTime 6 161.925 cm 86 /min 698272. 72183 g 40.7 kg/m2 97.9 [degF] 160/80 mm[Hg] Lj wei MA [facility] 6 16:43:49 Date Recorded Body weight Body height Body temperature Heart rate Body mass index (BMI) Systolic And Diastolic Provider Name and Address Organization Details Last Updated DateTime 5 991397. 49077 g 161.925 cm 97.9 [degF] 76 /min 39.4 kg/m2 140/86 mm[Hg] Lj wei MA [facility] 5 12:43:53 Social History Question Answer Notes LastModified by Organizat ion Details LastModified Time Tobacco Smoking Status Current Every Day Smoker Lj Li MA null, [facility] 05/26/2015 12:43:53 How Much Tobacco Do You Smoke? 1 PPD Information not available 05/26/2015 How Many Years Have You Smoked Tobacco? 15 Information not available 05/26/2015 Sex: Unknown Functional Status None recorded. Mental Status None recorded. Family History Relationship Description Onset Age of this Age Resolved Age Notes LastModified by Organization Details LastModified Time Mother Malignant neoplasm of breast [email or web address] Not available 06/19 16:43:50 Mother Diabetes mellitus [email or web address] Not available 06/19 16:43:50 Father Malignant neoplasm of colon [email or web address] Not available 06/19 16:43:50 Father Diabetes mellitus [email or web address] Not available 06/19 16:43:50 Sister Malignant neoplasm of breast [email or web address] Not available 06/19 16:43:50 Sister Diabetes mellitus [email or web address] Not available 06/19 16:43:50 Brother Diabetes mellitus [email or web address] Not available 06/19 16:43:50 Brother Hypertensive disorder [email or web address] Not available 06/19 16:43:50 Medical History Condition Response Diabetes Y Muscle, Joint, or Bone Problems Y Liver Disease Y GI Problems Y Gynecological HistoryNo gynecological history recorded. Obstetrics History GPAL:G 0 P 0 0 0 0 Past Encounters Encounter ID Performer Location Encounter Start Date Encounter Closed Date Diagnosis/Indication Diagnosis SNOMED-CT Code Diagnosis ICD10 Code Diagnosis IMO Codes Diagnosis Note [id number] MD Jana Garzon (Adult Med) [address] [place] [address] 05/26/2015 11:12:23 05/26/2015 14:39:34 Diabetes mellitus 36426249 E11.40 Neuropathy due to diabetes mellitus 628247703 E11.40 Obesity 244102717 E66.9 Diarrhea 17449237 R19.7 Abnormal weight loss 267 622748 R63.4 Steatotic liver disease 143547884 K76.0 Knee pain 47800700 M25.5 63 Family his tory of cancer of colon 395813900 Z80.0 Disorder o f biliary tract 925882392 K83.9 [id number] Татьяна Carrasco MD [facility] (Adult Med) [address] [place] [address] 07/07/2015 16:17:04 07/07/2015 17:26:01 Diabetes mellitus 03819268 E11.40 Pt to call with FBS levels in 2 weeks Neuropathy due to diabetes mellitus 421684252 E11.40 Steatotic liver disease 038137518 K76.0 Obesity 713402404 E66.9 Health Concerns Section Related Observation LastModified by Organization Detai ls LastModified Time None Recorded Concern Status LastModified by Organization Details LastModified Time None Recorded Advance Directives Directive None Recorded Payers Insurance Date Sequence Insurance Name Policy Number Policy Feliz Covered Member ID Feliz Member ID Guarantor Name 10/03/2015 1 [facility] ([place]) [id number] Melissa Story [id number] Zeenat Story Notes Date Note Type Note Provider Name and Address Organization Details Recorded Time 05/26/2015 text/html Diabetic on metformin. Has also had recurrent episodes of pancreatitis. Has had ERCP( 01/25) [facility] Bap. Stents placed and removed. Also had cholecystectomy. Pt also has hepatic steatosis. DM not properly controlled. Татьяна Carrasco MD Attn: Accounting,[address] [facility], [place], [address], [place] [facility] [place] 05/26/2015 13:52:50 OBGyn Episode No OBEpisode recorded.
--- OUTSIDE RECORDS SUMMARY | 2025-04-23 21:17 | XMS_ITS | Clinical Summary ---
Author Organization [facility] Address [address] [place] [address] Care Team Providers Care Smelter Charger Name Role Phone Silvana Stahl MD Unavailable [phone] Jonnie Stoner MD Primary Care Provider [phone] Source Comments [facility],non-owned Affiliates and Associated Physician Practices is amultiple site organization consisting of ambulatory clinics and hospital sitesin [place], [place], [place] and [place]. This disclosure is being madepursuant to the Care Everywhere program and may not contain all information available regarding this patient. Last updated 18.[facility] Allergies Active Allergy Reactions Criticality Noted Date Comments Contrast-Iodinated Agents For Ct/Other Anaphylaxis High 06/29/2015 EPIDURAL, SPINAL, VIPIN BLOCKS CAUSE CONVULSIONS AND ANAPHYLAXIS SHOCK Penicillins GI Discomfort,Unknown 06/29/2015 TOLERATED AMPILLICIN (12/25/20) WITHOUT SIDE EFFECTS Other reaction(s): Hives Reaction: HIVES Medications * Be aware that medications may not be up to date on this document. Alwaysverify current medications with the patient. glipiZIDE CR 24hr (GLUCOTROL XL) 10 MG tablet Take 10 mg by mouth 2 times daily 1 Active metFORMIN (GLUCOPHAGE) 500 MG tablet Take 500 mg by mouth 2 times daily Active fluticasone propionate (FLONASE) 50 MCG/ACT nasal spray [place] 2 sprays into each nostril 2 times daily Active gabapentin (NEURONTIN) 300 MG capsule Take 1 (one) capsule by mouth 3 times daily Pt usually only uses BID 1 Active amLODIPine (Norvasc) 10 MG tablet Take 10 mg by mouth once daily Active HYDROcodone-lizy taminophen ([place]) 5-325 MG tablet Take 1 (one) tablet by mouth 2 times daily 60 tablet 2 Active Additional Information Patient not taking.Reported on 05/02/2022 Active Problems Problem Noted Date Diagnosed Date Radial artery occlusion, 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 (F LUZONE; FLULAVAL; FLUARIX; AFLURIA QUADRIVALENT; 6MO+), 0.5 ML (IIV4) 04/17/2022 Social History Tobacco Use Types Packs/Day Years Used Date Smoking Tobacco: Former Cigarettes 0.1 27 1 995 - 2021 Smokeless Tobacco: Never Tobacco Cessation:Counseling Given: Not Answered Alcohol Use Standard Drinks/Week Comments Not Currently 0 (1 standard drink = 0.6 oz pur e alcohol) AUDIT-C Answer Date Recorded Q1: How often do you have a drink containing alcohol? Monthly or less 04/12/2022 Q2: How many drinks containi ng alcohol do you have on a typical day when you are drinking? Patient does not drink Q3: How often do you have si x or more drinks on one occasion? Never 04/12/2022 PHQ-2 Answer Date Recorded PHQ2 TOTAL SCORE 0 05/04/2022 Hunger Vital Sign Answer Date Recorded Within the past 12 months, y ou worried that your food would run out before you got the money to buy more. Never true 04/12/20 22 Within the past 12 months, t he food you bought just didn't last and you didn't have money to get more. Never true 04/12/2022 Comments No Sex and Gender Information Value Date Recorded Sex Assigned at Not on file Legal Sex Female 8:46 AM PRODUCT MANAGER MEDICAL DEVICE Gender Identity Not on file Sexual Orientation Not on file Last Filed Vital Signs Vital Sign Reading Time Taken Comments Blood Pressure 142/71 05/04/2022 2:58 PM PRODUCT MANAGER MEDICAL DEVICE Pulse 100 05/04/2022 2:58 PM PRODUCT MANAGER MEDICAL DEVICE Temperature 36.5 C (97.7 F) 05/04/2022 2:58 PM PRODUCT MANAGER MEDICAL DEVICE Respiratory Rate 18 04/17/2022 8:09 AM CDT Oxygen Saturation 93% 05/04/2022 2:58 PM PRODUCT MANAGER MEDICAL DEVICE Inhaled Oxygen Concentration - - Weight 108 kg (238 lb) 05/04/2022 2:58 PM PRODUCT MANAGER MEDICAL DEVICE Height 160 cm (5' 3) 05/04/2022 2:58 PM PRODUCT MANAGER MEDICAL DEVICE Body Mass Index 42.16 05/04/2022 2:58 PM PRODUCT MANAGER MEDICAL DEVICE Plan of Treatment Health Maintenance Due Date Last Done Comments COLOGUARD (AGES 45-75) - COLON CA SCREENING 1966 COLON MONITORING 1966 COLONOSCOPY - COLON CA SCREENING 1966 CT COLONOGRAPHY - COLON CA SCREENING 1966 Colorectal Cancer Screening 1966 FIT - COLON CA SCREENING 1966 FLEX SIG - COLON CA SCREENING 1966 MAMMOGRAM 1966 HEPATITIS C SCREENING 04/15/1984 DTAP/TDAP/TD VACCINES (1 - Tdap) 1985 HEPATITIS B VACCINE (1 of 3 - 19+ 3-dose series) 1985 PNEUMOCOCCAL VACCINE 50+ (1 of 2 - PCV) 1985 PAP SMEAR 1987 DIABETES-STATIN 2006 ZOSTER VACCINE (1 of 2) 2016 DIABETES-FOOT EXAM WITH MONOFILAMENT 04/07/2022 DIABETES-HGB A1C 07/13/2022 04/12/2022, 01/03/2021 DIABETES-SERUM CREATININE 04/15/20232021, 04/14/2022, 04/13/2022, Additional history exists DIABETES RETINOPATHY SCREENING 04/07/2024 04/07/2022 DEPRESSION SCREENING 06/18/2024 05/04/2022 DIABETES - URINE PROTEIN SCREENING 06/18/2024 COVID-19 VACCINE ( season) 2025 INFLUENZA VACCINE (#1) 2025 04/17/2022 HIV SCREENING Completed 01/03/2021 HIB VACCINE Aged Out No longer eligi ble based on patient's age to complete this topic HPV VACCINE Aged Out No longer eligi ble based on patient's age to complete this topic MENINGOCOCCAL (Group B) VACCINE SHARED DECISION-MAKING Aged Out No longer eligible based on patient's age to complete this topic MENINGOCOCCAL GROUPS A/C/Y/W VACCINE Aged Out No longer eligible based on patient's age to complete this topic Medical Devices Implanted Type Area Lens Inspector Device Identifier Shelf Expiration Date Model / Serial / Lot Patch Dura 3x3in Durepair Bvn Clgn Mtrx Implanted:Qty: 1 on 04/06/2022 by Berlin Barkley MD at [facility] Left: Cranial [employer] 06/17/2023 [id number] / / [id number] Slnt Dura Duraseal Pg Trilysine Amine 5 Implanted:Qty: 1 on 04/06/2022 by Berlin Barkley MD at [facility] Left: Cranial Integra [employer] Kalie 06/17/2023 [id number] / / [id number] Graft Tissue Drgn + Bvn Clgn Mtrx 3x3in - [id number] Implanted:Qty: 1 on 04/06/2022 by Berlin Barkley MD at [facility] Left: Cranial Integra [employer] 01/15/2025 [id number] / [id number] / [id number] Cover Bur Hl 13.5mm Spne Bnt Implanted:Qty: 1 on 04/06/2022 by Berlin Barkley MD at [facility] Left: Cranial Audra [employer]omet 19-1019 / / Plate 2 Hl Lopro Crnmxf 15mm Str Brennen Implanted:Qty: 1 on 04/06/2022 by Berlin Barkley MD at [facility] Left: Cranial Audra [employer]omet 19-1005 / / Plate 4 Hl Lopro Crnmxf 22mm Lng Str Implanted:Qty: 1 on 04/06/2022 by Berlin Barkley MD at [facility] Left: Cranial Audra Biomet 195 / / Screw 1.5mm 4mm Slf Drl Xdr Crnmxf Implanted:Qty: 8 on 04/06/2022 by Berlin Barkley MD at [facility] Left: Cranial Audra [employer]omet 91-2378 / / Procedures Procedure Name Priority Date/Time Associated Diagnosis Comments BASIC METABOLIC PANEL (CALCIUM TOTAL) Routine 04/15/2022 2:35 AM CDT HEMOGLOBIN A1C LAURA 04/12/2022 4:03 AM CDT HIV-1 HIV-2 ANTIBODY + HIV P24 AG PANEL Routine 01/03/2021 3:53 AM CDT from Last 3 Months or Most Recently Relevant to Health Maintenance Results * (ABNORMAL) BASIC METABOLIC PANEL (CALCIUM TOTAL) (04/15/2022 2:35 AM CDT) BUN 9 7 - 26 mg/dL 04/15/2022 3:10 AM CDT [facility] Creatinine 0.67 0.56 - 0.96 mg/dL 04/15/2022 3:10 AM CDT [facility] Sodium 137 136 - 145 mmol/L 04/15/2022 3:10 AM CDT [facility] Potassium 3.9 3.5 - 4.5 mmol/L 04/15/2022 3:10 AM CDT [facility] Chloride 105 98 - 107 mmol/L 04/15/2022 3:10 AM CDT [facility] CO2 22 22 - 29 mmol/L 04/15/2022 3:10 AM CDT [facility] Glucose 194(H) 70 - 115 mg/dL 04/15/2022 3:10 AM [facility] Calcium 8.3(L) 8.4 - 10.2 mg/dL 04/15/2022 3:10 AM [facility] Anion Gap 14 8 - 18 04/15/2022 3:10 AM [facility] BUN/Creatinine Ratio 13 7 - 23 04/15/2022 3:10 AM [facility] Osmolality Calculated 288 270 - 300 mOsm/kg 04/15/2022 3:10 AM [facility] eGFR by CKD-EPI >90 >=90 mL/min/1.7 3 m2 04/15/2022 3:10 AM [facility] Blood BLOOD SPECIMEN / Unknown Lab Venipuncture / Unknown 04/15/2022 2:35 AM CDT 04/15/2022 2:43 AM CDT Zi Apple AMORTIZATION CLERK-YARN DUMPER LAB - CHEMISTRY ORDERA BLES Final Result [facility] [address] [place] [address], [place] [phone] * (ABNORMAL) HEMOGLOBIN A1C (04/12/2022 4:03 AM CDT) Hemoglobin A1c 8.4(H) <=5.6 % 04/12/2022 8:53 AM [facility] Estimated Average Glucose 194 mg/dL 04/12/2022 8:53 AM [facility] Comment: HbA1c Interpretation: Normal : < 5.7% Pre-diabetes: 5.7-6.4% Diabetes: Equal to or greater than 6.5% Test results diagnostic of diabetes should be repeated for confirmation. Treatment target values recommended by ADA and other clinical organizations should be used to evaluate metabolic control in patients. Reference: [place] Diabetes Association, Standards of Care in Diabetes -2020 In patients 70 years and older consider HbA1c target range of 7.0-7.5% (Reference: Nickolas Arroyo et al. JAMDA. 2012) The Sebia assay for the measurement of HbA1c is a National Glycohemoglobin Standardization Program (NGSP) certified method. Blood BLOOD SPECIMEN / Unknown Venipuncture / Unknown 04/12/2022 4:03 AM CDT 04/12/2022 4:08 AM CDT us Zi Apple AMORTIZATION CLERK-YARN DUMPER LAB - CHEMISTRY ORDERA BLES Final Result Performing Organization Address City/[facility]/ZIP Co de Phone Number [address] [address], [place] [phone] * HIV-1 HIV-2 ANTIBODY + HIV P24 AG PANEL (01/03/2021 3:53 AM CDT) HIV Antigen/Antibod y 1 & 2 Non-reacti ve Non-react scar 01/03/2021 5:00 AM CDT [facility] Comment:Neither HIV-1 p24 An tigen nor HIV-1/HIV-2 Antibodies are detected. Blood BLOOD SPECIMEN / Unknown Lab Venipuncture / Unknown 01/03/2021 3:53 AM CDT 01/03/2021 4:26 AM CDT us Jenny Tariq PA-C LAB - CHEMISTRY ORDERABLES Final Result Performing Organization Address [facility] Co de Phone Number [address] [address], [place] [phone] from Last 3 Months or Most Recently Relevant to Health Maintenance Insurance [facility] Advance Directives * Full Code (Latest Code Status on File) Date Activated Date Inactivated Comments 04/11/2022 2:26 PM 04/17/2022 2:03 PM * Full Code Date Activated Date Inactivated Comments 04/06/2022 11:00 AM 04/09/2022 5:44 PM * Full Code Date Activated Date Inactivated Comments 01/01/2021 9:14 PM 01/13/2021 1:40 PM Care Teams Smelter Charger Relationship Specialty Start Date End Date Jonnie Stoner MD [address] [address] PCP - General 08/16/21 Silvana Stahl MD [address] OF NEUROLOGY [place], [place] Resident Neurology 02/04/21
--- OUTSIDE RECORDS SUMMARY | 2025-04-23 21:17 | XMS_ITS | Clinical Summary ---
Author Organization [facility] Address [address] [place] [address] Care Team Providers Care Physicist Solid Earth Name Role Phone Unavailable Primary Care Provider Unavailabl e Social History Tobacco Use Types Packs/Day Years Used Date Smoking Tobacco: Never Assessed Comments Unknown Sex and Gender Information Value Date Recorded Sex Assigned at Not on file Legal Sex Female 7:33 PM CDT Gender Identity Not on file Sexual Orientation Not on file Plan of Treatment Health Maintenance Due Date Last Done Comments Cervical Cancer Screening Pa p Smear (Age 30 to 64) Every 3 Years 1966 Colorectal Cancer Screening Colonoscopy (10 Years) 1966 Annual Physical 1969 Hepatitis C 1984 DTaP, Tdap and Td Vaccines ( 1 - Tdap) 1985 Hepatitis B Vaccines (1 of 3 - 19+ 3-dose series) 1985 Cervical Cancer Screening Pa p with HPV Testing (Age 30 to 64) Every 5 Years 1996 Cervical Cancer Screening with HPV 1996 Mammogram Screening 2006 Pneumococcal Vaccine: 50+ Ye ars (1 of 1 - PCV) 2016 Zoster Vaccines (1 of 2) 2016 COVID-19 Vaccine (2024-2 6 season) 2025 Influenza Adult (#1) 2025 Hepatitis A Vaccines Aged Out No long er eligible based on patient's age to complete this topic Meningococcal B Vaccine Aged Out No l onger eligible based on patient's age to complete this topic Meningococcal Vaccine Aged Out No johnathan darío eligible based on patient's age to complete this topic RSV Immunizations Under 20 Months Aged Out No longer eligible based on patient's age to complete this topic
--- OUTSIDE RECORDS SUMMARY | 2025-04-23 21:17 | XMS_ITS | Encounter Summary ---
Author Organization [facility] Address [address] [facility] [place] [address] Care Team Providers Care Bull Wheel Worker Name Role Phone Silvana Stahl MD Unavailable [phone] Jonnie Stoner MD Primary Care Provider [phone] Encounter Details Date Type Department Care Team (Late st Contact Info) Description 04/18/2022 Telephone [facility]ORDINATION [address] [place] [address] Eneida Wilkinson, RN Social History Tobacco Use Types Packs/Day Years Used Date Smoking Tobacco: Former Cigarettes 0.1 27 1 995 - 2021 Smokeless Tobacco: Never Alcohol Use Standard Drinks/Week Comments Not Currently [...] more drinks on one occasion? 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 Answer Date of Assessment Author No 04/12/2022 2:01 PM Rema Patel RN * Is person blind or have serious difficulty seeing? Answer Date of Assessment Author No 04/12/2022 2:01 PM Rema Patel RN * Does person have serious difficulty walking/climbing stairs? Answer Date of Assessment Author No 04/12/2022 2:01 PM Rema Patel RN * Does person have difficulty dressing/bathing? Answer Date of Assessment Author No 04/12/2022 2:01 PM Rema Patel RN * Does person have difficulty doing errands alone? Answer Date of Assessment Author Yes 04/12/2022 2:01 PM Rema Patel RN documented as of this encounter Mental Status * Does person have difficulty concentrating/remembering/making decisions? Answer Entry Date Author No 04/12/2022 2:01 PM Rema Patel RN documented in this encounter Plan of Treatment Not on file documented as of this encounter Visit Diagnoses Not on filedocumented in this encounter Care Teams Bull Wheel Worker Relationship Specialty Start Date End Date Jonnie Stoner MD [address] [facility] [address] [place] [address] PCP - General 08/16/21 Silvana Stahl MD [address] OF [place]UROLOGY [place], [place] Resident Neurology 02/04/21 documented as of this encounter
--- OUTSIDE RECORDS SUMMARY | 2025-04-23 21:17 | XMS_ITS | Encounter Summary ---
Author Organization [facility] Address [address] [facility] [place] [address] Care Team Providers Care Information Clerk Brokerage Name Role Phone Silvana Stahl MD Unavailable [phone] Jonnie Stoner MD Primary Care Provider [phone] Encounter Details Date Type Department Care Team (Late st Contact Info) Description 04/07/2022 Ophth Exam [facility] [address] [place] [id number] Pi, [place] [address] [facility] [address] [place] [address] Social History Tobacco Use Types Packs/Day Years Used Date Smoking Tobacco: Former Cigarettes 0.1 27 1 5 - 2021 Smokeless Tobacco: Never Alcohol Use Standard Drinks/Week Comments Not Currently 0 (1 standard drink = 0.6 oz pur e alcohol) AUDIT-C Answer Date Recorded Q1: How often do you have a drink containing alcohol? Never 04/11/2022 Q2: How many drinks containi ng alcohol do you have on a typical day when you are drinking? Patient does not drink 10/25/202 2 Q3: How often do you have si x or more drinks on one occasion? Never 04/11/2022 Hunger Vital Sign Answer Date Recorded Within the past 12 months, y ou worried that your food would run out before you got the money to buy more. Never true 04/07/20 22 Within the past 12 months, t he food you bought just didn't last and you didn't have money to get more. 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 No 04/07/2022 7:03 AM Radha Torres RN Is person blind or have seri ous difficulty seeing? No 04/07/2022 7:03 AM Radha Torres RN Does person have serious difficulty walking/climbing stairs? No 04/07/2022 7:03 AM Radha Torres RN Does person have difficulty dressing/bathing? No 04/07/2022 7:03 AM Radha Torres RN Does person have difficulty doing errands alone? Yes 04/07/2022 7:03 AM Radha Torres RN Does person have difficulty concentrating/remembering/making decisions? No 04/07/2022 7:03 AM Radha Torres RN * Question Answer Date of Assessment Author Q1: How often do you have a drink containing alcohol? Never 04/07/2022 7:03 AM Radha Torres RN Q2: How many drinks containing alcohol do you have on a typical day when you are drinking? Patient does not drink 04/07/2022 7:03 AM Radha Torres RN Q3: How often do you have six or more drinks on one occasion? Never 04/07/2022 7:03 AM Radha Torres RN * AUDIT-C Score Answer Date of Assessment Author 0 04/07/2022 7:03 AM Radha Torres RN * Is person deaf or have serious hearing difficulty? Answer Date of Assessment Author No 04/07/2022 7:03 AM Radha Torres RN * Is person blind or have serious difficulty seeing? Answer Date of Assessment Author No 04/07/2022 7:03 AM Radha Torres RN * Does person have serious difficulty walking/climbing stairs? Answer Date of Assessment Author No 04/07/2022 7:03 AM CDT Radha Mock RN * Does person have difficulty dressing/bathing? Answer Date of Assessment Author No 04/07/2022 7:03 AM Radha Torres RN * Does person have difficulty doing errands alone? Answer Date of Assessment Author Yes 04/07/2022 7:03 AM Radha Torres RN documented as of this encounter Mental Status * Does person have difficulty concentrating/remembering/making decisions? Answer Entry Date Author No 04/07/2022 7:03 AM Radha Torres RN documented in this encounter Plan of Treatment Not on file documented as of this encounter Visit Diagnoses Not on filedocumented in this encounter Additional Health Concerns Infection Onset Date Last Indicated Resolved Time COVID-19 Under Investigation 04/11/2022 04/11/2022 04/11/2022 1:15 PM CDT documented as of this encounter Care Teams Information Clerk Brokerage Relationship Specialty Start Date End Date Jonnie Stoner MD [address] [facility] [address] [place] [address] PCP - General 08/16/21 Silvana Stahl MD [address] OF NEUROLOGY [place], [place] Resident Neurology 02/04/21 documented as of this encounter
--- OUTSIDE RECORDS SUMMARY | 2025-04-23 21:17 | XMS_ITS | Continuity of Care Document ---
Author Organization [place] - [facility] [employer], [facility] [place] Address [address] [place] [address] Assessment No assessment recorded. Plan of Treatment Reminders Order Date Submit Date Provider Last Modified By Organization Details Last Modified Time Details Appointments Sick/A cute 2024 08:15A Sara Garcia NP Not available Not available Not available Follow Up 30 2025 09:00A Sara Garcia NP Not available Not available Not available Lab CHAPO (antin uclear antibo dies) screen , serum 2024 025 [facility], [address], [place], [address], 04/23/2025 09:56:55 rf (rheum atoid factor ), serum 2024 025 [email or web address] [facility], [address], [place], [address], 04/23/2025 09:57:18 ESR (eryth rocyte sedime ntatio n rate), blood 2024 025 [email or web address], [address], [place], [address], 04/23/2025 09:57:31 lipid panel, serum 2024 025 [facility], [address], [place], [address], 04/23/2025 09:58:19 CBC w/ auto diff 2024 025 [email or web address] [facility], [address], [place], [address], 04/23/2025 09:58:43 HbA1c (hemog lobin A1c), blood 2024 025 [email or web address] [employer] [facility], [address], [place], [address], 04/23/2025 09:57:45 CMP, serum or plasma 2024 025 [email or web address] [employer] [facility], [address], [place], [address], 04/23/2025 09:58:01 Referral None record ed. Procedures None record ed. Surgeries None record ed. Imaging electr ocardi ogram 2024 [email or web address] [address], [place], [address], 04/23/2025 09:52:04 XR, chest, 2 view 2024 [facility], [address] [place] [address], [address], 04/23/2025 12:36:56 US, abdome n, comple te 2024 [facility], [facility] [address], [place], [address], 04/23/2025 12:44:52 Medication Orders valacy clovir 1 gram tablet 2024 [facility], [address] [facility], [place], [address], 04/23/2025 09:17:34 Patient TargetsNo targets recorded. Patient InstructionsNo instructions recorded. Reason for Referral None Reported. Results Created Date Observation Date Name Description Value Unit Range Abnormal Flag Note LastModifiedBy Organization Detail LastModifiedTime 04/23/20 25 elect jay jonesgr am No observ ation record ed. [email or web address] [facility] [address], [place], [address], 04/23/2025 09:16:51 Result Notes None recorded. Problems Name Problem SNOMED Code Status Onset Date Resolution Date Notes Provider Name and Address Organization Details Recorded Time Mammograph y abnormal 804188149 Active Not Available [facility] 3 14:19:52 Steatotic liver disease 570965798 Active Not Available [facility] 3 14:19:53 Biliary dyskinesia 695508137 Active Not Available [facility] 3 14:19:53 Hypertrigl yceridemia 937402434 Active Not Available [facility] 3 14:19:53 Type 2 diabetes mellitus without complicati on 264321072 Active Not Available [facility] 3 14:19:53 Obesity 350433238 Active Not Available [facility] 3 14:19:53 Essential hypertensi on 62824588 Active JORDEN Kumar [address], [place], [address] , [facility] [employer] [facility] [employer] [facility] 5 10:09:29 Diabetes mellitus 19782836 Active JORDEN Kumar [address], [address], [place], [address] , [facility] [employer] [facility] 5 10:09:21 Pancreatit is 00065332 Active 2013 Not Available [facility] 3 14:19:53 Hyperglyce memo due to type 2 diabetes mellitus 3178762273151 09 Active 2019 Not Available [employer] 3 14:19:53 Diabetic peripheral neuropathy 703385296 Active 2019 Not Available [facility] 3 14:19:53 Memory impairment 162689492 Active 2023 Zi Skinner, [employer] [address], [place], [address] , [employer] 4 15:21:32 Disturbanc e in speech 00577578 Active 2023 MAGGY Calzada-Gareth [address], [place], [address] , [employer] [place] [facility] [employer] [facility] 4 15:30:12 Dyspnea 042714658 Active 2023 MAGGY Calzada-Gareth [address], [place], [address] , [employer] [facility] [employer] 4 15:39:04 Persistent cough 677223438 Active 2023 MAGGY Calzada-Gareth [address], [place], [address] , [employer] [facility] [employer] 4 15:02:19 Upper respirator y infection 30837640 Active 2023 JORDEN Calzada [address], [place], [address] , [employer] 4 15:03:49 Impairment of balance 452164867 Active 2023 JORDEN Calzada [address], [place], [address] , [employer] [facility] 4 08:23:58 Gastritis 5924767 Active 2024 JORDEN Kumar [address], [place], [address] , [employer] 5 08:59:48 Neuropathy 640116613 Active 2024 JORDEN Kumar [address], [place], [address] , [employer] [facility] 5 09:04:48 Acute abdominal pain 609143998 Active 2024 JORDEN Kumar [address], [place], [address] , [employer] [facility] 5 09:10:06 Herpes zoster 6342381 Active 2024 JORDEN Kumar [address] [facility], [facility] [address], [place], [address] , [employer] [facility] 5 09:10:58 Intermitte nt palpitatio ns 704299181 Active 2024 JORDEN Kumar [address] [facility], [address] [address], [place], [address] , [employer] 5 09:16:46 Problem Notes None recorded. Procedures Surgical History Date Name Laterality Status Provider Name and Address Organization Details Recorded Time Tubal Ligation completed Jennifer Garcia MA [place] [employer] [facility] [employer] [facility] 09/23/2024 09:40:42 delivery completed Jennifer Garcia MA [facility] [employer] [facility] 09/23/2024 09:40:53 Carpal tunnel surgery completed Jennifer Garcia MA [employer] [facility] [employer] [facility] 09/23/2024 09:41:02 Hernia Repair completed Jennifer Garcia MA [facility] [employer] [facility] 09/23/2024 09:41:09 Cholecystectomy completed Jennifer Garcia MA [place] [employer] [facility] [employer] [facility] 09/23/2024 09:41:20 Brain Surgery completed Jennifer Garcia MA [facility] [employer] [facility] 09/23/2024 09:41:30 Imaging Results None recorded. Procedure Notes None recorded. Medical Equipment None Reported. Allergies Allergen ID Allergen Name Allergen Category Reaction Reaction Severity Criticality Documentation Date Start Date Code Code System Note Provider Name and Address Organization Details Recorded Time 64010 Product containin g penicilli n (product) medicatio n Not available Not available Not available 08/16/2022 36263 8001 SNOMED GI upset , cause s vomit ing Not Available [facility] 14:23:07 Medications Name Sig Start Date Stop Date Status Note LastModified by Organization Details LastModified Time metformin 500 mg tablet TAKE 1 TABLET BY MOUTH TWICE DAILY 12/21 completed Not Available Not Available Not Available carvedilo l 6.25 mg tablet TAKE 1 TABLET BY MOUTH TWICE DAILY WITH MORNING MEAL AND WITH EVENING MEAL active Not Available Not Available No t Available azithromy maria g 250 mg tablet TAKE 2 TABLETS (500 MG) BY ORAL ROUTE ONCE DAILY FOR 1 DAY THEN 1 TABLET (250 MG) BY ORAL ROUTE ONCE DAILY FOR 4 DAYS 07/28 completed Not Available Not Available Not Available valacyclo vir 1 gram tablet Take 1 tablet 3 times a day by oral route for 7 days. 2024 active Not Available Not Available Not Avai lable hydrocodo ne 5 mg-acetam inophen 325 mg tablet 08/27 completed Not Available Not Available Not Available glipizide ER 10 mg tablet, extended release 24 hr Take 1 tablet twice a day by oral route 2024 active Not Available Not Available Not Avai lable ondansetr on HCl 4 mg tablet 07/28 completed Not Available Not Available Not Available prednison e 20 mg tablet Take 2 tablets every day by oral route for 5 days. 07/28 completed Not Available Not Available Not Available amlodipin e 5 mg tablet active Not Available Not Available Not Available omeprazol e 40 mg capsule,d elayed release TAKE 1 CAPSULE BY MOUTH ONCE DAILY active Not Available Not Available No t Available tramadol 50 mg tablet TAKE 1 TABLET BY MOUTH EVERY 8 HOURS NEEDED 07/28 completed Not Available Not Available Not Available oxycodone -acetamin ophen 5 mg-325 mg tablet active Not Available Not Available Not Available ofloxacin 0.3 % ear drops INSTILL 5 DROPS INTO LEFT EAR THREE TIMES DAILY FOR 3 DAYS 07/28 completed Not Available Not Available Not Available famotidin e 20 mg tablet TAKE 1 TABLET BY MOUTH TWICE DAILY active Not Available Not Available No t Available amlodipin e 10 mg tablet TAKE 1 TABLET BY MOUTH ONCE DAILY 2024 active Not Available Not Available Not Avai lable cephalexi n 500 mg capsule TAKE 1 CAPSULE BY MOUTH EVERY 6 HOURS FOR 10 DAYS 07/28 completed Not Available Not Available Not Available metformin 1,000 mg tablet TAKE 1 TABLET BY MOUTH TWICE DAILY 08/23 completed side effects Not Available Not Available Not Available prednison e 50 mg tablet 01/12 completed Not Available Not Available Not Available hyoscyami ne 0.125 mg sublingua l tablet 05/20 completed Not Available Not Available Not Available gabapenti n 300 mg capsule TAKE 1 CAPSULE BY MOUTH THREE TIMES DAILY 09/23 completed Not Available Not Available Not Available lisinopri l 5 mg tablet TAKE 1 TABLET BY MOUTH ONCE DAILY 07/28 completed Not Available Not Available Not Available gabapenti n 100 mg capsule TAKE 1 CAPSULE BY MOUTH THREE TIMES DAILY active Not Available Not Available No t Available lorazepam 1 mg tablet 01/12 completed Not Available Not Available Not Available cefdinir 300 mg capsule Take 1 capsule every 12 hours by oral route for 10 days. 07/28 completed Not Available Not Available Not Available fluticaso ne propionat e 50 mcg/actua tion nasal spray,jun pension [place] 1 spray every day by intranas al route. 07/28 completed Not Available Not Available Not Available metformin ER 500 mg tablet,ex tended release 24 hr TAKE 2 TABLETS BY MOUTH TWICE DAILY WITH MEALS FOR 90 DAYS active Not Available Not Available No t Available Sudafed 12 Hour 120 mg tablet,ex tended release Take 1 tablet every 12 hours by oral route. 07/28 completed Not Available Not Available Not Available neomycin- polymyxin -hydrocor t 3.5 mg-10,000 unit/mL-1 % ear drops,jun p INSTILL 4 DROPS INTO AFFECTED EAR(S) INTO AFFECTED EAR(S) THREE TIMES DAILY active Not Available Not Available No t Available Ciprodex 0.3 %-0.1 % ear drops,jun pension INSTILL 4 DROPS INTO AFFECTED EAR(S) TWICE DAILY FOR 7 DAYS 07/28 completed Not Available Not Available Not Available lancing device active Not Available Not Available Not Available Alcohol Prep Pads active Not Available Not Available No t Available levetirac etam 1,000 mg tablet TAKE 1 & 1 2 (ONE & ONE HALF) TABLETS BY MOUTH TWICE DAILY 09/23 completed Not Available Not Available Not Available Januvia 100 mg tablet Take 1 tablet every day by oral route. 01/12 completed Not Available Not Available Not Available [employer] Choice Voice Plus Test strips active Not Available Not Available Not Available One[employer] Choice Level 2 Control solution active Not Available Not Available Not Available Vimpat 100 mg tablet TAKE 1 TABLET BY MOUTH TWICE DAILY 07/28 completed Not Available Not Available Not Available lancets 30 gauge active Not Available Not Available Not Available Ozempic 0.25 mg or 0.5 mg (2 mg/1.5 mL) subcutane ous pen injector Inject 0.25 mg every week by subcutan eous route. 09/04 completed Not Available Not Available Not Available Ozempic 0.25 mg or 0.5 mg (2 mg/3 mL) subcutane ous pen injector Inject 0.5 mg every week by subcutan eous route. 01/29 completed Not Available Not Available Not Available Vitals Date Recorded Body height Body mass index (BMI) Body weight Body temperature Heart rate Oxygen saturation Oxygen saturation in Arterial blood by Pulse oximetry Systolic And Diastolic Provider Name and Address Organization Details Last Updated DateTime 5 161.29 cm 42.4 kg/m2 313268. 95 g 97 [degF] 100 /min 98 % 98 % 160/84 mm[Hg] BRENDAN Bell [employer] 08:57:58 Social History Question Answer Notes LastModified by Organizat ion Details LastModified Time Tobacco Smoking Status Former Smoker REYES Barlow [employer] 09/23/2024 09:39:40 Do You Have An Advance Directive? No [id number] Information not available 08/16/2022 What Is Your Level Of Caffeine Consumption? Moderate Information not available 09/23/2024 In The 14 Days Before Symptom Onset, Have You Had Close Contact With A Laboratory-confirm ed COVID-19 While That Case Was Ill? No [id number] Information not available 08/16/2022 In The 14 Days Before Symptom Onset, Have You Had Close Contact With A Person Who Is Under Investigation For COVID-19 While That Person Was Ill? No [id number] Information not available 08/16/2022 What Type Of Diet Are You Following? REGULAR [id number] Information not available 08/16/2022 Have There Been Any Changes To Your Family Or Social Situation? No Information no t available 09/23/2024 When Did You Quit Smoking? 11-15yearssin celastcigaret te Information not available 09/23/2024 Do You Use Insect Repellent Routinely? No Information not available 09/23/2024 Where Do You Live? Trailer Inform ation not available 09/23/2024 Do You Have A Medical Power Of Rock Crusher Operator? No [id number] Information not available 08/16/2022 What Was The Date Of Your Most Recent Tobacco Screening? 09/23/2024 Information not available 09/23/2024 How Many Children Do You Have? 2 Information not available 09/23/2024 Do You Have Any Pets? Yes Information not available 09/23/2024 What Is Your Relationship Status? Information not available 09/23/2024 Do You Use Your Seat Belt Or Car Seat Routinely? Yes Information not available 09/23/2024 Do You Have Smoke And Carbon Monoxide Detectors In Your Home? Yes Information not available 09/23/2024 At What Age Did You Start Smoking Tobacco? 36 Information not available 09/23/2024 Are You Passively Exposed To Smoke? No Information no t available 09/23/2024 Are There Any Smokers In Your House? No Information not available 09/23/2024 How Much Tobacco Do You Smoke? 1 PPD Information not available 09/23/2024 Do You Participate In Social Media? Yes Information not available 09/23/2024 Do You Use Sunscreen Routinely? No Information not available 09/23/2024 Have You Recently Traveled Abroad? No [id number] Information not available 08/16/2022 Are You Currently In School? No Information not available 09/23/2024 Do You Have Any Dietary Restrictions? No [id number] Information not available 08/16/2022 Sex: Unknown Functional Status Question Answer Note LastModified by Organizat ion Details LastModified Time Do you use any illicit or recreational drugs? No Information not available 09/23/2024 Do you or have you ever used any other forms of tobacco or nicotine? No Information not available 09/23/2024 What is your level of alcohol consumption? None [id number] Information not available 08/16/2022 Are you currently employed? 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 Moderate Information not available 09/23/2024 Mental Status Question Answer Note LastModified by Organization D etails LastModified Time Do you feel stressed (tense, restless, nervous, or anxious, or unable to sleep at night)? [id number] Information not available 09/23/2024 Family History Relationship Description Onset Age of this Age Resolved Age Notes LastModified by Organization Details LastModified Time Unspecified Relation Diabetes mellitus [email or web address] Not available 2024 09:37:27 Mother Malignant neoplasm of breast [email or web address] Not available 2024 09:37:40 Father Malignant neoplasm of colon [email or web address] Not available 2024 09:37:54 Father Malignant neoplasm of lung [email or web address] Not available 2024 09:38:07 Paternal Grandmother Heart disease [email or web address] Not available 2024 09:38:28 Medical History Condition Response SLEEP APNEA N MRSA N ALLERGIES/HAYFEVER N LUNG DISEASE/DISORDER N INSOMNIA N RADIATION / CHEMOTHERAPY N COPD N HIGH CHOLESTEROL / HYPERLIPIDEMIA N HYPERTHYROIDISM N BLOOD DISEASES N EAR OR HEARING PROBLEMS N HYPOTHYROIDISM N DEPRESSION (INCLUDING POST ) N HAVE YOU BEEN HOSPITALIZED OR SEEN IN [facility] IN THE PAST YEAR ? N STROKE/TIA N ULCERS N OBESITY N HISTORY WITH COMPLICATIONS WITH ANESTHES IA ? Y ANEURYSM N USE OF BLOOD THINNERS N NO SIGNIFICANT PAST MEDICAL HISTORY N DIABETES, TYPE N PARATHYROID DISEASE N ENT N SEASONAL ALLERGIES Y HEARTBURN / REFLUX N HEPATITIS / LIVER DISEASE N SLEEP DISORDER N SEIZURES/EPILEPSY N HEADACHES/MIGRAINES Y CHF N PACEMAKER N DIZZINESS N HEART DISEASE/HEART PROBLEMS N AIDS/HIV N FRACTURES N HYPERTENSION Y CANCER: SPECIFY N TOURETTE'S N BLOOD TRANSFUSION N ANESTHESIA COMPLICATIONS N ANEMIA/BLOOD DISORDER N CHRONIC EAR INFECTIONS Y TUBERCULOSIS N Gynecological History Statement/Question Response How many live births 2 Date of Last Colonoscopy Most Recent Bone Density Date of LMP Date of Last Pap Smear Current Control Method Menopause Most Recent Mammogram Obstetrics History GPAL:G 2 P 2 0 0 2 Type Value Multiple Births 0 Full Term 2 Induced 0 Spontaneous 0 Premature 0 Living 2 Ectopics 0 Total 2 Immunizations Vaccine Type Date Status Note Provider Nam e and Address Organization Details Recorded Time COVID-19, mRNA, LNP-S, PF, 30 mcg/0.3 mL dose 04/02/2021 completed Not Available [facility] 5 08:45:48 COVID-19, mRNA, LNP-S, PF, 30 mcg/0.3 mL dose 04/24/2021 completed Not Available [facility] 5 08:45:48 Influenza, split virus, quadrivalent, PF 04/17/2022 completed Not Available [facility] 5 08:45:48 Past Encounters Encounter ID Performer Location Encounter Start Date Encounter Closed Date Diagnosis/Indication Diagnosis SNOMED-CT Code Diagnosis ICD10 Code Diagnosis IMO Codes Diagnosis Note [id number] JORDEN Kumar [address] [place] [address] 03/26/2025 09:54:27 03/26/2025 10:24:23 Essential hypertension 40290597 I10 110/62Goal : 140/90Disc ussed DASH diet and routine exercise.W ill refill meds as listed below.Need to update labs, orders placed in September Gastritis 6418909 K29.70 Neuropathy 531128843 G62 .9 Diabetes mellitus 924704 09 E11.9 Need to update labs, orders placed in September [id number] JORDEN Kumar [address] [place] [address] 04/23/2025 08:43:37 04/23/2025 09:52:04 Acute abdominal pain 530289501 R10.9 95802 Will order imaging as listed below. Herpes zoster 6569581 B0 2.9 [id number] Will treat as listed below. Family his tory of Autoimmune disease 593348413 Z83.2 [id number] Will order labs as listed below. Essential hypertension 84968028 I10 160/84Goal : 140/90Disc ussed DASH diet and routine exercise.W ill refill meds as listed below.Will check labs as listed below. Hypertriglyceridemia 302 657624 E78.2 Will check labs as listed below. Type 2 fidelina betes mellitus without complication 559721003 E11.9 Will check labs as listed below Intermitte nt palpitations 571485515 R00.2 57800477 Health Concerns Section Related Observation LastModified by Organization Detai ls LastModified Time None Recorded Concern Status LastModified by Organization Details LastModified Time None Recorded Payers Encounter Date Sequence Insurance Name Policy Number Policy Feliz Covered Member ID Feliz Member ID Guarantor Name 04/23/2025 1 [facility] [id number] Zeenat Story [id number] Zeenat Story Notes Date Note Type Note Provider Name and Address Organization Details Recorded Time 04/23/2025 text/html ROS as noted in the HPI Patient is a 60 year old female that presents to the office for right sided pain that radiates from RUQ to back and into shoulder. Patient believes it is shingles, denies rash. Patient reports it is painful to wear a bra and sometimes a shirt.Gallbladder removed in 2014. Patient reports intermittent heart palpitations with dizziness and shortness of breath. Patient reports these symptoms are not triggered by anything and often happen when she is about to go to bed or is relaxing. Patient denies increased stress or anxiety. Patient also requesting to be tested for autoimmune disorders due to family history. MAGGY Kumar-C [address] [facility] [facility] [address], [place], [address], [facility] [employer] 04/23/2025 09:28:43 OBGyn Episode No OBEpisode recorded.
--- OUTSIDE RECORDS SUMMARY | 2025-04-23 21:17 | XMS_ITS | Clinical Summary ---
Author Organization [facility] Address [address], [address] [id number] Phone Care Team Providers Care Sales Office Coordinator Name Role Phone Татьяна Carrasco MD Primary Care Provider Allergies Active Allergy Reactions Criticality Noted Date Comments Other Anaphylaxis 06/29/2015 EPIDURAL, SPINAL, VIPIN BLOCKS CAUSE CONVULSIONS AND ANAPHYLAXIS SHOCK Penicillin G Unknown 06/29/2015 Medications metFORMIN (GLUCOPHAGE) 1000 MG Tablet Take 1,000 mg by mouth 2 times daily (with meals). Active naproxen (NAPROSYN) 500 MG Tablet Take 500 mg by mouth 2 times daily as needed. Active Family History Medical History Relation Name Comments Diabetes Brother Hypertension Brother Colon Cancer Father Diabetes Father Osteoarthritis Father Thyroid Disease Father Breast Cancer Mother Diabetes Mother Migraines Mother Osteoarthritis Mother Lung Cancer Paternal Aunt 1 Colon Cancer Paternal Aunt 2 Breast Cancer Sister Diabetes Sister Relation Name Status Comments Brother Father Alive Mother Alive Paternal Aunt 1 Paternal Aunt 2 Sister Social History Tobacco Use Types Packs/Day Years Used Date Smoking Tobacco: Former Cigarettes 1 15 Smokeless Tobacco: Former Quit: 07/07/2013 Alcohol Use Standard Drinks/Week Comments No 0 (1 standard drink = 0.6 oz pur e alcohol) Comments Unknown Sex and Gender Information Value Date Recorded Sex Assigned at Not on file Legal Sex Female 11:00 PM CDT Gender Identity Not on file Sexual Orientation Not on file Last Filed Vital Signs Vital Sign Reading Time Taken Comments Blood Pressure 136/68 07/07/2015 8:10 AM NCR OPERATOR Pulse - - Temperature 36 C (96.8 F) 07/07/2015 8:10 AM NCR OPERATOR Respiratory Rate 16 07/07/2015 8:10 AM NCR OPERATOR Oxygen Saturation 95% 07/07/2015 8:10 AM NCR OPERATOR Inhaled Oxygen Concentration - - Weight 103.4 kg (228 lb) 07/07/2015 5:31 AM NCR OPERATOR Height 162.6 cm (5' 4) 07/07/2015 5:31 AM NCR OPERATOR Body Mass Index 39.14 07/07/2015 5:31 AM NCR OPERATOR Plan of Treatment Health Maintenance Due Date Last Done Comments Hepatitis C Virus (HCV) Screening 1966 TdaP Immunization 1966 Hepatitis B Immunization (1 of 3 - 19+ 3-dose series) 1985 Pap Smear 1987 Cervical Cancer Screening (CCS) 1996 HPV/Cotest 1996 Cologuard 2011 Immunochemical Fecal Occult Blood 2011 Pneumococcal Immunization (5 0+ years) (1 of 1 - PCV) 2016 Zoster Immunization (1 of 2) 2016 Influenza Immunization (#1) 2025 SARS-COV-2 Immunization ( - season) 2025 Colonoscopy 07/07/2025 07/07/2015 Colorectal Cancer Screening 07/07/2025 Respiratory Syncytial Virus (RSV) Immunization (Adult) (1 - 1-dose 75+ series) 2041 Human Papillomavirus (HPV) Immunization Aged Out No longer eligible b ased on patient's age to complete this topic Meningococcal Immunization (ACWY) Aged Out No longer eligible based on patient's age to complete this topic Rotavirus Immunization Aged Out No lo nger eligible based on patient's age to complete this topic Care Teams Sales Office Coordinator Relationship Specialty Start Date End Date Татьяна Carrasco MD [address] [place] [address] PCP - General Internal Medicine 07/07/15
--- OUTSIDE RECORDS SUMMARY | 2025-04-23 21:17 | XMS_ITS | Data Portability ---
Author Organization [place] - [email or web address], Main Office Address [address] [place] [address] Assessment No assessment recorded. Plan of Treatment Reminders Order Date Submit Date Provider Last Modified By Organization Details Last Modified Time Details Appointments Sick/A cute 2024 08:15A Sara Garcia NP Not available Not available Not available Follow Up 30 2025 09:00A Sara Garcia NP Not available Not available Not available Lab CHAPO (antin uclear antibo dies) screen , serum 2024 025 [facility], [address], [place], [address], 04/23/2025 09:56:55 rf (rheum atoid factor ), serum 2024 025 [email or web address] [employer], [address], [place], [address], 04/23/2025 09:57:18 ESR (eryth rocyte sedime ntatio n rate), blood 2024 025 [facility], [address], [place], [address], 04/23/2025 09:57:31 lipid panel, serum 2024 025 [facility], [address], [place], [address], 04/23/2025 09:58:19 CBC w/ auto diff 2024 025 [email or web address] [facility], [address], [place], [address], 04/23/2025 09:58:43 HbA1c (hemog lobin A1c), blood 2024 025 [employer] [facility], [address], [place], [address], 04/23/2025 09:57:45 CMP, serum or plasma 2024 025 [employer], [address], [place], [address], 04/23/2025 09:58:01 lipid panel, serum [address] [place] [address] (Lab), [address] [place] [address], [address], 10/01/2024 08:21:31 CMP, serum or plasma [address] [place] [address] (Lab), [address] [place] [address], [address], 10/01/2024 08:21:31 TSH + free T4, serum [address] [place] [address] (Lab), [address] [place] [address] [address], [address], 10/01/2024 08:21:31 HbA1c (hemog lobin A1c), blood [address] [place] [address] (Lab), [facility] [address], [place], [address], 10/01/2024 08:21:31 CBC w/ auto diff [address] [place] [address] (Lab), [address] [place] [address] [address], [place], [address], 10/01/2024 08:21:31 Referral gastro entero logist referr al - Please call patikaya t to ale strong appoin tment. Thank you. 2024 025 [email or web address] Steven Araiza MD, [address] [facility], [place], [address], 08/26/2024 08:49:02 endocr inolog y referr al - Please call braxton ngo to ale strong appoin tment. Thank you. 2023 024 [email or web address] [facility] , [address] [place], [address], 02/27/2024 08:58:08 Procedures None record ed. Surgeries None record ed. Imaging electr ocardi ogram 2024 025 [facility] [address], [place], [address], 04/23/2025 09:52:04 XR, chest, 2 view 2024 025 [facility], [facility] [address], [address], 04/23/2025 12:36:56 US, abdome n, comple te 2024 025 [facility], [facility] [address] [place] [address], [address], 04/23/2025 12:44:52 MAMMO, screen ing, digita l, bilate ral - Please call braxton ngo to ale wick. [address], [facility] [address], [address], 12/22/2024 17:06:43 Medication Orders valacy clovir 1 gram tablet 2024 025 [facility], [address] [facility], [place], [address], 04/23/2025 09:17:34 famoti dine 20 mg tablet 2024 [facility], [address] [place] [address], [address], 03/26/2025 10:15:38 omepra zole 40 mg capsul e,hugo yed releas e 2024 [facility], [address] [place] [address], [address], 03/26/2025 10:15:35 glipiz devan ER 10 mg tablet , extend ed releas e 24 hr 2024 [facility], [address] [place] [address], [address], 03/26/2025 10:15:37 metfor min ER 500 mg tablet ,exten ded releas e 24 hr 2024 [facility], [address] [place] [address], [address], 03/26/2025 10:15:36 amlodi pine 10 mg tablet 2024 [facility], [address] [place] [address], [address], 03/26/2025 10:15:39 carved ilol 6.25 mg tablet 2024 [facility], [address] [place] [address], [address], 03/26/2025 10:15:37 gabape ntin 100 mg capsul e 2024 [facility], [address] [place] [address], [address], 03/26/2025 10:15:35 omepra zole 40 mg capsul e,hugo yed releas e 2024 025 [facility], [address] [place] [address], [address], 07/28/2024 09:08:35 famoti dine 20 mg tablet 2024 025 [facility], [address] [place] [address], [address], 07/28/2024 09:08:33 amlodi pine 10 mg tablet 2024 025 [facility], [address] [place] [address], [address], 07/28/2024 09:08:34 gabape ntin 300 mg capsul e 2024 025 [facility], [address] [place] [address], [address], 09/23/2024 09:36:23 metfor min ER 500 mg tablet ,exten ded releas e 24 hr 2023 024 [facility], [address] [place] [address], [address], 01/30/2024 08:22:41 Patient TargetsNo targets recorded. Patient InstructionsNo instructions recorded. Reason for Referral Endocrinology Referral for D iabetes mellitus uncontrolled type 2 DM Please call patient to schedule an appointment. Thank you. Referring Physician: [facility], Encounter Date: 01/30/2024 Sr Risk Management Consultant Referral for Gastritis Please call patient to schedule an appointment. Thank you. Referring Physician: [facility], Encounter Date: 07/28/2024 Results Created Date Observation Date Name Description Value Unit Range Abnormal Flag Note LastModifiedBy Organization Detail LastModifiedTime 05/30/20 24 05/30/2024 CT, abdom en + pelvi s, w/ contr ast No observ ation record ed. [email or web address] [facility] [address], [place], [address], 06/02/2024 23:37:45 04/23/20 25 mat cassidy am No observ ation record ed. [facility] [address], [place], [address], 04/23/2025 09:16:51 Result Notes None recorded. Problems Name Problem SNOMED Code Status Onset Date Resolution Date Notes Provider Name and Address Organization Details Recorded Time Mammograph y abnormal 471316364 Active Not Available [facility] 3 14:19:52 Steatotic liver disease 760298411 Active Not Available [facility] 3 14:19:53 Biliary dyskinesia 993527886 Active Not Available [facility] 3 14:19:53 Hypertrigl yceridemia 681917611 Active Not Available [facility] 3 14:19:53 Type 2 diabetes mellitus without complicati on 517310405 Active Not Available [employer] 3 14:19:53 Obesity 637764745 Active Not Available [facility] 3 14:19:53 Essential hypertensi on 92570575 Active JORDEN Kumar [address] [facility], [place] [address], [place], [address] , [employer] [facility] [employer] 5 10:09:29 Diabetes mellitus 59293493 Active JORDEN Kumar [address], [facility] [address], [place], [address] , [employer] [facility] [employer] 5 10:09:21 Pancreatit is 31017543 Active 2013 Not Available [facility] 3 14:19:53 Hyperglyce memo due to type 2 diabetes mellitus 7293032173369 09 Active 2019 Not Available [employer] 3 14:19:53 Diabetic peripheral neuropathy 797805225 Active 2019 Not Available [employer] 3 14:19:53 Memory impairment 369888731 Active 2023 Zi Skinnre, [employer] [address], [place], [address] , [employer] 4 15:21:32 Disturbanc e in speech 30112628 Active 2023 Zi Skinner [employer] [address], [place], [address] , [employer] 4 15:30:12 Dyspnea 177608059 Active 2023 Zi Skinner [employer] [address], [place], [address] , [employer] 4 15:39:04 Persistent cough 646636186 Active 2023 Zi Skinner [employer] [address], [place], [address] , [employer] 4 15:02:19 Upper respirator y infection 14359322 Active 2023 Zi Skinner [employer] [address], [place], [address] , [employer] 4 15:03:49 Impairment of balance 544032215 Active 2023 Zi Skinner [employer] [address], [place], [address] , [employer] 4 08:23:58 Gastritis 1952314 Active 2024 JORDEN Kumar [address], [place], [address] , [employer] 5 08:59:48 Neuropathy 052664874 Active 2024 JORDEN Kumar [address], [place], [address] , [employer] 5 09:04:48 Acute abdominal pain 424384567 Active 2024 JORDEN Kumar [address], [place], [address] , [employer] [facility] [employer] [facility] 5 09:10:06 Herpes zoster 0000607 Active 2024 JORDEN Kumar [address], [place] [address], [place], [address] , [employer] [facility] [employer] [facility] 5 09:10:58 Intermitte nt palpitatio ns 266988488 Active 2024 JORDEN Kumar [address], [place] [address], [place], [address] , [employer] [facility] [employer] [facility] 09:16:46 Problem Notes None recorded. Procedures Surgical History Date Name Laterality Status Provider Name and Address Organization Details Recorded Time Tubal Ligation completed Jennifer Garcia MA [facility] [employer] [facility] 09/23/2024 09:40:42 delivery completed Jennifer Garcia MA [facility] [employer] [facility] 09/23/2024 09:40:53 Carpal tunnel surgery completed Jennifer Garcia MA [facility] [employer] [facility] 09/23/2024 09:41:02 Hernia Repair completed Jennifer Garcia MA [facility] [employer] [facility] 09/23/2024 09:41:09 Cholecystectomy completed Jennifer Garcia MA [facility] [employer] [facility] 09/23/2024 09:41:20 Brain Surgery completed Jennifer Garcia MA [facility] [employer] [facility] 09/23/2024 09:41:30 Imaging Results None recorded. Procedure Notes None recorded. Medical Equipment None Reported. Allergies Allergen ID Allergen Name Allergen Category Reaction Reaction Severity Criticality Documentation Date Start Date Code Code System Note Provider Name and Address Organization Details Recorded Time 20743 Product containin g penicilli n (product) medicatio n Not available Not available Not available 08/16/2022 68314 8001 SNOMED GI upset , cause s [...] TAKE 1 TABLET BY MOUTH TWICE DAILY 03/08 /2024 completed side effects Not Available Not Available [...] e 50 mcg/actua tion nasal spray,jun pension [place] 1 spray every day by intranas al [...] completed Not Available Not Available Not Available [place] [employer] Voice Plus Test strips active Not Available Not Available Not Available [place] [employer] Level 2 Control solution active Not [...] Details Last Updated DateTime 5 161.29 cm 43.1 kg/m2 584829. 32 g 97.3 [degF] 101 /min 96 % 96 % 148/90 mm[Hg] David Egan RN [facility] [email or web address] 5 08:53:17 Date Recorded Body height Body mass index (BMI) Body weight Body temperature Heart rate Oxygen saturation Oxygen saturation in Arterial blood by Pulse oximetry Pain severity - 0-10 verbal numeric rating [Score] - Reported Systolic And Diastolic Provider Name and Address Organization Details Last Updated DateTime 5 161.29 cm 43.2 kg/m2 741624. 91 g 97.8 [degF] 96 /min 97 % 97 % 2 150/78 mm[Hg] Jennifer Garcia MA [facility] [email or web address] 5 09:35:46 Date Recorded Body height Body mass index (BMI) Body weight Body temperature Heart rate Oxygen saturation Oxygen saturation in Arterial blood by Pulse oximetry Systolic And Diastolic Provider Name and Address Organization Details Last Updated DateTime 4 161.29 cm 42.7 kg/m2 517164. 13 g 97.2 [degF] 103 /min 95 % 95 % 138/80 mm[Hg] Claudia Morfin RN [facility] [email or web address] 4 08:11:46 Date Recorded Body height Body mass index (BMI) Body weight Body temperature Heart rate Oxygen saturation Oxygen saturation in Arterial blood by Pulse oximetry Systolic And Diastolic Provider Name and Address Organization Details Last Updated DateTime 5 161.29 cm 41.5 kg/m2 840698. 98 g 97.9 [degF] 84 /min 98 % 98 % 110/62 mm[Hg] BRENDAN Bell [facility] [employer] [facility] 5 10:04:37 Date Recorded Body height Body mass index (BMI) Body weight Body temperature Heart rate Oxygen saturation Oxygen saturation in Arterial blood by Pulse oximetry Systolic And Diastolic Provider Name and Address Organization Details Last Updated DateTime 5 161.29 cm 42.4 kg/m2 090062. 95 g 97 [degF] 100 /min 98 % 98 % 160/84 mm[Hg] Bola Chan Dina [facility] [employer] [facility] 5 08:57:58 Social History Question Answer Notes LastModified by Organizat ion Details LastModified Time Tobacco Smoking Status Former Smoker REYES Barlow, [facility] [employer] [facility] 09/23/2024 09:39:40 Do You Have An Advance Directive? No [id number] Information not available 08/16/2022 What Is Your Level Of Caffeine Consumption? Moderate Information not available 09/23/2024 In The 14 Days Before Symptom Onset, Have You Had Close Contact With A Laboratory-confirm ed COVID-19 While That Case Was Ill? No [id number] Information not available 08/16/2022 In The 14 Days Before Symptom Onset, Have You Had Close Contact With A Person Who Is Under Investigation For COVID-19 While That Person Was Ill? No [id number] Information not available 08/16/2022 What Type Of Diet Are You Following? REGULAR [id number] Information not available 08/16/2022 Have There Been Any Changes To Your Family Or Social Situation? No Information no t available 09/23/2024 When Did You Quit Smoking? 11-15yearssin celastcigaret te Information not available 09/23/2024 Do You Use Insect Repellent Routinely? No Information not available 09/23/2024 Where Do You Live? Trailer Inform ation not available 09/23/2024 Do You Have A Medical Power Of Disaster Director? No [id number] Information not available 08/16/2022 What Was The [...] 09/23/2024 Have You Recently Traveled Abroad? No [id number] Information not available 08/16/2022 Are You Currently In School? No Information not available 09/23/2024 Do You Have Any Dietary Restrictions? No [id number] Information not available 08/16/2022 Sex: Unknown Functional Status Question Answer Note LastModified by Organizat ion Details LastModified Time Do you use any illicit or recreational drugs? No Information not available 09/23/2024 Do you or have you ever used any other forms of tobacco or nicotine? No Information not available 09/23/2024 What is your level of alcohol consumption? None [id number] Information not available 08/16/2022 Are you currently employed? 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 Moderate Information not available 09/23/2024 Mental Status Question Answer Note LastModified by Organization D etails LastModified Time Do you feel stressed (tense, restless, nervous, or anxious, or unable to sleep at night)? [id number] Information not available 09/23/2024 Family History Relationship [...] available 2024 09:38:28 Medical History Condition Response MRSA N SLEEP APNEA N ALLERGIES/HAYFEVER N LUNG DISEASE/DISORDER N INSOMNIA N COPD N RADIATION / CHEMOTHERAPY N HIGH CHOLESTEROL / HYPERLIPIDEMIA N HYPERTHYROIDISM N BLOOD DISEASES N EAR OR HEARING PROBLEMS N HYPOTHYROIDISM N DEPRESSION (INCLUDING POST ) N HAVE YOU BEEN HOSPITALIZ[facility] OR [facility] IN THE [facility]ST [facility] ? N STROKE/TIA N ULCERS N OBESITY N ANEURYSM N HISTORY WITH COMPLICATIONS WITH ANESTHES IA ? Y USE OF BLOOD THINNERS N NO SIGNIFICANT PAST MEDICAL HISTORY N DIABETES, TYPE N PARATHYROID DISEASE N ENT N SEASONAL ALLERGIES Y HEARTBURN / REFLUX N HEPATITIS / LIVER DISEASE N SLEEP DISORDER N SEIZURES/EPILEPSY N HEADACHES/MIGRAINES Y CHF N PACEMAKER N DIZZINESS N HEART DISEASE/HEART PROBLEMS N AIDS/HIV N FRACTURES N HYPERTENSION Y CANCER: SPECIFY N TOURETTE'S N BLOOD TRANSFUSION N ANEMIA/BLOOD DISORDER N ANESTHESIA COMPLICATIONS N CHRONIC EAR INFECTIONS Y TUBERCULOSIS N [...] mcg/0.3 mL dose 04/02/2021 completed Not Available [facility] 5 08:45:48 COVID-19, mRNA, LNP-S, PF, 30 mcg/0.3 mL dose 04/24/2021 completed Not Available [facility] 5 08:45:48 Influenza, split virus, quadrivalent, PF 04/17/2022 completed Not Available [facility] 5 08:45:48 Past Encounters Encounter ID Performer Location Encounter Start Date Encounter Closed Date Diagnosis/Indication Diagnosis SNOMED-CT Code Diagnosis ICD10 Code Diagnosis IMO Codes Diagnosis Note [id number] Edenilson Guerrier MD [facility] [place] [address] [place] [address] 12/21/2020 00:00:00 12/21/2020 15:10:[id number] [facility] Primary [facility] [place] [address] [place] [address] 01/21/2021 00:00:00 01/21/2021 18:34:[id number] [facility] [place] [address] [place] [address] 03/11/2021 00:00:00 03/11/2021 08:50:[id number] 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-neuro was unable to offer any suggestion s for continued treatment of memory impairment -neuro referral given Disturbance in speech 29 590436 R47.9 -notes continued trouble with speech-dec lines speech therapy referral at this time Diabetes mellitus 110272 09 E11.9 -chronic, unstable-s he is unable to continue taking metformin d/t ASE-contin ues use of glipizide- A1c not up to date-check s blood sugars daily in the morning-do es not exercise daily-labs obtained-r efill glipizide 10mg-trial ozempic Dyspnea 060503949 R06.00 -sob with going up/down stairs and with walking long distances- notes light-head edness when unable to catch breath Essential hypertension 70438355 I10 -chronic stable with use of meds-bp 160/78, 108, has not taken bp meds today-drin ks 2L water/day- encouraged to limit salt intake-ref ill carvedilol [id number] Silke Torres MD [facility] Primary Care [facility] [address] [facility] [address] [place] [address] 10/02/2023 14:28:40 10/02/2023 15:27:47 Diabetes mellitus 70605251 E11.9 10-02-23-ch ronic, unstable-2 lb weight gain since last visit-note s blood sugars in the 300s fasting, last A1c 13.1-ozemp ic has affected her appetite, some nausea that is approving- she does not feel the ozempic is working well for her yet, side effects are manageable -she has started to walk her dog every day-increa sing ozempic to 0.5 mg weekly-pt notes having lantus at home (her husbands that he no longer takes)-tri al lantus 10 units daily-pt in agreeance- continue to monitor morning glucose-f/ u in 1 month -she is unable to continue taking metformin d/t ASE-contin ues use of glipizide- A1c not up to date-check s blood sugars daily in the morning-do es not exercise daily-labs obtained-r efill glipizide 10mg-trial ozempic Memory impairment 124237 006 R41.3 -pt still plans to call and f/u with past neurologis t chronic issue since 2020-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 tispt still plans to call and f/u with past neurologis tf/u with neurologis t in early february chronic issue since 2020-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 Primary Care [facility] [address] [facility] [address] [place] [address] 07/28/2024 08:39:51 07/28/2024 09:26:37 Gastritis 3639082 K29.70 Essential hypertension 54120723 I10 148/90Disc ussed DASH diet.Will continue with current medication s as patient has been out of her Amlodpine for a few months. Neuropathy 352541833 G62 .9 [id number] J[facility]EN [facility] [address] [facility] [address] [place] [address] 09/23/2024 09:24:14 09/23/2024 10:20:53 Adult health examination 323356552 Z00.00 Discussed medication compliance and routine follow up.Discuss ed healthy diet and routine exercise.Ana bullockwed vaccine records and made recommenda tions as needed.Enc ouraged annual eye and dental exams, as well as twice yearly dental cleanings. Will check screening labs as listed below. Screening mammography 24 684697 Z12.31 Diabetes mellitus 638414 09 E11.9 Essential hypertension 91120238 I10 150/78 initialToo k medication just prior to appt.Discu ssed DASH diet. Hypertriglyceridemia 302 243865 E78.2 Body mass index 40+ - severely obese 383346875 Z68.41 Weight: 248 poundsBMI: 43.2Discus sed healthy diet and routine exercise. Thyroid di sorder screening 942339226 Z13.29 [id number] JORDEN Kumar [facility] Primary Care [facility] [address] [facility] [address] [place] [address] 03/26/2025 09:54:27 03/26/2025 10:24:23 Essential hypertension 64576727 I10 110/62Goal : 140/90Disc ussed DASH diet and routine exercise.W ill refill meds as listed below.Need to update labs, orders placed in September [id number] K29.70 Neuropathy 472358271 G62 .9 Diabetes mellitus 810449 09 E11.9 Need to update labs, orders placed in September [id number] JORDEN Kumar [facility] Primary Care [facility] [address] [facility] [address] [place] [address] 04/23/2025 08:43:37 04/23/2025 09:52:04 Acute abdominal pain 129066649 R10.9 [id number] Will order imaging as listed below. Herpes zoster 0143147 B0 2.9 [id number] Will treat as listed below. Family his tory of Autoimmune disease [id number] Z83.2 [id number] Will order labs as listed below. Essential hypertension [id number] I10 160/84Goal : 140/90Disc ussed DASH diet and routine exercise.W ill refill meds as listed below.Will check labs as listed below. Hypertriglyceridemia [id number] E78.2 Will check labs as listed below. Type 2 fidelina betes mellitus without complication [id number] E11.9 Will check labs as listed below Intermitte nt palpitations [id number] R00.2 [id number] Health Concerns Section Related Observation LastModified by Organization Detai ls LastModified Time None Recorded Concern Status LastModified by Organization Details LastModified Time None Recorded Advance Directives Directive N: Payers Insurance Date Sequence Insurance Name Policy Number Policy Feliz Covered Member ID Feliz Member ID Guarantor Name 04/21/2025 1 [facility] [id number] Zeenat V Porsha [id number] Zeenat V Porsha 04/22/2025 1 [facility] [id number] Zeenat V Porsha [id number] Zeenat V Porsha Notes Date Note Type Note Provider Name and Address Organization Details Recorded Time 01/30/2024 text/html pt is here for f/u JORDEN Calzada [address], [place], [address], eflow 01/30/2024 08:37:24 07/28/2024 text/html ROS as noted in the HPI Patient is a 59 year old female that presents to the office for follow up. Patient went to [facility] in May for left upper quadrant pain, was diagnosed with gastritis and prescribed Famotidine. Patient reports pain is still present but bearable. Patient reports symptoms are aggravated by red meats and pork so she is avoiding them. Patient denies diarrhea and constipation. Patient has history of pancreatitis. JORDEN Kumar [address], [place], [address], eflow 07/28/2024 09:29:17 09/23/2024 text/html ROS as noted in the HPI Patient is a 59 year old female that presents to the office for annual wellness. Patient reports she is doing well on current medications and has no concerns at this time. Patient checks her BS 1-2 times daily, readings are usually around 150. Patient saw GI specialist and had an EGD ordered, was unable to have it completed because hospital in [place] would not bill her HSA. Patient would like to have imaging completed at [facility]. Patient reports changing her diet drastically to help with symptoms of gastritis. Patient quit eating red meat, eats fresh fruits and vegetables with chicken and fish. Diabetic Foot Exam-aware Diabetic Eye Exam UTDlabs- orderedWWE- 3 years ago, aware to updateMammogram- orderedColonoscopy - 5 years agoFlu- declinesCovid- initialTdap- awareShingles- awarePneumonia- aware JORDEN Kumar [address], [place], [address], eflow 09/23/2024 10:19:47 03/26/2025 text/html Patient is a 59 year old female that presents to the office for 6 month follow up. Hypertension: Amlodipine and Carvedilol dailyGastritis: Famotidine and Omeprazole dailyNeuropathy: Gabapentin daily as neededDiabetes: Glipizide and Metformin daily Had shingles about 4 months ago, has resolved annual labs were not completed JORDEN Kumar [address], [place], [address], eflow 03/26/2025 10:16:08 04/23/2025 text/html ROS as noted in the [...] for autoimmune disorders due to family history. JORDEN Kumar [address], [address], [place], [address], eflow 04/23/2025 09:28:43 OBGyn Episode No OBEpisode recorded.
--- NOTE | 2025-04-23 21:42 | ECG_ITS ---
Test Date: 2025-04-23 21:45:30 Measurements Intervals Mears Rate: 87 P: 23 MD: 178 QRS: -10 QRSD: 93 T: 16 QT: 375 QTc: 453 Interpretive Statements SINUS RHYTHM POSSIBLE ANTERIOR MYOCARDIAL INFARCTION , PROBABLY OLD INFERIOR MYOCARDIAL INFARCTION , PROBABLY OLD Electronically Signed On 04-23-2025 22:25:18 CUPOLA REPAIRER by Mauricio Mendez D.O
[2025-04-23 22:08] LABS: Troponin I < 0.012 ng/mL (0.000-0.034)
[2025-04-24] VITALS (12 sets, daily range): BP systolic 155–158; BP diastolic 72–79; PULSE 89–99; RESP 8–32; O2SAT 97–100
[2025-04-24] MEDS: LACTATED RINGERS 1,000 ML 999 ML IV CONT (00:42)
[2025-04-24 01:11] LABS: Influenza A QL RT-PCR Negative (Negative); Influenza B QL RT-PCR Negative (Negative); RSV RNA, RT-PCR Negative (Negative); SARS-CoV-2 RNA PCR Negative (Negative)
== END 2025-04-24 02:48 | disposition home or self-care (01) ==
PROVIDERS: Student in an Organized Health Care Education/Training Program; Emergency Provider Emergency Medicine; PCP Nurse Practitioner Family
DX: R00.2 Palpitations (principal); Z20.822 Contact with and (suspected) exposure to COVID-19; E11.9 Type 2 diabetes mellitus without complications; E66.01 Morbid (severe) obesity due to excess calories; Z68.41 Body mass index [BMI] 40.0-44.9, adult; Z86.711 Personal history of pulmonary embolism; Z87.442 Personal history of urinary calculi; Z87.891 Personal history of nicotine dependence; Z90.49 Acquired absence of other specified parts of digestive tract; R91.8 Other nonspecific abnormal finding of lung field; Z79.84 Long term (current) use of oral hypoglycemic drugs; R94.31 Abnormal electrocardiogram [ECG] [EKG]
CPT/HCPCS: 36415; 71046; 71275; 80053; 83690; 84484; 85025; 85610; 85730; 87637; 93005; 96360; 99284; J7120; Q9967

== ENCOUNTER 2025-05-26 12:52 | Outpatient (CLI) | payer OTHER, SELFPAY ==
--- NOTE | 2025-05-28 15:45 | WPDPFTINT ---
PFT Procedure Performed PFT Procedure Performed Spirometry with Pre/Post Bronchodilator Plethysmography (Lung Vol) Diffusing Cap (DLCO) Flow Vol Loop PFT Interpretation This is a pulmonary function test with pre and post-bronchodilator spirometry, plethysmography and diffusing capacity. The test was performed and results interpreted in accordance with the 2019 and 2005 ATS/ERS Task Force guidelines respectively using the Global Lung Function Initiative-2012 reference equations. Patient demonstrated good effort and cooperation. Reproducibility criteria were met. The quality of the pre bronchodilator spirometry maneuver was Grade A and post bronchodilator spirometry maneuver was Grade A. Findings: Spirometry: The contour the inspiratory and expiratory flow tracing are normal. The pre bronchodilator FVC is 1.88 L, 89% predicted. The pre bronchodilator FEV1 is 1.53 L, 90% predicted. The pre bronchodilator FVC the 1: FVC ratio is 82%. The post bronchodilator FVC is 2.06 L, representing a 10% increase. The post bronchodilator FEV1 is 1.70 L, representing an 11% increase. The post bronchodilator FEV1: FVC ratio is 83%. Plethysmography: The total lung capacity is 3.41 L, 99% predicted. The functional residual capacity is 1.65 L, 89% predicted. The residual volume is 1.33 L, 93% predicted. Diffusing capacity: The diffusing capacity unadjusted for hemoglobin and carboxyhemoglobin is 15.2, 88% predicted. The diffusing capacity adjusted for alveolar volume is 4.88, 98% predicted. Impression: The spirometry is normal without evidence of an obstructive abnormality. There is no significant improvement after inhaling a single dose of albuterol. The lung volumes are normal. The diffusing capacity is normal. There are no prior studies for comparison
== END 2025-05-26 12:53 | disposition home or self-care (01) ==
PROVIDERS: PCP Nurse Practitioner Family; Visit Provider Internal Medicine Pulmonary Disease
DX: R06.09 Other forms of dyspnea (principal); R05.9 Cough, unspecified; Z91.09 Other allergy status, other than to drugs and biological substances; D89.9 Disorder involving the immune mechanism, unspecified
CPT/HCPCS: 94060; 94726; 94729

== ENCOUNTER 2025-06-04 13:31 | Outpatient (CLI) | payer OTHER, SELFPAY ==
--- NOTE | 2025-06-04 | ECHO_ITS ---
Patient Info Name: Zeenat Story Age: 60 years : 1965 Gender: Female Ht: 63 in Wt: 242 lbs BSA: 2.27 m2 HR: 101 bpm BP: 111 / 79 mmHg Technical Quality: Fair Exam Date: 06/04/2025 1:56 PM Patient Status: unknown Admit Date: 06/04/2025 Exam Type: CA echo doppler color flow Complete two-dimensional, color flow and Doppler transthoracic echocardiogram is performed. Rug Hooker Hand: Marielle Chen Attending Provider: Eder Rutherford Summary 1. Complete two-dimensional, color flow and Doppler transthoracic echocardiogram is performed. 2. Left ventricular systolic function is normal, estimated at 65-70. 3. There is mildly increased left ventricular wall thickness. 4. The left ventricular diastolic function is grade I diastolic dysfunction. 5. There is mild tricuspid valve regurgitation. 6. No pulmonary hypertension, estimated pulmonary arterial systolic pressure is 21 mmHg. Left Ventricle Left ventricular chamber dimension is normal. Left ventricular systolic function is normal, estimated at 65-70. There is mildly increased left ventricular wall thickness. Left ventricular septal wall motion is normal. The left ventricular diastolic function is grade I diastolic dysfunction. Right Ventricle Right ventricular chamber dimension is normal. Right ventricular systolic function is normal. Left Atria Left atrial chamber dimension is normal. Right Atria Right atrial chamber dimension is normal. Aortic Valve The aortic valve is trileaflet. There is no aortic valve sclerosis. There is no aortic valve stenosis. There is no aortic valve regurgitation. Pulmonic Valve The pulmonic valve is normal. There is no pulmonic valve stenosis. There is no pulmonic regurgitation. Mitral Valve The mitral valve has normal leaflets. There is no mitral valve stenosis. There is no mitral valve regurgitation. There is mild mitral valve calcification. Tricuspid Valve The tricuspid valve leaflets are normal. There is no significant tricuspid valve stenosis. There is mild tricuspid valve regurgitation. No pulmonary hypertension, estimated pulmonary arterial systolic pressure is 21 mmHg. Pericardium/Pleural The pericardium appears normal. There is no pericardial effusion. Inferior Vena Cava Normal inferior vena cava with >50% collapse upon inspiration consistent with normal right atrial pressure, 5 mmHg. Aorta The aortic root size at the sinus of Valsalva is normal. The prox ascending aorta size is normal. Left Ventricular Outflow Tract Name Value Normal LVOT 2D LVOT Diameter 2.0 cm LVOT Doppler LVOT Peak Velocity 108 cm/s LVOT Peak Gradient 5 mmHg LVOT Mean Gradient 3 mmHg LVOT VTI 22 cm LVOT VTI/AV VTI Ratio 1.0 LVOT Stroke Volume 68 ml LVOT CO 6.4 l/min LVOT CI 2.8 l/min/m2 Pulmonic Valve Name Value Normal RVOT Doppler RVOT Peak Velocity 69 cm/s RVOT Peak Gradient 2 mmHg PV Doppler PV Peak Velocity 75 cm/s PV Peak Gradient 2 mmHg Mitral Valve Name Value Normal MV Diastolic Function MV E Peak Velocity 75 cm/s MV A Peak Velocity 134 cm/s MV E/A 0.6 MV Decel Time (PW) 133 ms Tricuspid Valve Name Value Normal TV Regurgitation Doppler TR Peak Velocity 200 cm/s TR Peak Gradient 16 mmHg Estimated PAP/RSVP RA Pressure 5 mmHg <=5 PA Systolic Pressure 21 mmHg <36 RV Systolic Pressure 21 mmHg <36 Aorta Name Value Normal Ascending Aorta Ao Root Diameter (MM) 3.3 cm Ao Root Diam Index (MM) 1.5 cm/m2 Aortic Valve Name Value Normal AV Doppler AV Peak Velocity 131 cm/s AV Peak Gradient 7 mmHg AV Mean Gradient 4 mmHg AV VTI 23 cm AV Area (Cont Eq VTI) 3.0 cm2 >=3.0 AV Area (Cont Eq George) 2.6 cm2 AV DI (George) 0.83 AV Regurgitation 2D LVOT Area 3.1 cm2 Ventricles Name Value Normal LV Dimensions 2D/MM IVS Diastolic Thickness (2D) 1.0 cm 0.6-1.0 IVS Diastole Thickness (MM) 0.9 cm 0.6-0.9 LVID Diastole (2D) 4.4 cm 3.8-5.2 LVID Diastole (MM) 4.4 cm 3.8-5.2 LVIW Diastolic Thickness (2D) 1.4 cm 0.6-0.9 LVIW Diastolic Thickness (MM) 1.1 cm 0.6-0.9 LVID Systole (2D) 2.5 cm 2.2-3.5 LVID Systole (MM) 2.3 cm 2.2-3.5 LVOT Diameter 2.0 cm LV Mass (2D Cubed) 195.65 g 67.00-162.00 LV Mass Index (2D Cubed) 86 g/m2 43-95 Relative Wall Thickness (2D) 0.62 <=0.42 LV Mass (MM Cubed) 143.75 g 67.00-162.00 LV Mass Index (MM Cubed) 63 g/m2 43-95 Relative Wall Thickness (MM) 0.50 LV Fractional Shortening/Ejection Fraction 2D/MM LV Fractional Shortening (2D) 43 % 27-45 LV Fractional Shortening (MM) 48 % 27-45 LV EF (MM Teichholz) 80 % LV EF (2D Teichholz) 75 % LV Diastolic Volume (4C MOD) 27 ml LV EF (4C MOD) 61 % LV Diastolic Volume (2C MOD) 37 ml LV EF (2C MOD) 76 % LV Diastolic Volume (BP MOD) 32 ml 46-106 LV Diastolic Volume Index (BP MOD) 14 ml/m2 29-61 LV Systolic Volume (BP MOD) 10 ml 14-42 LV Systolic Volume Index (BP MOD) 4 ml/m2 8-24 LV EF (BP MOD) 68 % 54-74 LV Diastolic Length (4C) 7.3 cm LV Systolic Length (4C) 6.1 cm LV Stroke Volume (4C MOD) 16 ml Atria Name Value Normal LA Dimensions LA Dimension (MM) 3.4 cm 2.7-3.8 LA Volume (4C A-L) 32 ml LA Volume (BP A-L) 26 ml RA Dimensions RA Systolic Major [place] Length (4C) 5.7 cm 2.2-2.8 RA Area (4C) 9.3 cm2 <=18.0 Report Signatures
--- OUTSIDE RECORDS SUMMARY | 2025-06-04 14:31 | XMS_ITS | Encounter Summary ---
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 Answer Date of Assessment Author No 04/07/2022 7:03 AM Radha Torres RN * Is person blind or have serious difficulty seeing? Answer Date of Assessment Author No 04/07/2022 7:03 AM DERRICKT Radha Mock RN * Does person have serious difficulty walking/climbing stairs? Answer Date of Assessment Author No 04/07/2022 7:03 AM Radha Torres RN * Does person have difficulty dressing/bathing? [...] documented as of this encounter Care Teams Recycling Center Operator Relationship Specialty Start Date End Date Jonnie Stoner MD [address] [place] [address] PCP - General 08/16/21 Silvana Stahl MD [address] [place], [place] Resident Neurology 02/04/21 documented as of this encounter
--- OUTSIDE RECORDS SUMMARY | 2025-06-04 14:31 | XMS_ITS | Encounter Summary ---
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
--- OUTSIDE RECORDS SUMMARY | 2025-06-04 14:31 | XMS_ITS | Clinical Summary ---
Author Organization [facility] Address [address], [address] [address] Phone Care Team Providers Care Warehouse Shift Supervisor Name Role Phone Татьяна Crarasco MD Primary Care Provider Allergies Active Allergy [...] Comments Blood Pressure 136/68 07/07/2015 8:10 AM CREW SUPERVISOR Pulse - - Temperature 36 C (96.8 F) 07/07/2015 8:10 AM CREW SUPERVISOR Respiratory Rate 16 07/07/2015 8:10 AM CREW SUPERVISOR Oxygen Saturation 95% 07/07/2015 8:10 AM CREW SUPERVISOR Inhaled Oxygen Concentration - - Weight 103.4 kg (228 lb) 07/07/2015 5:31 AM CREW SUPERVISOR Height 162.6 cm (5' 4) 07/07/2015 5:31 AM CREW SUPERVISOR Body Mass Index 39.14 07/07/2015 5:31 AM CREW SUPERVISOR Plan of Treatment Health Maintenance Due Date [...] age to complete this topic Care Teams Warehouse Shift Supervisor Relationship Specialty Start Date End Date Татьяна Carrasco MD [address] [place] [address] PCP - General Internal Medicine 07/07/15
--- OUTSIDE RECORDS SUMMARY | 2025-06-04 14:31 | XMS_ITS | Clinical Summary ---
Author Organization [facility] Address [address] [facility] [place] [address] Care Team Providers Care Women'S Studies Lecturer Name Role Phone Silvana Stahl MD Unavailable [phone] Jonnie Stoner MD Primary Care Provider [phone] Source Comments [facility],non-owned Affiliates and Associated Physician Practices is amultiple site organization consisting of ambulatory clinics and hospital sitesin [place], [place], [place] and [place]. This disclosure is being madepursuant to the Care Everywhere program and may not contain all information available regarding this patient. 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 Gender Identity Not on file Sexual Orientation Not on file Last Filed Vital Signs Vital Sign Reading Time Taken Comments Blood Pressure 142/71 05/04/2022 2:58 PM HVAC SERVICE TECHNICIAN Pulse 100 05/04/2022 2:58 PM HVAC SERVICE TECHNICIAN Temperature 36.5 C (97.7 F) 05/04/2022 2:58 PM HVAC SERVICE TECHNICIAN Respiratory Rate 18 04/17/2022 8:09 AM CDT Oxygen Saturation 93% 05/04/2022 2:58 PM HVAC SERVICE TECHNICIAN Inhaled Oxygen Concentration - - Weight 108 kg (238 lb) 05/04/2022 2:58 PM HVAC SERVICE TECHNICIAN Height 160 cm (5' 3) 05/04/2022 2:58 PM HVAC SERVICE TECHNICIAN Body Mass Index 42.16 05/04/2022 2:58 PM HVAC SERVICE TECHNICIAN Plan of Treatment Health Maintenance Due Date [...] 2 - PCV) 1985 PAP SMEAR 1987 ZOSTER VACCINE (1 of 2) 2016 DIABETES-FOOT [...] this topic Medical Devices Implanted Type Area Laborer Chemical Processing Device Identifier Shelf Expiration Date Model / Serial / Lot Patch Dura 3x3in Durepair Bvn Clgn Mtrx Implanted:Qty: 1 on 04/06/2022 by Berlin Barkley MD at [facility] Left: Cranial [employer] Inc 06/17/2023 [id number] / / [id number] Slnt Dura Duraseal Pg Trilysine Amine 5 Implanted:Qty: 1 on 04/06/2022 by Berlin Barkley MD at [facility] Left: Cranial Integra [employer] Kalie 06/17/2023 [id number] / / [id number] Graft Tissue Drgn + Bvn Clgn Mtrx 3x3in - [id number] Implanted:Qty: 1 on 04/06/2022 by Berlin Barkley MD at [facility] Left: Cranial Integra [employer]iences 01/15/2025 [id number] / [id number] / [id number] Cover Bur Hl 13.5mm Spne Bnt Implanted:Qty: 1 on 04/06/2022 by Berlin Barkley MD at [facility] Left: Cranial Audra Biomet 19-1019 / / Plate 2 Hl Lopro Crnmxf 15mm Str Brennen Implanted:Qty: 1 on 04/06/2022 by Berlin Barklye MD at [facility] Left: Cranial Audra [employer]omet 19-1005 / / Plate 4 Hl Lopro Crnmxf 22mm Lng Str Implanted:Qty: 1 on 04/06/2022 by Berlin Barkley MD at [facility] Left: Cranial Audra Biomet 195 / / Screw 1.5mm 4mm Slf Drl Xdr Crnmxf Implanted:Qty: 8 on 04/06/2022 by Berlin Barkley MD at [facility] Left: Cranial Uadra Biomet 91-0629 / / Procedures Procedure Name Priority Date/Time [...] - 26 mg/dL 04/15/2022 3:10 AM CDT [facility] Creatinine 0.67 0.56 - 0.96 mg/dL 04/15/2022 3:10 AM CDT [facility] Sodium 137 136 - 145 mmol/L 04/15/2022 3:10 AM CDT [facility] Potassium 3.9 3.5 - 4.5 mmol/L 04/15/2022 3:10 AM CDT [facility] Chloride 105 98 - 107 mmol/L 04/15/2022 3:10 AM CDT [facility] CO2 22 22 - 29 mmol/L 04/15/2022 3:10 AM CDT [facility] Glucose 194(H) 70 - 115 mg/dL 04/15/2022 3:10 AM [facility] Calcium 8.3(L) 8.4 - 10.2 mg/dL 04/15/2022 3:10 AM [facility] Anion Gap 14 8 - 18 04/15/2022 3:10 AM [facility] BUN/Creatinine Ratio 13 7 - 23 04/15/2022 3:10 AM [facility] Osmolality Calculated 288 270 - 300 mOsm/kg 04/15/2022 3:10 AM [facility] eGFR by CKD-EPI >90 >=90 mL/min/1.7 3 m2 04/15/2022 3:10 AM [facility] Blood BLOOD SPECIMEN / Unknown Lab Venipuncture / Unknown 04/15/2022 2:35 AM CDT 04/15/2022 2:43 AM CDT Zi Apple PAINT TESTER-COMMERCIAL FRONT LOAD DRIVER LAB - CHEMISTRY ORDERA BLES Final Result [facility] [address] [place] [address], [facility] [phone] * (ABNORMAL) HEMOGLOBIN A1C (04/12/2022 4:03 AM CDT) Hemoglobin A1c 8.4(H) <=5.6 % 04/12/2022 8:53 AM [facility] Estimated Average Glucose 194 mg/dL 04/12/2022 8:53 AM [facility] Comment: HbA1c Interpretation: Normal : < 5.7% Pre-diabetes: 5.7-6.4% Diabetes: Equal to or greater than 6.5% Test results diagnostic of diabetes should be repeated for confirmation. Treatment target values recommended by ADA and other clinical organizations should be used to evaluate metabolic control in patients. Reference: [place] [employer] Association, Standards of Care in Diabetes -2020 In patients 70 years and older consider HbA1c target range of 7.0-7.5% (Reference: Nickolas Arroyo et al. JAMDA. 2012) The Sebia assay for the measurement of HbA1c is a National Glycohemoglobin Standardization Program (NGSP) certified method. Blood BLOOD SPECIMEN / Unknown Venipuncture / Unknown 04/12/2022 4:03 AM CDT 04/12/2022 4:08 AM CDT us Zi Apple APRN-COMMERCIAL FRONT LOAD DRIVER LAB - CHEMISTRY ORDERA BLES Final Result [address] [address], [place] [phone] * HIV-1 HIV-2 ANTIBODY + HIV P24 AG PANEL (01/03/2021 3:53 AM CDT) HIV Antigen/Antibod y 1 & 2 Non-reacti ve Non-react scar 01/03/2021 5:00 AM CDT [facility] Comment:Neither HIV-1 p24 An tigen nor HIV-1/HIV-2 Antibodies are detected. Blood BLOOD SPECIMEN / Unknown Lab Venipuncture / Unknown 01/03/2021 3:53 AM CDT 01/03/2021 4:26 AM CDT us Jenny Tariq PA-C LAB - CHEMISTRY ORDERABLES Final Result Performing Organization Address [facility] Co de Phone Number [address] [address], [place] [phone] from Last 3 Months or Most Recently Relevant to Health Maintenance Insurance [facility] Advance Directives * Full Code (Latest Code Status on File) Date Activated Date Inactivated Comments 04/11/2022 2:26 PM 04/17/2022 2:03 PM * Full Code Date Activated Date Inactivated Comments 04/06/2022 11:00 AM 04/09/2022 5:44 PM * Full Code Date Activated Date Inactivated Comments 01/01/2021 9:14 PM 01/13/2021 1:40 PM Care Teams Women'S Studies Lecturer Relationship Specialty Start Date End Date Jonnie Stoner MD [address] [address] PCP - General 08/16/21 Silvana Stahl MD [address] OF NEUROLOGY [place], [place] Resident Neurology 02/04/21
--- OUTSIDE RECORDS SUMMARY | 2025-06-04 14:31 | XMS_ITS | Data Portability ---
Author Organization [facility] DARCYLazaro Edwards Address [address] [place] [address] Assessment No assessment recorded. Plan of Treatment Reminders Order Date Submit Date Provider Last Modified By Organization Details Last Modified Time Details Appointments None recorded . Lab TSH + free T4, serum 2014 015 [facility], [address], [address], [place], [address], 5 12:33:17 vitamin D, 25-hydro xy, total, serum 2014 015 [facility], [address], [address], [place], [address], 5 09:27:09 glucose, fingerst ick, blood 2014 015 [email or web address] In-Office Order, Internal Use Only DO Not Attach Compendium DO Not Attach Compendium, Do Not Delete/merge, [id number] 5 13:50:46 CBC 2014 015 GEOVANNA [facility], [address], [address], [place], [address], 5 13:37:07 lipid panel, serum 2014 015 GEOVANNA [facility], [address], [address], [place], [address], 5 13:37:06 albumin, urine 2014 015 GEOVANNA [facility], [address], [address], [place], [address], 5 17:27:58 HbA1c (hemoglo bin A1c), blood 2014 015 GEOVANNA [facility], [address], [address], [place], [address], 5 13:37:08 CMP, serum or plasma 2014 015 GEOVANNA [facility], [address], [address], [place], [address], 5 13:37:07 vitamin B12 + folate, serum or blood 2014 015 [email or web address], [address], [address], [place], [address], 5 09:27:[address] referral - family history colon cancer 2014 016 GEOVANNA [facility]ude[facility] , [address], [address], 6 13:56:24 Procedures None recorded . Surgeries None recorded . Imaging None recorded . Medication Orders glimepir devan 1 mg tablet [address] [facility] [place], [address], 6 17:26:40 naproxen 500 mg tablet 2014 015 [facility], [address] [place], [address], 5 13:51:29 metformi n 500 mg tablet 2014 015 [facility], [address] [place], [address], 5 13:51:07 Patient TargetsNo targets recorded. Patient Instructions Encounter Date Encounter Id Patient Instructions Last Modified By Organization Details Last Modified Time 05/26/2015 [id number] medical record request* - records from feb 2015 admission yeimy Not available 06/04/2015 10:34:57 knee pain or injury: care instructions [email or web address] Not available 05/26/2015 14:22:17 Reason for Referral [...] DO Not Attach Compendium, Do Not Delete/merge, [id number] 05/26/2015 12:43:54 06/09/20 15 06/10/2015 lipid panel , serum cholesterol, total 185 mg/dL 125-20 0 normal Not Available [facility] [address], [address], 06/10/2015 13:37:06 06/09/20 15 06/10/2015 lipid panel , serum HDL cholesterol 39 mg/dL > or = 46 low Not Available [facility] [address], [address], 06/10/2015 13:37:06 06/09/20 15 06/10/2015 lipid panel , serum triglyceride s 235 mg/dL <150 high Not Available [facility] [address] [place], [address], 06/10/2015 13:37:06 06/09/20 15 06/10/2015 lipid panel , serum LDL-choleste rol 99 mg/dL _(jacoby c) <130 normal [place] able range <100 mg/dL for patie nts with CHD or diabe latricia and <70 mg/dL for diabe tic patie nts with known heart disea se. Not Available [address] [place], [address], 06/10/2015 13:37:06 06/09/20 15 06/10/2015 lipid panel , serum chol/HDLC ratio 4.7 (calc ) < or = 5.0 normal Not Available [address], [address], 06/10/2015 13:37:06 06/09/20 15 06/10/2015 lipid panel , serum non HDL cholesterol 146 mg/dL _(jacoby c) normal Targe t for non-H DL goldie stero l is 30 mg/dL highe r than LDL goldie stero l targe t. Not Available [address], [address], 06/10/2015 13:37:06 06/09/20 15 06/10/2015 micro album in/cr eatin ine, mass ratio , urine creatinine, random urine 153 mg/dL 20-320 normal Not Available [address], [address], 06/10/2015 13:37:06 06/09/20 15 06/10/2015 micro album in/cr eatin ine, mass ratio , urine microalbumin 2.3 mg/dL see note: normal Refer ence Range : Refer ence Range Not estab lishe d Not Available [address], [address], 06/10/2015 13:37:06 06/09/20 15 06/10/2015 micro album [...] a diagn ostic categ ory. Not Available [address], [address], 06/10/2015 13:37:06 06/09/20 15 06/10/2015 CMP, serum or plasm a glucose 175 mg/dL 65-99 high Fasti ng refer ence inter chani Not Available [facility] [address], [address], 06/10/2015 13:37:06 06/09/20 15 06/10/2015 CMP, serum or plasm a urea nitrogen (BUN) 6 mg/dL 7-25 low Not Available [address], [address], 06/10/2015 13:37:06 06/09/20 15 06/10/2015 CMP, serum or plasm a creatinine 0.58 mg/dL 0.50-1 .10 normal Not Available [address], [address], 06/10/2015 13:37:06 06/09/20 15 06/10/2015 CMP, serum or plasm a eGFR non-afr. albanian 108 mL/mi n/1.7 3m2 > or = 60 normal Not Available [facility] [address], [address], 06/10/2015 13:37:06 06/09/20 15 06/10/2015 CMP, serum or plasm a eGFR 125 mL/mi n/1.7 3m2 > or = 60 normal Not Available [facility] [address], [address], 06/10/2015 13:37:06 06/09/20 15 06/10/2015 CMP, serum or plasm a BUN/creatini ne ratio 10 (calc ) 6-22 normal Not Available [address], [address], 06/10/2015 13:37:06 06/09/20 15 06/10/2015 CMP, serum or plasm a sodium 137 mmol/ L 135-14 6 normal Not Available [address], [address], 06/10/2015 13:37:06 06/09/20 15 06/10/2015 CMP, serum or plasm a potassium 4.6 mmol/ L 3.5-5. 3 normal Not Available [address], [address], 06/10/2015 13:37:06 06/09/20 15 06/10/2015 CMP, serum or plasm a chloride 100 mmol/ L 98-110 normal Not Available [address], [address], 06/10/2015 13:37:06 06/09/20 15 06/10/2015 CMP, serum or plasm a carbon dioxide 26 mmol/ L 19-30 normal Not Available [address], [address], 06/10/2015 13:37:06 06/09/20 15 06/10/2015 CMP, serum or plasm a calcium 9.2 mg/dL 8.6-10 .2 normal Not Available [address], [address], 06/10/2015 13:37:06 06/09/20 15 06/10/2015 CMP, serum or plasm a protein, total 6.8 g/dL 6.1-8. 1 normal Not Available [address], [address], 06/10/2015 13:37:06 06/09/20 15 06/10/2015 CMP, serum or plasm a albumin 4.1 g/dL 3.6-5. 1 normal Not Available [address], [address], 06/10/2015 13:37:06 06/09/20 15 06/10/2015 CMP, serum or plasm a globulin 2.7 g/dL_ (calc ) 1.9-3. 7 normal Not Available [address], [address], 06/10/2015 13:37:06 06/09/20 15 06/10/2015 CMP, serum or plasm a albumin/glob ulin ratio 1.5 (calc ) 1.0-2. 5 normal Not Available [address], [address], 06/10/2015 13:37:06 06/09/20 15 06/10/2015 CMP, serum or plasm a bilirubin, total 0.7 mg/dL 0.2-1. 2 normal Not Available [address], [address], 06/10/2015 13:37:06 06/09/20 15 06/10/2015 CMP, serum or plasm a alkaline phosphatase 90 U/L 33-115 normal Not Available [facility] [employer] [address] [address] [place], [address], 06/10/2015 13:37:06 06/09/20 15 06/10/2015 CMP, serum or plasm a AST 24 U/L 10-35 normal Not Available [address], [address], 06/10/2015 13:37:06 06/09/20 15 06/10/2015 CMP, serum or plasm a ALT 29 U/L 6-29 normal Not Available [facility] [address] [address] [place], [address], 06/10/2015 13:37:06 06/09/20 15 06/10/2015 CBC white blood cell count 7.7 thous and/u L 3.8-10 .8 normal Not Available [address], [address], 06/10/2015 13:37:07 06/09/20 15 06/10/2015 CBC red blood cell count 4.67 otto on/uL 3.80-5 .10 normal Not Available [address], [address], 06/10/2015 13:37:07 06/09/20 15 06/10/2015 CBC hemoglobin 13.5 g/dL 11.7-1 5.5 normal Not Available [address], [address], 06/10/2015 13:37:07 06/09/20 15 06/10/2015 CBC hematocrit 41.9 % 35.0-4 5.0 normal Not Available [address], [address], 06/10/2015 13:37:07 06/09/20 15 06/10/2015 CBC MCV 89.7 fL 80.0-1 00.0 normal Not Available [address], [address], 06/10/2015 13:37:07 06/09/20 15 06/10/2015 CBC MCH 28.9 pg 27.0-3 3.0 normal Not Available [address], [address], 06/10/2015 13:37:07 06/09/20 15 06/10/2015 CBC MCHC 32.2 g/dL 32.0-3 6.0 normal Not Available [address], [address], 06/10/2015 13:37:07 06/09/20 15 06/10/2015 CBC RDW 13.3 % 11.0-1 5.0 normal Not Available [facility] [address] [place], [address], 06/10/2015 13:37:07 06/09/20 15 06/10/2015 CBC platelet count 307 thous and/u L 140-40 0 normal Not Available [facility] [address], [address], 06/10/2015 13:37:07 06/09/20 15 06/10/2015 vitam in [...] pg/mL will have sympt oms. Not Available [facility] [address], [address], 06/10/2015 13:37:08 06/09/20 15 06/10/2015 vitam in B12 + folat e, serum or blood folate, serum 16.6 NG/mL normal Refer ence Range Low: <3.4 Borde rline : 3.4-5 .4 Edie l: >5.4 Not Available [facility] [address] [place], [address], 06/10/2015 13:37:08 06/09/20 15 06/10/2015 vitam in [...] /MS is recom d[place] d: order code 37031 (jayjay ents >2yrs ). For more infor [place] cam on this test, go to: http: //[facility] trevizo stdia gnost ics.c om/fa q/FAQ 163 (This link is being provi ded for infor matgavi nal/e ducat ional purpo ses only. ) Not Available [facility] [address] [place], [address], 06/10/2015 13:37:08 06/09/20 15 06/10/2015 HbA1c (hemo [...] diabe latricia for child bella. Not Available [facility] [address] [place], [address], 06/10/2015 13:37:08 Result Notes None recorded. Problems Name Problem SNOMED Code Status Onset Date Resolution Date Notes Provider Name and Address Organization Details Recorded Time Diabetes mellitus [id number] Ritesh Carrasco MD Attn: Ja jose luis,[address] [facility], [place], [address], [facility] 6 17:26:39 Neuropathy due to diabetes mellitus [id number] Ritesh Carrasco MD Attn: Ja jose luis,[address] [facility], [place], [address], [facility] 6 17:26:39 Obesity 211604030 Ritesh Carrasco MD Attn: Gretelcyrus amaya,[address] [facility], [place], [address], [facility] 6 17:26:39 Diarrhea 96320537 Ritesh Carrasco MD Attn: Ja jose luis,[address] [facility], [place], [address], [facility] 5 13:50:44 Abnormal weight loss 063083146 Ritesh Carrasco MD Attn: Ja jose luis,[address] [facility], [place], [address], [facility] 5 10:58:36 Steatotic liver disease 048299429 Ritesh Carrasco MD Attn: Ja jose luis,[address] [facility], [place], [address], [facility] 6 17:26:39 Knee pain Ritesh Carrasco MD Attn: Ja jose luis,[address] [facility], [place], [address], [facility] 5 13:50:44 Disorder of biliary tract [id number] Ritesh Carrasco MD Attn: Ja amaya,[address] [facility], [place], [address], [facility] 5 13:50:44 Problem Notes None recorded. Procedures Surgical History Date Name Laterality Status Provider Name and Address Organization Details Recorded Time Hernia Repair completed Lj Li MA [facility] 05/26/2015 12:43:53 Caesarean Section completed Lj Li MA [facility] 05/26/2015 12:43:53 Cholecystectomy completed Lj Li MA [facility] 05/26/2015 12:43:53 Imaging Results None recorded. Procedure Notes None recorded. Medical Equipment None Reported. Allergies Allergen ID Allergen Name Allergen Category Reaction Reaction Severity Criticality Documentation Date Start Date Code Code System Note Provider Name and Address Organization Details Recorded Time 73915 Product containin g penicilli n (product) medicatio n Not available Not available Not available 05/26/2015 54677 8001 SNOMED Lj wei MA null, [facility] 5 12:43:54 Medications Name Sig Start Date [...] Updated DateTime 6 161.925 cm 86 /min 029153. 82423 g 40.7 kg/m2 97.9 [degF] 160/80 mm[Hg] Lj wei MA [facility] 6 16:43:49 Date Recorded Body weight Body height Body temperature Heart rate Body mass index (BMI) Systolic And Diastolic Provider Name and Address Organization Details Last Updated DateTime 5 135241. 85992 g 161.925 cm 97.9 [degF] 76 /min 39.4 kg/m2 140/86 mm[Hg] Lj wei MA [facility] 5 12:43:53 Social History Question Answer Notes LastModified by Organizat ion Details LastModified Time Tobacco Smoking Status Current Every Day Smoker Lj Li MA null, [facility] 05/26/2015 12:43:53 How Much Tobacco Do You [...] ICD10 Code Diagnosis IMO Codes Diagnosis Note [id number] MD Jana Garzon (Adult Med) [address] [place] [address] 05/26/2015 11:12:23 05/26/2015 14:39:34 Diabetes mellitus 74415164 E11.40 Neuropathy due to diabetes mellitus 596942326 E11.40 Obesity 447521826 E66.9 Diarrhea 18647931 R19.7 Abnormal weight loss 267 766892 R63.4 Steatotic liver disease 106321622 K76.0 Knee pain 75365641 M25.5 63 Family his tory of cancer of colon 656792388 Z80.0 Disorder o f biliary tract 736590692 K83.9 [id number] Татьяна Carrasco MD [facility] (Adult Med) [address] [place] [address] 07/07/2015 16:17:04 07/07/2015 17:26:01 Diabetes mellitus 24629325 E11.40 Pt to call with FBS levels in 2 weeks Neuropathy due to diabetes mellitus 778583129 E11.40 Steatotic liver disease 915459348 K76.0 Obesity 321923894 E66.9 Health Concerns Section Related Observation LastModified by Organization Detai ls LastModified Time None Recorded Concern Status LastModified by Organization Details LastModified Time None Recorded Advance Directives Directive None Recorded Payers Insurance Date Sequence Insurance Name Policy Number Policy Feliz Covered Member ID Feliz Member ID Guarantor Name 10/03/2015 1 [facility] (PPO) [id number] Melissa Story [id number] Zeenat Story Notes Date Note Type Note Provider Name and Address Organization Details Recorded Time 05/26/2015 text/html Diabetic on metformin. Has also had recurrent episodes of pancreatitis. Has had ERCP( 01/25) [facility]. Stents placed and removed. Also had cholecystectomy. Pt also has hepatic steatosis. DM not properly controlled. Татьяна Carrasco MD Attn: Accounting,[address] [facility], [place], [address], [place] [facility] [place] 05/26/2015 13:52:50 OBGyn Episode No OBEpisode recorded.
== END 2025-06-04 13:32 | disposition home or self-care (01) ==
PROVIDERS: PCP Nurse Practitioner Family; Visit Provider Internal Medicine Pulmonary Disease
DX: R06.09 Other forms of dyspnea (principal); D89.9 Disorder involving the immune mechanism, unspecified; I36.1 Nonrheumatic tricuspid (valve) insufficiency
CPT/HCPCS: 93306